=== PATIENT | female | born 1945 | race Caucasian/White ===

== ENCOUNTER 2016-12-16 11:54 | Observation (INO) | payer MEDICARE, OTHER ==
[2016-12-16] MEDS ORDERED: METHYLPREDNISOLONE SOD SUCC/PF 40 MG/ML VIAL IV ONE (12:07)
[2016-12-16] MEDS ORDERED: ALBUTEROL SULFATE/IPRATROPIUM 3 ML NEBU IH ONE ×2 (12:07→12:18)
[2016-12-16 12:27] LABS: Hemoglobin 13.5 gm/dL (12.5-16.0); Mean Cell Volume 91.3 fl (78-100); Mean Corpuscular Hemoglobin 29.3 pg (27-31); Mean Corpuscular Hgb Conc 32.1 g/dl (32-36); Mean Platelet Volume 10.3 fl (6.0-9.5); Neutrophil # 5.9 K/mm3 (1.3-6.0); Neutrophil % 72.6 % (42-75.0); Platelet Count 230 K/mm3 (150-450); Red Cell Distribution Width 13.1 % (11.5-14.0); White Blood Count 8.1 K/mm3 (4.0-10.5)
--- OUTSIDE RECORDS SUMMARY | 2016-12-16 12:29 | XMS REPORT | Continuity of Care Document ---
:1945 Author Organization [facility] ([facility]) Address [address] [place] [address] Phone [phone] Care Team Providers Name Role Phone Unavailable Primary Care Provider Unavailable Source Comments This disclosure is being made pursuant to the Care Everywhere program, applicable federal and state laws, and may not contain all informaitonavailable regarding this patient.[facility] ([facility]) Active Allergies and Adverse Reactions Not on File Current Medications Not on file Active Problems Not on file Social History Tobacco Use Types Packs/Day Years Used Date Never Assessed Last Filed Vital Signs Vital Sign Reading Time Taken Blood Pressure - - Pulse - - Temperature - - Respiratory Rate - - Height 1.575 m (5' 2") 07/17/2001 8:00 PM CDT Weight 66.497 kg (146 lb 9.6 oz) 07/17/2001 8:00 PM CDT Body Mass Index 26.81 07/17/2001 8:00 PM CDT Oxygen Saturation - - Plan of Care Health Maintenance Due Date Last Done Comments Hepatitis B Vaccine (1 of 3 - Primary Series) 1945 Tdap Vaccine 1955 Lipid Disorder Screening 1962 Td Vaccine 1962 Colonoscopy 1994 Mammogram 10/05/2002 10/05/2001 Zoster Vaccine 2004 Osteoporosis Screening (DXA Bone Density) 2009 Pneumococcal Vaccine (1 of 2 - PCV13) 2009 Influenza Vaccine: Seasonal (#1) 06/07/2016 Results from Last 3 Months Not on file
[2016-12-16] MEDS ORDERED: METHYLPREDNISOLONE SOD SUCC/PF 40 MG/ML VIAL ONE (12:33)
[2016-12-16 12:48] LABS: Urine Bilirubin Negative (NEGATIVE); Urine Blood Negative /ul (NEGATIVE); Urine Ketone Negative (NEGATIVE); Urine Nitrite Negative (NEGATIVE); Urine Protein Negative (NEGATIVE); Urine Urobilinogen Normal (NORMAL)
[2016-12-16 12:48] LABS: Albumin * 3.8 gm/dl (3.4-5.0); Anion Gap 11.8 mmol/L (6.8-13.8); BUN/Creatinine Ratio 17.9 (9.0-21.6); Blood Urea Nitrogen 14 mg/dL (3-23); Calcium * 9.7 mg/dL (7.9-10.9); Carbon Dioxide 28.4 mmol/L (24-32.6); Chloride 104 mmol/L (97-106); Glucose * 101 mg/dL (70-110); Potassium 4.2 mmol/L (3.4-4.6); Sodium 140 mmol/L (132-142); Total Protein 7.8 gm/dL (6.2-8.2)
[2016-12-16 12:49] LABS: ALT 22 U/L (19-67); AST 15 U/L (0-48); Alkaline Phosphatase * 108 U/L (50-170); Bilirubin, Total 0.3 mg/dL (0.0-1.1); Ca. Corrected For Albumin 9.5 mg/dL (8.4-10.2); Lipase 121 U/L (73-393); Troponin I Less than 0.017 ng/ml (0.00-0.10)
[2016-12-16 13:07] LABS: Urine Appearance Clear; Urine Bacteria None Seen; Urine Color Yellow; Urine RBC None Seen /hpf (0-5); Urine WBC None Seen /hpf (0-5)
[2016-12-16] MEDS ORDERED: DIATRIZOATE MEGLU/DIATRIZO SOD 30 ML BTL ONE (13:49)
[2016-12-16] MEDS ORDERED: DIATRIZOATE MEGLU/DIATRIZO SOD 30 ML BTL PO ONE (13:53)
[2016-12-16] MEDS ORDERED: ALBUTEROL SULFATE 2.5 MG/0.5 ML VIAL.NEB IH ONE ×2 (16:31→16:33)
--- OUTSIDE RECORDS SUMMARY | 2016-12-16 16:57 | XMS REPORT | Continuity of Care Document ---
:1945 Author Organization [facility] ([facility]) Address [address] [place] [address] Phone [phone] Care Team Providers Name Role Phone Unavailable Primary Care Provider Unavailable Source Comments This disclosure is being made pursuant to the Care Everywhere program, applicable federal and state laws, and may not contain all informaitonavailable regarding this patient.[facility] ([facility]) Active Allergies and Adverse Reactions Not on [...]
--- NOTE | 2016-12-16 16:58 | ERNOTE ---
Dyspnea - Date Date of Service: 12/16/16 - General Presenting Symptoms: shortness of breath, other - right sided abdominal pain Time Seen by Provider: 12/16/16 12:02 Source: patient Exam Limitations: no limitations - Immun/Allergies/Home Medications Immunizations: IMMUNIZATION HX Immunizations Up to Date Yes History of Influenza Vaccine No Hx Pneumococcal Vaccination Yes Allergies/Adverse Reactions: Allergies No Known Allergies Allergy (Verified 12/16/16 12:43) Home Medications: HOME MEDICATIONS Fluticasone/Salmeterol [Advair 100-50 Diskus] 1 each IH DAILY 10/26/15 [Last Taken Unknown] Albuterol Sulfate [Albuterol Sulfate 0.63 MG/3ML] 0.63 mg IH PRN #1 vial.neb [Last Taken Unknown] Amlodipine Besylate 10 mg PO DAILY 04/04/16 [Last Taken Unknown] Omeprazole 40 mg PO DAILY 04/04/16 [Last Taken 04/04/16] Tramadol HCl [Rybix Odt] 50 mg PO HS 12/16/16 [Last Taken Unknown] - History of Present Illness Narrative: Patient presents to the ED for increased SOB and right sided abdominal pain. SHe relates she has been having right upper abdominal pain for the last several day, started over the weekend. Couldn't sleep with it. Normal bowel movements. Went to doctor, labs and x-ray done - reviewed. She also relates increase SOB and GARCIA, increasing over the last several days. No CP. No fever. Some increased cough. No vomiting or urinary Sx. Nothing seems to make the abdominal pain better or worse. Severity: moderate Initiating event: Reports: none Modifying Factors - (Improves): Reports: rest, other Modifying Factors (Worsens): Reports: activity Associated Symptoms-Dyspnea: Reports: cough, wheezing. Denies: fever/chills, chest pain/discomfort Prior Treatment: Reports: recently seen Review of Systems - Review of Systems Constitutional: Absent: fever ENT: Absent: sore throat Respiratory: Present: shortness of breath Cardiology: Absent: chest pain Gastrointestinal/Abdominal: Present: abdominal pain Genitourinary: Absent: dysuria All Other Systems: All systems neg except as marked - Patient's Past Medical History Patient History - Medical: GERD Patient History - Cardiac/Respiratory: COPD Patient History - Cancer: No Hx of Cancer Patient History - Surgical Procedures: Appendectomy, Cholecystectomy, Tubal Ligation Patient History - Other: None LMP (females 10-50): Menopausal - Family History Mother Family History - Medical: No pertinent hx Family History - Cardiac/Respiratory: Hypertension Father Family History - Medical: Family History - Cardiac/Respiratory: Coronary Heart Disease, CVA/Stroke, Hypertension - Social History Living Situations: home Abuse History: No History of abuse Psych History: No pertinent hx Does anyone smoke in the home?: No Smoking Status: Former smoker Alcohol Use: occasionally Drug Use: none - Immunizations Immunizations Up to Date: Yes Hx Pneumococcal Vaccination: Yes History of Influenza Vaccine: No Physical Exam - Physical Exam General Appearance: Present: alert, mild distress Eye Exam: Normal inspection: bilateral, PERRL: bilateral Ears, Nose, Throat: Present: normal ENT inspection Neck: Present: normal inspection Respiratory: Present: wheezing, other - mild tachypnea, diffuse scattered wheezing. Absent: stridor Cardiovascular/Chest: Present: regular rate, rhythm Gastrointestinal/Abdominal: Present: normal bowel sounds, nondistended, soft, other - tenderness RUQ, no mass, no peritoneal signs. Non-surgical exam. 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 Absent: motor weakness Skin Exam: Absent: skin rash ED Progress - Results and Orders Patient's Lab Results:: I have reviewed the patient's lab results. - Vital Signs Patient's Vital Signs:: I have reviewed the patient's vital signs. Vital Signs: Vital Signs 12/16/16 12/16/16 12/16/16 11:55 12:42 13:54 Temperature 36.1 C L Pulse Rate 88 81 85 Respiratory 17 17 16 Rate Blood Pressure 190/84 154/60 151/68 O2 Sat by Pulse 96 96 92 Oximetry 12/16/16 12/16/16 12/16/16 14:10 14:47 15:10 Temperature Pulse Rate 87 87 91 Respiratory 16 16 16 Rate Blood Pressure 159/74 177/66 178/88 O2 Sat by Pulse 93 93 93 Oximetry - EKG EKG: NSR EKG read: Interp. by me EKG Comments: rate 85. No STEMI, non-specific ST/T wave changes. - X-Ray X-Ray #1 X-Ray: chest Interpretation: Reviewed by me X-ray Comments: I reviewed radiology report - CT/Ultrasound CT/Ultrasound Narrative: CT report reviewed per radiology - Progress/Reassessment Chief Complaint: Dyspnea Progress Note-Subjective: 12/16/16 16:56 Patient received IV solumedrol and neb. Additional albuterol give. Still with some mild wheezing. With ambulation she becomes quite SOB and tachypnic, sats 88%RA and HR > 110. Given this she does not feel well enough to fgo home. D/W Dr Haywood who will admit. No clear etiology of her abdominal pain. Departure Clinical Impression: COPD with exacerbation, Abdominal pain - Departure Disposition: [facility] Condition: Fair Referrals: Pau Haywood MD [Primary Care Provider] -
[2016-12-16] MEDS ORDERED: MAGNESIUM CITRATE 300 ML BTL PO ONE (20:55)
[2016-12-16] MEDS ORDERED: METHYLPREDNISOLONE SOD SUCC 60 MG in WATER FOR INJ.,BACTERIOSTATIC 0 ML IV SCH (21:00)
[2016-12-16] MEDS ORDERED: traMADol HCL 50 MG TABLET PO SCH (21:07)
[2016-12-16] MEDS ORDERED: KETOROLAC TROMETHAMINE 15 MG/ML VIAL IV PRN (21:25)
--- NOTE | 2016-12-16 21:26 | HP ---
Chief Complaint - Chief Complaint Date of Service: 12/16/16 Time of Service: 21:25 Chief Complaint: "Abdominal Pain, SOB. ". Source of HPI- Pt; reliable, ER provider report. History of Present Illness: Ms. Maddox is a 71-yr-old [place] pt of Dr. Pau Haywood with a PMH of: COPD, HTN, GERD & Osteoathritis. Pt states that 2 weeks ago, she developed pain on the Lateral RT side of the Abdomen. She went to see a chiropractor as she thought her pain was from poor sleeping position. She states that the chiropractor services seemed to help initially, but the pain got worse again and she was advised to see her PCP. She saw Dr. Haywood on 12/14/16 and had Abd. X-ray imaging which was unremarkable except for moderate stool retention. But in speaking to her, she states that her bowels are moving normally. She had laboratory studies as well and they were in NR. She was also prescribed Tramadol for pain. Pt states that she has been taking the medication as ordered , but the pain has not subsided. This morning after she woke up, she suddenly felt SOB and along with the ongoing RT side abd pain, she chose to come to the [facility] ER. She was noted to have expiratory wheezing in ER and received treatments with nebulizer and IV steroid. Due to the history of COPD, decision was made to admit her under observation to ensure she does not suffer worsening airway limitation. - Patient's Past Medical History Patient History - Medical: GERD, Osteoarthritis Patient History - Cardiac/Respiratory: COPD Patient History - Cancer: No Hx of Cancer Patient History - Surgical Procedures: Appendectomy, Cholecystectomy, Tubal Ligation Patient History - Other: None LMP (females 10-50): Menopausal - Family History Mother Family History - Medical: No pertinent hx Family History - Cardiac/Respiratory: Hypertension Father Family History - Medical: Family History - Cardiac/Respiratory: Coronary Heart Disease, CVA/Stroke, Hypertension - Social History Living Situations: home Abuse History: No History of abuse Psych History: No pertinent hx Does anyone smoke in the home?: No Smoking Status: Former smoker Have you smoked in the past 12 months: No Smoking Start Date: 11/07/00 Alcohol Use: occasionally Drug Use: none - Immunizations Immunizations Up to Date: Yes Hx Pneumococcal Vaccination: Yes History of Influenza Vaccine: Yes Review Of Systems (GEN) - Review of Systems Generalized/Overall Review: Present: Diaphoresis. Absent: Weakness, Chills, Fever, Fatigue EENTM: Absent: Eye Pain, Blurred Vision, Tearing, Double Vision, Nose Congestion Respiratory: Absent: Cough, Shortness of Breath, Wheezing Cardiac: Absent: Chest Pain, Edema, Palpitations Abdominal: Absent: Nausea, Vomiting, Hematemesis, Abdominal Pain, Constipation, Diarrhea, Melena Genitourinary: Absent: Burning, Itching, Urgency, Frequency Musculoskeletal: Present: Joint Pain, Other - RT Lateral ABD Pain. Neurological: Absent: Headache, Anxiety, Depressed, Emotional Problems, Weakness Skin: Absent: Dryness, Lesions Endocrine: Absent: Intolerance to Cold, Intolerance to Heat, Increased Hunger, Increased Thirst Misc: All systems neg except as marked Immunizations: IMMUNIZATION HX Immunizations Up to Date Yes History of Influenza Vaccine No Hx Pneumococcal Vaccination Yes Allergies/Adverse Reactions: Allergies Allergy/AdvReac Type Severity Reaction Status Date / Time No Known Allergies Allergy Verified 12/16/16 12:43 Home Medications: HOME MEDICATIONS Fluticasone/Salmeterol [Advair 100-50 Diskus] 1 each IH DAILY 10/26/15 [Last Taken Unknown] Albuterol Sulfate [Albuterol Sulfate 0.63 MG/3ML] 0.63 mg IH PRN #1 vial.neb [Last Taken Unknown] Amlodipine Besylate 10 mg PO DAILY 04/04/16 [Last Taken Unknown] Omeprazole 40 mg PO DAILY 04/04/16 [Last Taken 04/04/16] Tramadol HCl [Rybix Odt] 50 mg PO HS 12/16/16 [Last Taken Unknown] Exam - Exam Vital Signs: Vital Signs - Last Taken Temp 36.7 C 12/16/16 17:12 Pulse 93 12/16/16 17:12 Resp 20 12/16/16 17:12 BP 145/69 12/16/16 17:12 Pulse Ox 93 12/16/16 17:12 Constitutional: Present: Alert, Oriented x3, No distress ENT Exam: Present: normal ENT inspection, hearing grossly normal. Absent: nasal congestion, nasal drainage, dry mucous membranes Eye Exam: bilateral eye: normal inspection, PERRL Neck: Present: full range of motion, supple, normal inspection Back Exam: Present: no CVA tenderness Breasts: Present: Exam deferred Respiratory: Present: lungs clear, no accessory muscle use, No wheezing Cardiovascular/Chest: Present: normal peripheral pulses, regular rate, rhythm, no murmur Abdomen: Present: Normal bowel sounds, soft, nontender /Rectal: Present: Exam deferred Extremity: Present: normal range of motion, non-tender, normal inspection Skin Exam: Present: warm/dry, no cyanosis Lymphatic: Present: no adenopathy Neurologic: Present: no motor/sensory deficits, alert, oriented x 3 Appearance: Present: appropriate appearance, appropriate insight Eye contact: Present: cooperative, good eye contact, normal speech Thoughts: Present: normal thought pattern, no apparent hallucination Diagnostic Studies: Laboratory Results WBC 8.1 K/mm3 (4.0-10.5) 12/16/16 12:20 RBC 4.60 M/mm3 (4.2-5.4) 12/16/16 12:20 Hgb 13.5 gm/dL (12.5-16.0) 12/16/16 12:20 Hct 42.0 % (37.0-47.0) 12/16/16 12:20 MCV 91.3 fl (78-100) 12/16/16 12:20 MCH 29.3 pg (27-31) 12/16/16 12:20 MCHC 32.1 g/dl (32-36) 12/16/16 12:20 RDW 13.1 % (11.5-14.0) 12/16/16 12:20 Plt Count 230 K/mm3 (150-450) 12/16/16 12:20 MPV 10.3 fl (6.0-9.5) H 12/16/16 12:20 Immature Gran % (Auto) 0.40 % (0.001-0.429) 12/16/16 12:20 Immature Gran # (Auto) 0.03 K/mm3 (0.000-0.0310) 12/16/16 12:20 Neutrophils % 72.6 % (42-75.0) 12/16/16 12:20 Lymphocytes % 18.0 % (20-51) L 12/16/16 12:20 Monocytes % 5.2 % (0.0-9) 12/16/16 12:20 Eosinophils % 2.8 % (0.0-3.0) 12/16/16 12:20 Basophils % 1.0 % (0.0-1.0) 12/16/16 12:20 Nucleated RBC % 0.0 k/mm3 (0-1) 12/16/16 12:20 Neutrophils # 5.9 K/mm3 (1.3-6.0) 12/16/16 12:20 Lymphocytes # 1.5 k/mm3 (1.5-3.5) 12/16/16 12:20 Monocytes # 0.4 k/mm3 (0.0-1.0) 12/16/16 12:20 Eosinophils # 0.2 k/mm3 (0.0-0.7) 12/16/16 12:20 Absolute Basophils 0.1 k/mm3 (0.0-0.1) 12/16/16 12:20 Sodium 140 mmol/L (132-142) 12/16/16 12:20 Plasma Sodium 140 mmol/L (130-142) 12/16/16 12:20 Potassium 4.2 mmol/L (3.4-4.6) 12/16/16 12:20 Chloride 104 mmol/L (97-106) 12/16/16 12:20 Carbon Dioxide 28.4 mmol/L (24-32.6) 12/16/16 12:20 Anion Gap 11.8 mmol/L (6.8-13.8) 12/16/16 12:20 BUN 14 mg/dL (3-23) 12/16/16 12:20 Creatinine 0.78 mg/dL (0.4-1.4) 12/16/16 12:20 Est GFR (Non-Af Amer) 77 mL/min (60-130) 12/16/16 12:20 BUN/Creatinine Ratio 17.9 (9.0-21.6) 12/16/16 12:20 Random Glucose 101 mg/dL (70-110) D 12/16/16 12:20 Lactic Acid, Venous 1.6 mmol/L (0.4-2.0) 12/16/16 12:20 Calcium 9.7 mg/dL (7.9-10.9) 12/16/16 12:20 Calcium Adj for Albumin 9.5 mg/dL (8.4-10.2) 12/16/16 12:20 Total Bilirubin 0.3 mg/dL (0.0-1.1) 12/16/16 12:20 AST 15 U/L (0-48) 12/16/16 12:20 ALT 22 U/L (19-67) 12/16/16 12:20 Alkaline Phosphatase 108 U/L (50-170) 12/16/16 12:20 Troponin I Less than 0.017 ng/ml (0.00-0.10) 12/16/16 12:20 Total Protein 7.8 gm/dL (6.2-8.2) 12/16/16 12:20 Albumin 3.8 gm/dl (3.4-5.0) 12/16/16 12:20 Lipase 121 U/L (73-393) 12/16/16 12:20 Urine Color Yellow 12/16/16 12:38 Urine Appearance Clear 12/16/16 12:38 Urine pH 6.0 pH (5.0-7.0) 12/16/16 12:38 Ur Specific [place] 1.010 SP.GR. (1.005-1.010) 12/16/16 12:38 Urine Protein Negative mg/dL (NEGATIVE) 12/16/16 12:38 Urine Glucose (UA) Negative mg/dL (NEGATIVE) 12/16/16 12:38 Urine Ketones Negative mg/dL (NEGATIVE) 12/16/16 12:38 Urine Blood Negative /ul (NEGATIVE) 12/16/16 12:38 Urine Nitrate Negative (NEGATIVE) 12/16/16 12:38 Urine Bilirubin Negative mg/dl (NEGATIVE) 12/16/16 12:38 Urine Urobilinogen Normal EU/dl (NORMAL) 12/16/16 12:38 Ur Leukocyte Esterase Negative /ul (NEGATIVE) 12/16/16 12:38 Urine RBC None seen /hpf (0-5) 12/16/16 12:38 Urine WBC None seen /hpf (0-5) 12/16/16 12:38 Ur Epithelial Cells None seen /hpf (0-5) 12/16/16 12:38 Urine Bacteria None seen (NONE) 12/16/16 12:38 Urine Culture Comments No culture indicated 12/16/16 12:38 Assessment/Plan - Assessment/Plan (1) COPD with exacerbation Assessment: Even though pt reported being dyspneic and had exp. wheezing, she did not have other symptoms that accompany COPD Exacerbation- worsening cough & increasing sputum production. The Hematology and chemistry labs was unremarkable. The CXR did not have any acute findings. Will continue treatment with scheduled duonebs. Anticipate discharge in am and may continue with COPD maintenance treatments. Problem: Acute (2) Abdominal pain Assessment: The CT of the Abdomen did not have any acute findings. The Abd. X-ray did not have acute findings apart from moderate stool retention, and states that her bowels are moving normally, and declined the stool stimulant laxative. Labs results were in NR. The abd pain is not accompanied with n/v, diarrhea & pain radiation. In examining Ms Maddox, I believe her RT Lateral abd pain is muscular related and involves the external oblique muscle especially given the fact that there is reproduction of pain with applied pressure & worsening pain with exercise. May consider adding topical agents- lidocaine, capscaisin cream & Encourage chiropractics manipulation. Problem: Acute (3) GERD (gastroesophageal reflux disease) Problem: Chronic (4) Hypertension Problem: Chronic Qualifiers: Hypertension type: essential hypertension Qualified Code(s): I10 - Essential (primary) hypertension
[2016-12-16] MEDS: ALBUTEROL SULFATE/IPRATROPIUM 3 ML NEBU IH SCH (21:28)
[2016-12-16] MEDS ORDERED: METHYLPREDNISOLONE SOD SUCC/PF 125 MG/2 ML VIAL IV SCH (22:00)
[2016-12-17] MEDS: ALBUTEROL SULFATE/IPRATROPIUM 3 ML NEBU IH SCH ×2 (00:27→06:16)
[2016-12-17] MEDS ORDERED: PANTOPRAZOLE SODIUM 40 MG TABLET.EC PO SCH (07:00)
--- NOTE | 2016-12-17 08:45 | DS ---
Description of Stay: Demi Maddox is a 71-yr-old WF pt , with a PMH of: COPD, HTN, GERD & Osteoathritis who was admited on 12/16/2016 for SOB abd abdominal pain. Pt states that 2 weeks [employer], she developed pain on the Lateral RT side of the Abdomen. She went to see a chiropractor as she thought her pain was from poor sleeping position. She states that the chiropractor services seemed to help initially, but the pain got worse again and she was advised to see her PCP. She saw Dr. Haywood on 12/14/16 and had Abd. X-ray imaging which was unremarkable except for moderate stool retention. But in speaking to her, she states that her bowels are moving normally. She had laboratory studies as well and they were in NR. She was also prescribed Tramadol for pain. Pt states that she has been taking the medication as ordered, but the pain has not subsided. This morning after she woke up, she suddenly felt SOB and along with the ongoing RT side abd pain, she chose to come to the [facility] ER. She was noted to have expiratory wheezing in ER and received treatments with nebulizer and IV steroid. Due to the history of COPD, decision was made to admit her under observation to ensure she does not suffer worsening airway limitation. She improved clinically and thismorning had 2 BM's. She is feeling much better and no longer SOB. She is stable to be discharge and will schedule a EGD with Dr. Snow on an outpatient basis with her follow up.. Procedures Performed: none Discharge Disposition: Home self care Disposition: Home self-care Condition: Good Discharge Activity: Activity as tolerated Discharge Diet: General/regular food Referrals: Pau Haywood MD [Primary Care Provider] - Additional Patient Instructions (free text): Follow up with PCP in 2 weeks. Prescriptions (Any new or edited meds): Albuterol Sulfate [Proair Hfa] 1 - 2 puff IH Q4H PRN #1 inhaler PRN Reason: Shortness Of Breath Docusate Sodium [Colace] 100 mg PO BID #60 capsule Complete Home Medications List: Complete Home Medication List: Fluticasone/Salmeterol [Advair 100-50 Diskus] 1 each IH DAILY 10/26/15 Albuterol Sulfate [Albuterol Sulfate 0.63 MG/3ML] 0.63 mg IH PRN #1 vial.neb Amlodipine Besylate 10 mg PO DAILY 04/04/16 Omeprazole 40 mg PO DAILY 04/04/16 Tramadol HCl [Rybix Odt] 50 mg PO HS 12/16/16 Albuterol Sulfate [Proair Hfa] 1 - 2 puff IH Q4H PRN #1 inhaler 12/17/16 Docusate Sodium [Colace] 100 mg PO BID #60 capsule 12/17/16
[2016-12-17] MEDS ORDERED: FLUTICASONE IH SCH ×2 (09:00)
[2016-12-17] MEDS ORDERED: SALMETEROL IH SCH ×2 (09:00)
[2016-12-17] MEDS ORDERED: amLODIPine BESYLATE 10 MG TABLET PO SCH (09:00)
[2016-12-17 10:03] VITALS: BP 133/68
== END 2016-12-17 11:50 | disposition home or self-care (01) ==
LOC: ER 11:54 → MS 16:44
PROVIDERS: ADMIT Internal Medicine; ATTEND Internal Medicine
DX: J44.0 Chronic obstructive pulmonary disease with (acute) lower respiratory infection (principal); J20.9 Acute bronchitis, unspecified; Z87.891 Personal history of nicotine dependence; R10.9 Unspecified abdominal pain; K21.9 Gastro-esophageal reflux disease without esophagitis; I10 Essential (primary) hypertension
CPT/HCPCS: 36415; 71020; 74177; 80053; 81001; 83605; 83690; 84484; 85025; 93005; 94640; 96374; 99284; G0378

== ENCOUNTER 2016-12-21 12:03 | Emergency (ER) | payer MEDICARE, OTHER ==
[2016-12-21 12:26] LABS: Hematocrit 42.7 % (37.0-47.0); Hemoglobin 14.1 gm/dL (12.5-16.0); Mean Cell Volume 90.3 fl (78-100); Mean Corpuscular Hemoglobin 29.8 pg (27-31); Mean Platelet Volume 10.3 fl (6.0-9.5); Neutrophil % 84.3 % (42-75.0); Platelet Count 276 K/mm3 (150-450); Red Blood Count 4.73 M/mm3 (4.2-5.4); White Blood Count 11.9 K/mm3 (4.0-10.5)
[2016-12-21 12:52] LABS: Anion Gap 17.6 mmol/L (6.8-13.8); BUN/Creatinine Ratio 14.7 (9.0-21.6); Bilirubin, Total 0.4 mg/dL (0.0-1.1); Ca. Corrected For Albumin 9.2 mg/dL (8.4-10.2); Calcium * 9.5 mg/dL (7.9-10.9); Carbon Dioxide 24.3 mmol/L (24-32.6); Potassium 3.9 mmol/L (3.4-4.6); Total Protein 8.3 gm/dL (6.2-8.2)
[2016-12-21] MEDS ORDERED: predniSONE 20 MG TABLET PO ONE (13:35)
[2016-12-21] MEDS ORDERED: ALBUTEROL SULFATE/IPRATROPIUM 3 ML NEBU IH ONE ×2 (13:35→13:43)
--- NOTE | 2016-12-21 13:36 | ERNOTE ---
Dyspnea - General Presenting Symptoms: shortness of breath Time Seen by Provider: 12/21/16 13:17 Source: patient, family Exam Limitations: no limitations - Immun/Allergies/Home Medications Immunizations: IMMUNIZATION HX Immunizations Up to Date Yes History of Influenza Vaccine Yes Hx Pneumococcal Vaccination Yes Allergies/Adverse Reactions: Allergies influenza virus vaccine ts [From Fluarix] Adverse Reaction (Mild, Verified 12/21/16 12:11) Other Home Medications: HOME MEDICATIONS Fluticasone/Salmeterol [Advair 100-50 Diskus] 1 each IH DAILY 10/26/15 [Last Taken Unknown] Albuterol Sulfate [Albuterol Sulfate 0.63 MG/3ML] 0.63 mg IH PRN #1 vial.neb [Last Taken Unknown] Amlodipine Besylate 10 mg PO DAILY 04/04/16 [Last Taken Unknown] Omeprazole 40 mg PO DAILY 04/04/16 [Last Taken 04/04/16] Tramadol HCl [Rybix Odt] 50 mg PO HS 12/16/16 [Last Taken Unknown] Albuterol Sulfate [Proair Hfa] 1 - 2 puff IH Q4H PRN #1 inhaler 12/17/16 [Last Taken Unknown] Docusate Sodium [Colace] 100 mg PO BID #60 capsule 12/17/16 [Last Taken Unknown] Albuterol Sulfate/Ipratropium [Duoneb 2.5-0.5MG/3ML Soln] 3 ml IH QID #150 vial 12/21/16 [Last Taken Unknown] predniSONE [Prednisone] 3 tab PO DAILY #18 tab 12/21/16 [Last Taken Unknown] - History of Present Illness Narrative: Patient was admitted to the hospital on 12/16 for COPD exacerbation. She had received one dose of steroids in the ER, was feeling better the next days and discharged. A couple of days later her shortness of breath increased again. She has a cough with white sputum, breathing gets worse with minimal exertion. 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 Denies: out of meds Frequency of episodes: Reports: occassional episodes Modifying Factors - (Improves): Reports: albuterol, rest Modifying Factors (Worsens): Reports: activity Associated Symptoms-Dyspnea: Reports: cough. Denies: fever/chills, sweating Prior Treatment: Reports: recently seen. Denies: currently on antibiotics Review of Systems - Review of Systems Constitutional: Present: recent illness. Absent: fever ENT: Absent: nose congestion, sore throat Respiratory: Present: See HPI Cardiology: Present: See HPI, chest pain - tightness with cough Gastrointestinal/Abdominal: Absent: nausea, vomiting, abdominal pain Genitourinary: Present: no symptoms reported Musculoskeletal: Absent: muscle pain Neurological: Absent: headache - Patient's Past Medical History Patient History - Medical: GERD, Osteoarthritis Patient History - Cardiac/Respiratory: COPD Patient History - Cancer: No Hx of Cancer Patient History - Surgical Procedures: Appendectomy, Cholecystectomy, Tubal Ligation Patient History - Other: None - Family History Mother Family History - Medical: No pertinent hx Family History - Cardiac/Respiratory: Hypertension Father Family History - Medical: Family History - Cardiac/Respiratory: Coronary Heart Disease, CVA/Stroke, Hypertension - Social History Living Situations: home Abuse History: No History of abuse Psych History: No pertinent hx Does anyone smoke in the home?: No Smoking Status: Former smoker Alcohol Use: occasionally Drug Use: none - Immunizations Immunizations Up to Date: Yes Hx Pneumococcal Vaccination: Yes History of Influenza Vaccine: Yes Physical Exam - Physical Exam General Appearance: Present: wd/wn, alert, no apparent distress Eye Exam: Normal inspection: bilateral, PERRL: bilateral Ears, Nose, Throat: Present: normal pharynx Neck: Absent: lymphadenopathy (R), lymphadenopathy (L) Respiratory: Present: no accessory muscle use, lungs clear, decreased breath sounds - very, expiration (prolonged) Cardiovascular/Chest: Present: regular rate, rhythm, no murmur Neurological Exam: Present: alert, oriented, normal mood/affect Skin Exam: Present: normal color, warm/dry ED Progress - Results and Orders Patient's Lab Results:: I have reviewed the patient's lab results. - Vital Signs Patient's Vital Signs:: I have reviewed the patient's vital signs. Vital Signs: Vital Signs 12/21/16 12/21/16 12/21/16 12:08 12:20 12:35 Temperature 36.2 C L Pulse Rate 102 H 108 H 100 Respiratory 18 15 17 Rate Blood Pressure 172/81 195/88 157/78 O2 Sat by Pulse 95 93 95 Oximetry 12/21/16 12/21/16 13:09 13:19 Temperature Pulse Rate 89 99 Respiratory 20 Rate Blood Pressure 144/72 O2 Sat by Pulse 95 Oximetry - X-Ray X-Ray #1 X-Ray: chest - chronic changes, no infiltrate Interpretation: Reviewed by me - Progress/Reassessment Chief Complaint: Dyspnea Progress Note-Subjective: 12/21/16 14:02 feeling a little better after duoneb, O2 sat 95% on RA discussed diagnosis and plan patient reports that her O2 sat dropped to 87% after walking back from bathroom , offered to confirm that and try to set up home O2 if indicated. Patient declined Departure Clinical Impression: COPD with exacerbation - Departure Disposition: Home self-care Condition: Fair Instructions: Chronic Obstructive Pulmonary Disease Exacerbation, [id number] Additional Instructions: use the duoneb every six hours, the albuterol as needed in between take the prednisone till it is gone follow up with Dr Carrizales as scheduled in 10 days Referrals: Pau Haywood MD [Primary Care Provider] - Prescriptions: Albuterol Sulfate/Ipratropium [Duoneb 2.5-0.5MG/3ML Soln] 3 ml IH QID #150 vial predniSONE [Prednisone] 3 tab PO DAILY #18 tab
[2016-12-21] MEDS ORDERED: ALBUTEROL SULFATE 2.5 MG/0.5 ML VIAL.NEB IH ONE (13:38)
[2016-12-21] MEDS ORDERED: predniSONE 20 MG TABLET ONE (13:38)
--- OUTSIDE RECORDS SUMMARY | 2016-12-21 13:44 | XMS REPORT | Continuity of Care Document ---
:1945 Author Organization [facility] ([facility]) Address [address] [place] [address] Phone [phone] Care Team Providers Name Role Phone Unavailable Primary Care Provider Unavailable Source Comments This disclosure is being made pursuant to the Care Everywhere program, applicable federal and state laws, and may not contain all informaitonavailable regarding this patient.[facility] ([facility]) Active Allergies and Adverse Reactions Not [...]
[2016-12-21 14:10] VITALS: BP 133/77
== END 2016-12-21 14:13 | disposition home or self-care (01) ==
LOC: ER 12:03
DX: J44.1 Chronic obstructive pulmonary disease with (acute) exacerbation (principal); J45.901 Unspecified asthma with (acute) exacerbation; Z87.891 Personal history of nicotine dependence; K21.9 Gastro-esophageal reflux disease without esophagitis

== ENCOUNTER 2017-03-14 11:05 | Day surgery (SDC) | payer MEDICARE, OTHER ==
[~2017-03-14 11:05] MED LIST: RINGERS SOLUTION,LACTATED 1,000 ML IV PRN
--- OUTSIDE RECORDS SUMMARY | 2017-03-14 11:09 | XMS REPORT | Continuity of Care Document ---
:1945 Author Organization [facility] ([facility]) Address [address] [place] [address] Phone [phone] Care Team Providers Name Role Phone Unavailable Primary Care Provider Unavailable Source Comments This disclosure is being made pursuant to the Care Everywhere program, applicable federal and state laws, and may not contain all informaitonavailable regarding this patient.[facility] ([facility]) Active Allergies and Adverse [...]
[2017-03-14] MEDS ORDERED: RINGERS SOLUTION,LACTATED 1,000 ML IV ONE ×2 (11:53→15:00)
[2017-03-14] MEDS ORDERED: RINGERS SOLUTION,LACTATED 1,000 ML IV PRN (15:31)
[2017-03-14 16:31] VITALS: BP 143/77
--- NOTE | 2017-03-14 18:43 | OR ---
Operative Report - Dictated Report Narrative: Operative Report Date of operation: 03/14/2017 Preoperative diagnosis: No recent dedicated colon studies. Abnormal CT scan of the stomach Postoperative diagnosis: Hiatal hernia. Gastropathy (pathology and CLOtest pending). Diverticulosis. 3 mm and 2 mm polyps in the cecum. 3 mm polyp in the ascending colon (pathology pending) Operation: EGD with biopsies. Colonoscopy with hot biopsy forceps polypectomy in the cecum and ascending colon Surgeon: Dr Snow Anesthesia: FERNANDO DANIELS CRNA Indications for procedure: The patient is a 71-year-old female referred by Dr. Haywood. Her last colonoscopy was in 2007. She has significant GERD symptoms. She had a recent CAT scan was suggested abnormality of the gastric mucosa and endoscopy was suggested. Findings: Hiatal hernia with significant gastropathy (pathology and CLOtest pending). 2 polyps in the cecum and one in the ascending colon (pathology pending). Diverticulosis Narrative of procedure: The patient was identified preoperatively, and prior to the administration of anesthetic a multidisciplinary timeout was observed EGD: With the patient in the recumbent position, a bite-block was placed, intravenous sedation was administered, and the patient's eyes covered with a towel. The flexible fiberoptic gastroscope was advanced into the posterior pharynx which appeared normal. The supraglottic larynx appeared normal. The cords appeared normal, moved well, and opposed in the midline. The scope was advanced under direct vision into the proximal esophagus which appeared normal. The esophagus appeared freely distensible with normal mucosa. The esophageal mucosa appeared normal down to the gastroesophageal junction where the mucosal transition was sharp but with evidence of mild inflammation. The GE junction appeared normally distensible. There was a small hiatal hernia. The scope was advanced into the stomach proper which was insufflated with air. Immediately apparent was norman gastric erythema and friability but no raya ulcers or neoplastic lesions were appreciated. A retroflexed view of the gastric fundus demonstrated the hiatal hernia and norman gastric erythema but revealed no additional lesions. The scope was redirected toward the pylorus. The pylorus appeared patent. The scope was advanced into the duodenal bulb which appeared normal. The scope was advanced further to the horizontal portion of the duodenum which appeared normal, specifically the villous architecture appeared well preserved and clear bile was present. The scope was slowly withdrawn through the duodenal bulb with confirmation that no active ulcer was present. The scope was withdrawn into the stomach and u.s. representative biopsies of gastric mucosa obtained for CLOtest and pathology. The biopsy sites were seen to be hemostatic. The insufflated air was removed, the scope withdrawn from the patient, and this portion of the procedure terminated. COLONOSCOPY: The patient was then placed in the left lateral position, and the perineum was inspected. There was no evidence of pilonidal disease or skin breakdown. The external appearance of the anus was normal. Sphincter tone was good. The flexible fiberoptic colonoscope was inserted into the rectum which was insufflated with air. The rectal mucosa and submucosal vascular pattern appeared normal, the prep was seen to be complete. The scope was advanced through the sigmoid colon, which contained at least one large diverticular opening. The scope was advanced up the descending colon, and around the splenic flexure where the triangular haustral architecture of the transverse colon was seen. The scope was advanced across the transverse colon, around the hepatic flexure to the cecum, where the confluence of tenia and the ileocecal valve were identified. The mucosa at this level appeared normal with exception of a 3 mm and adjacent 2 mm area of polypoid change on a cecal fold. The larger polyp was biopsied and then thoroughly destroyed with electrocautery. The site was seen to be complete and hemostatic. The adjacent polyp was simply destroyed in place with electrocautery. The site appeared complete and hemostatic. There was an additional similar appearing small polyp near the hepatic flexure. This was biopsied and then thoroughly destroyed with electrocautery. The site was seen to be complete hemostatic.. The scope was then slowly withdrawn in a circular fashion so that all aspects of colonic mucosa were inspected. The colon was normal in course and caliber. The haustral architecture appeared well preserved throughout with no evidence of external compression. The mucosa and submucosal vascular pattern appeared normal, specifically there was no gross evidence to suggest colitis or inflammatory bowel disease and no AV malformations were seen. Only several diverticula were identified. No additional polyps were encountered. The scope was gradually withdrawn to the level of the rectum. As much insufflated air as possible was removed. The scope was withdrawn from the patient and the procedure terminated. The patient tolerated the anesthetic and procedure well without complication and was transferred back to the ambulatory surgery area awake and in stable condition. The patient remained stable throughout a period of postoperative observation. She denied abdominal discomfort, was able to tolerate by mouth intake, and was up without assistance. I shared the operative findings with the patient and she was given copies of the photographs which appear in the medical record. She was given a single dose of Protonix 40 mg IV prior to discharge. She was discharged home with instructions not to engage in hazardous activity today, but may resume normal activity tomorrow, and advance diet as tolerated. She is to continue those medications as listed in the history and physical exam. I made arrangements to contact her with the biopsy reports and will make additional recommendations for treatment and follow-up based upon those results. Reviewed and electronically signed
== END 2017-03-14 11:06 | disposition home or self-care (01) ==
LOC: AMB 11:05
PROVIDERS: ATTEND Surgery
PROC: 0DBK8ZX Excision of Ascending Colon, Via Natural or Artificial Opening Endoscopic, Diagnostic (ICD-10-PCS; 2017-03-14)
PROC: 0DB68ZX Excision of Stomach, Via Natural or Artificial Opening Endoscopic, Diagnostic (ICD-10-PCS; principal; 2017-03-14 14:35)
PROC: 0DBH8ZX Excision of Cecum, Via Natural or Artificial Opening Endoscopic, Diagnostic (ICD-10-PCS; 2017-03-14 14:35)
DX: Z12.11 Encounter for screening for malignant neoplasm of colon (principal); K29.70 Gastritis, unspecified, without bleeding; K44.9 Diaphragmatic hernia without obstruction or gangrene; D12.0 Benign neoplasm of cecum; D12.2 Benign neoplasm of ascending colon; K57.30 Diverticulosis of large intestine without perforation or abscess without bleeding; K21.9 Gastro-esophageal reflux disease without esophagitis; I10 Essential (primary) hypertension; J44.9 Chronic obstructive pulmonary disease, unspecified; M19.90 Unspecified osteoarthritis, unspecified site; Z87.891 Personal history of nicotine dependence; Z68.26 Body mass index [BMI] 26.0-26.9, adult

== ENCOUNTER 2019-11-06 22:20 | Inpatient (IN) ==
--- NOTE | 2019-11-06 22:41 | ERNOTE ---
Dyspnea - General Presenting Symptoms: shortness of breath Time Seen by Provider: 11/06/19 22:34 Source: patient Exam Limitations: no limitations - Immun/Allergies/Home Medications Immunizations: IMMUNIZATION HX Immunizations Up to Date Yes History of Influenza Vaccine Yes Hx Pneumococcal Vaccination Yes Allergies/Adverse Reactions: Allergies influenza virus vaccine ts [From Fluarix] Adverse Reaction (Mild, Verified 04/28/19 12:13) Other "white around eyes" Home Medications: HOME MEDICATIONS Calcium Carbonate [Tums] 300 mg PO PRN 02/28/17 [Last Taken Unknown] albuterol sulfate 90 mcg/actuation aerosol inhaler 2 puff IH Q6H PRN #18 g 06/12/18 [Last Taken Unknown] omeprazole 40 mg capsule,delayed release 40 mg PO DAILY #90 cap 11/30/18 [Last Taken Unknown] albuterol sulfate 2.5 mg IH QID #180 ml 12/14/18 [Last Taken Unknown] fluticasone 250 mcg-salmeterol 50 mcg/dose blistr powdr for inhalation 1 inh IH BID #60 ea 04/24/19 [Last Taken Unknown] amlodipine 10 mg tablet 10 mg PO DAILY #30 tab 11/05/19 [Last Taken Unknown] - History of Present Illness Narrative: Patient states she has been getting worse for about a week. 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 Absent: fever EYE: Absent: vision changes ENT: Absent: nose congestion, nasal drainage Respiratory: Present: See HPI, shortness of breath, cough, orthopnea, wheezing Cardiology: Present: chest pain, palpitations. Absent: edema Gastrointestinal/Abdominal: Absent: nausea, vomiting Genitourinary: Absent: dysuria Musculoskeletal: Absent: back pain, muscle pain Skin: Absent: rash Neurological: Absent: headache, dizziness/light-headedness Endocrine: Absent: excessive sweating, flushing Medical History (Last Reviewed 11/07/19 @ 00:26 by Rashi Colon DO) Osteoarthritis (Chronic) Onset Date: Unknown History of gastroesophageal reflux (GERD) (Chronic) Onset Date: Unknown Hypertension (Chronic) Onset Date: Unknown COPD (chronic obstructive pulmonary disease) (Chronic) Onset Date: Unknown Rib fractures Onset Date: Unknown closed Surgical History: Surgical History (Last Reviewed 11/07/19 @ 00:26 by Rashi Colon DO) H/O colonoscopy Onset Date: ~02/07/08 03/24/17; ' Yonny; hyperplastic polyp. Gwendolyn, tubular adenoma x2 recheck in 5 years H/O tubal ligation Onset Date: ~1969 open History of appendectomy Onset Date: ~1969 open History of cholecystectomy Onset Date: ~1969 open History of esophagogastroduodenoscopy (EGD) Onset Date: ~02/07/08 03/14/17 With Biopsy; ' Yonny mild reactive gastropathy, w esophageal dilation; Gwendolyn clotest negative, gastritis Family History: Family History (Last Reviewed 11/07/19 @ 00:27 by Rashi Colon DO) Brother Alive and well Sister Cancer Colon Sister Cancer Lung Father , age 54 CAD (coronary artery disease) CVA (cerebral vascular accident) Hypertension Mother , age 70 unknown causes Hypertension Sister , age 60 Diabetes bilateral leg amputation Social History: (Last Reviewed 11/07/19 @ 00:27 by Rashi Colon DO) Social History: adopted: No Marital status: / household members: none number of children: 4 current occupational status: retired Highest education level completed: 11th grade Service: No Tobacco: Smoking Status: Former smoker how long ago did patient quit smoking: age 56 Alcohol: alcohol intake: current alcohol intake frequency: holiday/special occasion Substance Use: substance use type: unknown Dietary Habits: caffeine: Yes Physical Exam - Physical Exam General Appearance: Present: wd/wn, alert, mild distress Head Exam: Present: normal inspection, no evidence of injury Ears, Nose, Throat: Present: normal ENT inspection Neck: Present: normal inspection, nontender, supple Respiratory: Present: lungs clear, accessory muscle use, expiration (prolonged), other - tachypnea Cardiovascular/Chest: Present: tachycardia Back Exam: Present: normal inspection, normal range of motion Extremity Exam: Present: normal inspection, normal range of motion, no edema Neurological Exam: Present: alert, oriented, normal mood/affect, no motor/sensory deficits Skin Exam: Present: normal color, warm/dry Lymphatic Exam: Present: no adenopathy Progress - Results and Orders Patient's Lab Results:: I have reviewed the patient's lab results. Results and Orders: Laboratory Tests 11/06/19 11/06/19 11/06/19 22:55 22:56 22:56 WBC 13.6 H Hgb 14.6 Hct 44.7 Plt Count 293 Neutrophils % 85.6 H pCO2 43.2 pO2 61.2 L HCO3 24.3 Total CO2 25.6 H Base Excess -1.1 ABG pH 7.37 ABG O2 Sat (Measured) 90.7 L Sodium 140 Potassium 3.6 Chloride 102 Carbon Dioxide 26.2 BUN 8 Creatinine 0.69 Random Glucose 170 H Lactic Acid, Venous Calcium 8.9 Total Bilirubin 0.3 AST 20 ALT 26 Alkaline Phosphatase 127 Troponin I Less than 0.017 B-Natriuretic Peptide 377 11/07/19 00:00 WBC Hgb Hct Plt Count Neutrophils % pCO2 pO2 HCO3 Total CO2 Base Excess ABG pH ABG O2 Sat (Measured) Sodium Potassium Chloride Carbon Dioxide BUN Creatinine Random Glucose Lactic Acid, Venous 0.6 Calcium Total Bilirubin AST ALT Alkaline Phosphatase Troponin I B-Natriuretic Peptide - Vital Signs Patient's Vital Signs:: I have reviewed the patient's vital signs. Vital Signs: Vital Signs 11/06/19 22:25 11/06/19 22:30 Temperature 37.2 C Pulse Rate 137 H 134 H Respiratory Rate 35 H 31 H Blood Pressure 191/100 H O2 Sat by Pulse Oximetry 98 96 - EKG EKG #1 EKG: supraventricular tachycardia, nonspecific ST T wave changes EKG read: Interp. by me - X-Ray X-Ray #1 X-Ray: chest Interpretation: Interp. by me X-ray Comments: Hyperinflation of COPD. No infiltrate or effusion noted. Heart size appears normal. - Progress/Reassessment Chief Complaint: Dyspnea Progress:: Improved Progress Note-Subjective: 11/07/19 02:[address] Ferro she agrees to admit the patient 11/07/19 02:44 I talked with the patient again, her respiratory rate is down to 20 she feels much better and clinically looks much better than upon presentation. O2 saturation running about 95-96% Departure Clinical Impression: Acute exacerbation of chronic obstructive pulmonary disease (COPD) - Departure Disposition: Still a patient Condition: Stable
[2019-11-06 23:06] LABS: Hematocrit 44.7 % (37.0-47.0); Hemoglobin 14.6 gm/dL (12.5-16.0); Mean Cell Volume 92.4 fl (78-100); Mean Corpuscular Hemoglobin 30.2 pg (27-31); Mean Corpuscular Hgb Conc 32.7 g/dl (32-36); Mean Platelet Volume 10.5 fl (8-12.5); Neutrophil # 11.6 K/mm3 (1.3-6.0); Neutrophil % 85.6 % (42-75.0); Platelet Count 293 K/mm3 (150-450); Red Blood Count 4.84 M/mm3 (4.2-5.4); Red Cell Distribution Width 12.9 % (11.5-14.0); White Blood Count 13.6 K/mm3 (4.0-10.5)
[2019-11-06 23:27] LABS: ALT 26 U/L (19-67); AST 20 U/L (0-48); Albumin * 3.8 gm/dl (3.4-5.0); Alkaline Phosphatase * 127 U/L (50-170); Anion Gap 15.4 mmol/L (6.8-13.8); BNP * 377 pg/mL (5-550); BUN/Creatinine Ratio 11.6 (9.0-21.6); Bilirubin, Total 0.3 mg/dL (0.0-1.1); Blood Urea Nitrogen 8 mg/dL (3-23); Ca. Corrected For Albumin 8.7 mg/dL (8.4-10.2); Calcium * 8.9 mg/dL (7.9-10.9); Carbon Dioxide 26.2 mmol/L (24-32.6); Chloride 102 mmol/L (97-106); Glucose * 170 mg/dL (70-110); Potassium 3.6 mmol/L (3.4-4.6); Sodium 140 mmol/L (132-142); Total Protein 8.1 gm/dL (6.2-8.2); Troponin I Less than 0.017 ng/mL (0.00-0.10)
[2019-11-07] MEDS ORDERED: METHYLPREDNISOLONE SOD SUCC/PF 125 MG/2 ML VIAL IV ONE (00:13)
[2019-11-07] MEDS ORDERED: cefTRIAXone SODIUM 1,000 MG/100 ML BAG IV ONE (02:36)
[2019-11-07] MEDS ORDERED: ALBUTEROL SULFATE 200 PUFF INHALER IH PRN (06:50)
[2019-11-07] MEDS ORDERED: OMEPRAZOLE 20 MG CAPSULE.SA PO SCH (07:00)
[2019-11-07] MEDS: ALBUTEROL SULFATE/IPRATROPIUM 3 ML NEBU IH PRN ×2 (07:06→20:59)
--- NOTE | 2019-11-07 07:48 | HP ---
Chief Complaint - Chief Complaint Date of Service: 11/07/19 Time of Service: 07:37 Chief Complaint: shortness of breath History of Present Illness: Patient with PMHx of COPD presented to the ED with shortness of breath. She was seen last week for this, and was given a zpack, but her shortness of breath worsened. She is coughing, but her cough is nonproductive. Denies chest pain or lower extremity swelling. She has been hospitalized for COPD exacerbation in the past. She occasionally uses oxygen at home. She also has some bilateral lower abdominal pain that has also been present for about a week. In the ED, she was given 125 mg solumedrol and a dose of rocephin. She had been getting a continuous breathing treatment by EMS, which was stopped for a heart rate of 120. She required the use of a mask while in the ED. At the time of my exam, she is not having increased work of breathing, but is still tachycardic. She reports being exhausted, as she was unable to sleep at all last night. Medical History (Last Reviewed 11/07/19 @ 04:19 by Alfredo Mckeon RN) Osteoarthritis (Chronic) Onset Date: Unknown History of gastroesophageal reflux (GERD) (Chronic) Onset Date: Unknown Hypertension (Chronic) Onset Date: Unknown COPD (chronic obstructive pulmonary disease) (Chronic) Onset Date: Unknown Rib fractures Onset Date: Unknown closed Surgical History: Surgical History (Last Reviewed 11/07/19 @ 04:19 by Alfredo Mckeon RN) H/O colonoscopy Onset Date: ~02/07/08 03/24/17; '08 Yonny; hyperplastic polyp. '17 Gwendolyn, tubular adenoma x2 rech crissy in 5 years H/O tubal ligation Onset Date: ~1969 open History of appendectomy Onset Date: ~1969 open History of cholecystectomy Onset Date: ~1969 open History of esophagogastroduodenoscopy (EGD) Onset Date: ~02/07/08 03/14/17 With Biopsy; '08 Yonny mild reactive gastropathy, w esophageal dilation; '17 Gwendolyn clotest negative, gastritis Family History: Family History (Last Reviewed 11/07/19 @ 04:19 by Alfredo Mckeon RN) Brother Alive and well Sister Cancer Colon Sister Cancer Lung Father , age 54 CAD (coronary artery disease) CVA (cerebral vascular accident) Hypertension Mother , age 70 unknown causes Hypertension Sister , age 60 Diabetes bilateral leg amputation Social History: (Last Reviewed 11/07/19 @ 04:19 by Alfredo Mckeon RN) Social History: adopted: No Marital status: / household members: none number of children: 4 current occupational status: retired Highest education level completed: 11th grade Service: No Tobacco: Smoking Status: Former smoker how long ago did patient quit smoking: age 56 Alcohol: alcohol intake: current alcohol intake frequency: holiday/special occasion Substance Use: substance use type: unknown Dietary Habits: caffeine: Yes Review Of Systems (GEN) - Review of Systems Generalized/Overall Review: Present: Fatigue Respiratory: Present: Cough, Shortness of Breath Cardiac: Absent: Chest Pain, Edema Abdominal: Present: Constipation. Absent: Nausea Genitourinary: Present: No Symptoms Reported Musculoskeletal: Present: No Symptoms Reported Neurological: Present: No Symptoms Reported Skin: Present: No Symptoms Reported Immunizations: IMMUNIZATION HX Immunizations Up to Date Yes History of Influenza Vaccine Yes Hx Pneumococcal Vaccination Yes Allergies/Adverse Reactions: Allergies Allergy/AdvReac Type Severity Reaction Status Date / Time influenza virus vaccine ts AdvReac Mild Other Verified 11/07/19 04:19 2012- [From Fluarix] Home Medications: HOME MEDICATIONS Calcium Carbonate [Tums] 300 mg PO PRN 02/28/17 [Last Taken Unknown] albuterol sulfate 90 mcg/actuation aerosol inhaler 2 puff IH Q6H PRN #18 g 06/12/18 [Last Taken Unknown] omeprazole 40 mg capsule,delayed release 40 mg PO DAILY #90 cap 11/30/18 [Last Taken Unknown] albuterol sulfate 2.5 mg IH QID #180 ml 12/14/18 [Last Taken Unknown] fluticasone 250 mcg-salmeterol 50 mcg/dose blistr powdr for inhalation 1 inh IH BID #60 ea 04/24/19 [Last Taken Unknown] amlodipine 10 mg tablet 10 mg PO DAILY #30 tab 11/05/19 [Last Taken Unknown] Exam - Exam Vital Signs: Vital Signs - Last Taken Temp 36.9 C 11/07/19 04:21 Pulse 120 H 11/07/19 04:21 Resp 26 H 11/07/19 04:21 BP 170/80 H 11/07/19 04:21 Pulse Ox 94 11/07/19 04:21 Constitutional: Present: Alert, Cooperative, No distress, Elderly Respiratory: Present: decreased breath sounds, other - wearing 3 L O2 via NC. Absent: rhonchi, wheezing Cardiovascular/Chest: Present: regular rate, rhythm, tachycardia Abdomen: Present: soft, nontender Extremity: Absent: lower extremity edema Neurologic: Present: normal mood/affect Diagnostic Studies: Abnormal Lab Results 11/06/19 11/06/19 11/06/19 Range/Units 22:55 22:55 22:56 WBC 13.6 H (4.0-10.5) K/mm3 Immature Gran % (Auto) 0.50 H (0.001-0.429) % Immature Gran # (Auto) 0.07 H (0.000-0.0310) K/mm3 Neutrophils % 85.6 H (42-75.0) % Lymphocytes % 7.0 L (20-51) % Neutrophils # 11.6 H (1.3-6.0) K/mm3 Lymphocytes # 0.95 L (1.5-3.5) k/mm3 D-Dimer 0.63 H (0.19-0.49) ug/mL pO2 61.2 L (83.0-108.0) mmHg Total CO2 25.6 H (19.0-24.0) mmol/L ABG O2 Sat (Measured) 90.7 L (94.0-98.0) % Anion Gap (6.8-13.8) mmol/L Random Glucose (70-110) mg/dL 11/06/19 Range/Units 22:56 WBC (4.0-10.5) K/mm3 Immature Gran % (Auto) (0.001-0.429) % Immature Gran # (Auto) (0.000-0.0310) K/mm3 Neutrophils % (42-75.0) % Lymphocytes % (20-51) % Neutrophils # (1.3-6.0) K/mm3 Lymphocytes # (1.5-3.5) k/mm3 D-Dimer (0.19-0.49) ug/mL pO2 (83.0-108.0) mmHg Total CO2 (19.0-24.0) mmol/L ABG O2 Sat (Measured) (94.0-98.0) % Anion Gap 15.4 H (6.8-13.8) mmol/L Random Glucose 170 H (70-110) mg/dL Laboratory Results WBC 13.6 K/mm3 (4.0-10.5) H 11/06/19 22:56 RBC 4.84 M/mm3 (4.2-5.4) 11/06/19 22:56 Hgb 14.6 gm/dL (12.5-16.0) 11/06/19 22:56 Hct 44.7 % (37.0-47.0) 11/06/19 22:56 MCV 92.4 fl (78-100) 11/06/19 22:56 MCH 30.2 pg (27-31) 11/06/19 22:56 MCHC 32.7 g/dl (32-36) 11/06/19 22:56 RDW 12.9 % (11.5-14.0) 11/06/19 22:56 Plt Count 293 K/mm3 (150-450) 11/06/19 22:56 MPV 10.5 fl (8-12.5) 11/06/19 22:56 Immature Gran % (Auto) 0.50 % (0.001-0.429) H 11/06/19 22:56 Immature Gran # (Auto) 0.07 K/mm3 (0.000-0.0310) H 11/06/19 22:56 Neutrophils % 85.6 % (42-75.0) H 11/06/19 22:56 Lymphocytes % 7.0 % (20-51) L 11/06/19 22:56 Monocytes % 4.7 % (0.0-9) 11/06/19 22:56 Eosinophils % 1.5 % (0.0-3.0) 11/06/19 22:56 Basophils % 0.7 % (0.0-1.0) 11/06/19 22:56 Nucleated RBC % 0.0 k/mm3 (0-1) 11/06/19 22:56 Neutrophils # 11.6 K/mm3 (1.3-6.0) H 11/06/19 22:56 Lymphocytes # 0.95 k/mm3 (1.5-3.5) L 11/06/19 22:56 Monocytes # 0.6 k/mm3 (0.0-1.0) 11/06/19 22:56 Eosinophils # 0.2 k/mm3 (0.0-0.7) 11/06/19 22:56 Absolute Basophils 0.1 k/mm3 (0.0-0.1) 11/06/19 22:56 D-Dimer 0.63 ug/mL (0.19-0.49) H 11/06/19 22:55 pCO2 43.2 mmHg (32.0-45.0) 11/06/19 22:55 pO2 61.2 mmHg (83.0-108.0) L 11/06/19 22:55 HCO3 24.3 mmol/L (21.0-28.0) 11/06/19 22:55 Total CO2 25.6 mmol/L (19.0-24.0) H 11/06/19 22:55 Base Excess -1.1 mmol/L (-2.0-3.0) 11/06/19 22:55 ABG pH 7.37 (7.35-7.45) 11/06/19 22:55 ABG O2 Sat (Measured) 90.7 % (94.0-98.0) L 11/06/19 22:55 Sodium 140 mmol/L (132-142) 11/06/19 22:56 Plasma Sodium 141 mmol/L (130-142) 11/06/19 22:56 Potassium 3.6 mmol/L (3.4-4.6) 11/06/19 22:56 Chloride 102 mmol/L (97-106) 11/06/19 22:56 Carbon Dioxide 26.2 mmol/L (24-32.6) 11/06/19 22:56 Anion Gap 15.4 mmol/L (6.8-13.8) H 11/06/19 22:56 BUN 8 mg/dL (3-23) 11/06/19 22:56 Creatinine 0.69 mg/dL (0.4-1.4) 11/06/19 22:56 Est GFR (Non-Af Amer) 88 mL/min (60-130) 11/06/19 22:56 BUN/Creatinine Ratio 11.6 (9.0-21.6) 11/06/19 22:56 Random Glucose 170 mg/dL (70-110) H 11/06/19 22:56 Lactic Acid, Venous 0.6 mmol/L (0.4-2.0) 11/07/19 00:00 Calcium 8.9 mg/dL (7.9-10.9) 11/06/19 22:56 Calcium Adj for Albumin 8.7 mg/dL (8.4-10.2) 11/06/19 22:56 Total Bilirubin 0.3 mg/dL (0.0-1.1) 11/06/19 22:56 AST 20 U/L (0-48) 11/06/19 22:56 ALT 26 U/L (19-67) 11/06/19 22:56 Alkaline Phosphatase 127 U/L (50-170) 11/06/19 22:56 Troponin I Less than 0.017 ng/mL (0.00-0.10) 11/06/19 22:56 B-Natriuretic Peptide 377 pg/mL (5-550) 11/06/19 22:56 Total Protein 8.1 gm/dL (6.2-8.2) 11/06/19 22:56 Albumin 3.8 gm/dl (3.4-5.0) 11/06/19 22:56 Assessment/Plan - Assessment/Plan (1) Acute exacerbation of chronic obstructive pulmonary disease (COPD) Assessment: Official read is pending on the CXR. Her WBC is mildly elevated at 13.6. Negative troponin. Will continue treating for COPD exacerbation. She was given rocephin early this morning, and will continue. Will also add doxycycline. She was given 125 mg solumedrol, and will continue 60 mg solumedrol q6h for now. Will likely decrease frequency, or perhaps change to po steroids tomorrow. Will continue duoneb treatments q4h prn. I suspect her tachycardia and inability to sleep is partially due to the steroid. Her respiratory rate was 20 during my exam, which was improved from previous. Will wean oxygen as tolerated, with oxygenation goal greater than 90%. Anticipate she will remain hospitalized for at least 2 midnights. Her D dimer was 0.63, and CTA of the chest was done, and initial read was negative for PE. Problem: Acute (2) Hypertension Assessment: BP is mildly elevated, and her home amlodipine was restarted this morning. Problem: Chronic
[2019-11-07] MEDS: METHYLPREDNISOLONE SOD SUCC/PF 40 MG/ML VIAL IV SCH ×3 (07:54→20:41)
[2019-11-07] MEDS: PANTOPRAZOLE SODIUM 40 MG TABLET.EC PO SCH (07:59)
[2019-11-07] MEDS: DOXYCYCLINE HYCLATE 100 MG in DEXTROSE 5 % IN WATER 100 ML IV SCH ×4 (08:00→20:44)
[2019-11-07] MEDS: FLUTICASONE PROPION/SALMETEROL 14 PUFF DISK.W.DEV IH SCH ×2 (08:46→20:45)
[2019-11-07] MEDS: amLODIPine BESYLATE 10 MG TABLET PO SCH (08:47)
[2019-11-07] MEDS: diphenhydrAMINE HCL 25 MG CAPSULE PO PRN (20:45)
[2019-11-08] MEDS: METHYLPREDNISOLONE SOD SUCC/PF 40 MG/ML VIAL IV SCH ×4 (02:11→19:16)
[2019-11-08] MEDS: PANTOPRAZOLE SODIUM 40 MG TABLET.EC PO SCH (06:58)
[2019-11-08] MEDS: ALBUTEROL SULFATE 2.5 MG/0.5 ML VIAL.NEB IH PRN (07:05)
[2019-11-08 07:57] LABS: Hematocrit 44.5 % (37.0-47.0); Hemoglobin 14.5 gm/dL (12.5-16.0); Mean Cell Volume 93.7 fl (78-100); Mean Corpuscular Hemoglobin 30.5 pg (27-31); Mean Corpuscular Hgb Conc 32.6 g/dl (32-36); Mean Platelet Volume 10.5 fl (8-12.5); Neutrophil # 9.2 K/mm3 (1.3-6.0); Platelet Count 291 K/mm3 (150-450); Red Blood Count 4.75 M/mm3 (4.2-5.4); Red Cell Distribution Width 13.1 % (11.5-14.0); White Blood Count 10.4 K/mm3 (4.0-10.5)
[2019-11-08 08:00] LABS: BUN/Creatinine Ratio 15.4 (9.0-21.6); Calcium * 9.4 mg/dL (7.9-10.9); Carbon Dioxide 28.8 mmol/L (24-32.6); Estimated Creat Clear 49.3; Potassium 3.8 mmol/L (3.4-4.6)
[2019-11-08] MEDS: DOXYCYCLINE HYCLATE 100 MG in DEXTROSE 5 % IN WATER 100 ML IV SCH ×2 (08:09)
--- NOTE | 2019-11-08 08:32 | PN ---
Subjective - Date and Time Seen Date: 11/08/19 Time: 08:24 Subjective Narrative: feels terrible but better since admission. afebrile. still SOB and needing O2. Objective - Review of Systems Generalized/Overall Review: Denies: Weakness, Chills, Fever EENTM: Denies: Blurred Vision Respiratory: Reports: Cough, Shortness of Breath, Wheezing Cardiac: Denies: Chest Pain, Edema, Palpitations Abdominal: Denies: Nausea, Vomiting - feels like but not continuing Musculoskeletal Complaints: Denies: Joint Pain, Back Pain Neurological: Denies: Headache Skin: Denies: Lesions, Rash Endocrine: Denies: Intolerance to Cold, Intolerance to Heat Misc: All systems neg except as marked - Vitals Vitals: Last Vital Signs Temp 37 C 11/08/19 06:29 Pulse 107 H 11/08/19 07:15 Resp 22 H 11/08/19 07:15 BP 152/73 H 11/08/19 06:29 Pulse Ox 97 11/08/19 07:05 - Abnormal Lab Findings Abnormal Lab Findings: Abnormal Lab Results 11/08/19 11/08/19 Range/Units 07:51 07:51 Neutrophils % 88.0 H (42-75.0) % Lymphocytes % 8.6 L (20-51) % Neutrophils # 9.2 H (1.3-6.0) K/mm3 Lymphocytes # 0.90 L (1.5-3.5) k/mm3 Anion Gap 14.0 H (6.8-13.8) mmol/L Random Glucose 164 H (70-110) mg/dL - Exam Constitutional: Present: Alert, Oriented x3, Cooperative ENT Exam: Present: hearing grossly normal Neck: Present: supple Respiratory: Present: decreased breath sounds, wheezing, No rales Cardiovascular/Chest: Present: regular rate, rhythm, no JVD, no murmur, tachycardia Abdomen: Present: Normal bowel sounds, soft, nontender, nondistended Extremity: Present: no calf tenderness, pedal edema Assessment/Plan Plan Narrative: Demi Mo is a 74-year-old white female admitted for increasing shortness of breath on 11/07/2018. Admitting impression was acute COPD exacerbation. She also had tachycardia and elevated blood pressure with her breathing treatments. She is on IV Solu-Medrol, DuoNeb every 4 hours, and IV antibiotics. We will change her breathing treatments to ipratropium nebulizer and Xopenex nebulizer. We will continue with her IV Rocephin and discontinue her doxycycline. The patient had Z-Harman and finished it on 11/06/2019 the night before her admission. We will do DVT prophylaxis. She says that she has oxygen at home but she rarely uses it the last time was 1 year ago. We will try to wean her off oxygen and discharge planning in the morning. - Problems/Diagnosis (1) Dyspnea Problem: Acute (2) Acute exacerbation of chronic obstructive pulmonary disease (COPD) Problem: Acute (3) COPD (chronic obstructive pulmonary disease) Problem: Chronic Qualifiers: COPD type: unspecified COPD Qualified Code(s): J44.9 - Chronic obstructive pulmonary disease, unspecified (4) History of gastroesophageal reflux (GERD) Problem: Chronic (5) Hypertension Problem: Chronic Qualifiers: Hypertension type: essential hypertension Qualified Code(s): I10 - Essential (primary) hypertension
[2019-11-08] MEDS: FLUTICASONE PROPION/SALMETEROL 14 PUFF DISK.W.DEV IH SCH ×2 (09:11→21:40)
[2019-11-08] MEDS: ENOXAPARIN SODIUM 40 MG/0.4 ML SYRG SC SCH (09:13)
[2019-11-08] MEDS: amLODIPine BESYLATE 10 MG TABLET PO SCH (09:14)
[2019-11-08] MEDS: IPRATROPIUM BROMIDE 0.5 MG/2.5 ML VIAL.NEB IH SCH ×4 (10:15→22:15)
[2019-11-08] MEDS: LEVALBUTEROL HCL 0.63 MG/3 ML AMPUL IH SCH ×4 (10:15→22:15)
[2019-11-08] MEDS: diphenhydrAMINE HCL 25 MG CAPSULE PO PRN (21:40)
[2019-11-09] MEDS: METHYLPREDNISOLONE SOD SUCC/PF 40 MG/ML VIAL IV SCH ×2 (01:22→07:04)
[2019-11-09] MEDS: IPRATROPIUM BROMIDE 0.5 MG/2.5 ML VIAL.NEB IH SCH ×2 (02:35→06:07)
[2019-11-09] MEDS: LEVALBUTEROL HCL 0.63 MG/3 ML AMPUL IH SCH ×2 (02:35→06:11)
[2019-11-09] MEDS: PANTOPRAZOLE SODIUM 40 MG TABLET.EC PO SCH (06:57)
[2019-11-09] MEDS ORDERED: LORazepam 0.5 MG TABLET PO PRN (08:26)
[2019-11-09] MEDS: amLODIPine BESYLATE 10 MG TABLET PO SCH (08:27)
[2019-11-09] MEDS: FLUTICASONE PROPION/SALMETEROL 14 PUFF DISK.W.DEV IH SCH ×2 (08:27→20:04)
[2019-11-09] MEDS: ENOXAPARIN SODIUM 40 MG/0.4 ML SYRG SC SCH (08:28)
[2019-11-09] MEDS: LOSARTAN POTASSIUM 50 MG TABLET PO SCH (10:16)
[2019-11-09] MEDS: ALBUTEROL SULFATE/IPRATROPIUM 3 ML NEBU IH SCH ×4 (11:18→22:00)
--- NOTE | 2019-11-09 11:42 | PN ---
Subjective - Date and Time Seen Date: 11/09/19 Time: 11:34 Subjective Narrative: patient says she still gets very SOB especially with exertion. she does admit to increased anxiety when she gets SOB. Objective - Review of Systems Generalized/Overall Review: Denies: Weakness, Chills, Fever EENTM: Denies: Blurred Vision Respiratory: Reports: Cough, Shortness of Breath, Wheezing Cardiac: Denies: Chest Pain, Edema, Palpitations Abdominal: Denies: Nausea, Vomiting Genitourinary Symptoms: Denies: Urgency, Frequency Musculoskeletal Complaints: Denies: Joint Pain, Back Pain Neurological: Reports: Anxiety. Denies: Headache Skin: Denies: Lesions, Rash Endocrine: Denies: Intolerance to Cold, Intolerance to Heat - Vitals Vitals: Last Vital Signs Temp 36.6 C 11/09/19 06:21 Pulse 97 11/09/19 11:18 Resp 24 H 11/09/19 11:18 BP 171/72 H 11/09/19 10:16 Pulse Ox 94 11/09/19 11:18 - Exam Constitutional: Present: Alert, Oriented x3, Cooperative ENT Exam: Present: hearing grossly normal Neck: Present: supple. Absent: lymphadenopathy (R), lymphadenopathy (L) Respiratory: Present: decreased breath sounds, wheezing - ocassional, No rales Abdomen: Present: Normal bowel sounds, soft, nontender, nondistended Extremity: Present: no calf tenderness, pedal edema Assessment/Plan Plan Narrative: Demi Stephenson a 74-year-old white female admitted last November 07 for acute COPD exacerbation and is on day 3 of IV Solu-Medrol, IV Rocephin, breathing treatment with ipratropium nebulizer and Xopenex nebulizer. She says she does not tolerate the Xopenex nebulizer. She continues to have elevated blood pressure although her tachycardia has significantly improved. We will change it back to DuoNeb nebulizer every 4 hours [id number]. She does admit to having some anxiety when she gets short of breath. We will start her on Lorazepam 0.5 mg p.o. twice daily as needed. We will defer her from starting her on some SSRI for generalized anxiety disorder as it can elevate her blood pressure further in the few first few weeks. We will add losartan 50 mg p.o. daily for her elevated blood pressure mostly systolic. She does feel like there is something blocking in her lung but is not able to cough it out. We will try her on Cornet incentive spirometry and add Mucinex twice daily. If not successful may co nsider acetylcysteine nebulizers. She does not feel like she can go home today as she is short of breath especially with exertion. We will sign out patient to on-call physician. - Problems/Diagnosis (1) Generalized anxiety disorder Problem: Acute (2) Dyspnea Problem: Acute (3) Acute exacerbation of chronic obstructive pulmonary disease (COPD) Problem: Acute (4) COPD (chronic obstructive pulmonary disease) Problem: Chronic Qualifiers: COPD type: unspecified COPD Qualified Code(s): J44.9 - Chronic obstructive pulmonary disease, unspecified (5) History of gastroesophageal reflux (GERD) Problem: Chronic (6) Hypertension Problem: Chronic Qualifiers: Hypertension type: essential hypertension Qualified Code(s): I10 - Essential (primary) hypertension
[2019-11-09] MEDS: predniSONE 20 MG TABLET PO SCH (15:41)
[2019-11-09] MEDS: ALBUTEROL SULFATE 2.5 MG/0.5 ML VIAL.NEB IH PRN (16:59)
[2019-11-10] MEDS: ALBUTEROL SULFATE/IPRATROPIUM 3 ML NEBU IH SCH ×7 (03:00→22:05)
[2019-11-10] MEDS: PANTOPRAZOLE SODIUM 40 MG TABLET.EC PO SCH (06:33)
[2019-11-10] MEDS: LOSARTAN POTASSIUM 50 MG TABLET PO SCH (08:24)
[2019-11-10] MEDS: predniSONE 20 MG TABLET PO SCH (08:24)
[2019-11-10] MEDS: amLODIPine BESYLATE 10 MG TABLET PO SCH (08:25)
[2019-11-10] MEDS: FLUTICASONE PROPION/SALMETEROL 14 PUFF DISK.W.DEV IH SCH ×2 (08:25→21:25)
[2019-11-10] MEDS: ENOXAPARIN SODIUM 40 MG/0.4 ML SYRG SC SCH (08:26)
[2019-11-10] MEDS ORDERED: ACETAMINOPHEN 325 MG TABLET PO PRN (09:53)
[2019-11-10] MEDS: ALBUTEROL SULFATE 2.5 MG/0.5 ML VIAL.NEB IH PRN (10:00)
[2019-11-10] MEDS: CEFDINIR 300 MG CAPSULE PO SCH ×2 (10:51→21:26)
--- NOTE | 2019-11-10 22:42 | PN ---
Subjective - Date and Time Seen Date: 11/10/19 Time: 09:30 Subjective Narrative: Demi reports feeling better today but still significantly short of breath when active. At rest her oxygen is 90% and above on room air. With ambulation today her oxygen dropped down to 70% with activity on room air and required 5lpm of oxygen to get it back to 88% and above. She was significantly short of breath with activity. No fever, chills, nausea, or vomiting. Objective - Vitals Vitals: Last Vital Signs Temp 36.4 C 11/10/19 21:30 Pulse 86 11/10/19 22:15 Resp 22 H 11/10/19 22:15 BP 121/63 11/10/19 21:30 Pulse Ox 90 L 11/10/19 22:05 - Exam Constitutional: Present: Alert, Oriented x3, Cooperative Respiratory: Present: wheezing Cardiovascular/Chest: Present: regular rate, rhythm, no murmur Abdomen: Present: Normal bowel sounds, soft, nontender, nondistended Skin Exam: Present: normal color, warm/dry, no cyanosis Assessment/Plan Plan Narrative: Demi is a 74 yo female with COPD exacerbation. She is improved and is feeling better, but she continues to have acute respiratory failure with hypoxia. She has been weaned off of oxygen at rest but drops to 70% on room air with ambulation and requires 5lpm of oxygen to get back to 88% or above. She is requiring too much oxygen to safely discharge to home and will continue treatment of COPD exacerbation with cefdinir, prednisone, scheduled nebulizers, mucinex, and cornet. Will continue to monitor for oxygen needs with ambulation. May need home O2 with activity if this does not improve completely, but will work to at least bring the oxygen needs down to a more appropriate range. - Problems/Diagnosis (1) Acute respiratory failure with hypoxia Problem: Acute (2) Acute exacerbation of chronic obstructive pulmonary disease (COPD) Problem: Acute
[2019-11-11] MEDS: ALBUTEROL SULFATE/IPRATROPIUM 3 ML NEBU IH SCH ×6 (02:04→23:05)
[2019-11-11] MEDS: PANTOPRAZOLE SODIUM 40 MG TABLET.EC PO SCH (06:38)
[2019-11-11] MEDS: ENOXAPARIN SODIUM 40 MG/0.4 ML SYRG SC SCH (10:35)
[2019-11-11] MEDS: predniSONE 20 MG TABLET PO SCH (10:35)
[2019-11-11] MEDS: FLUTICASONE PROPION/SALMETEROL 14 PUFF DISK.W.DEV IH SCH ×2 (10:35→21:23)
[2019-11-11] MEDS: CEFDINIR 300 MG CAPSULE PO SCH ×2 (10:35→21:24)
[2019-11-11] MEDS: LOSARTAN POTASSIUM 50 MG TABLET PO SCH (10:35)
[2019-11-11] MEDS: amLODIPine BESYLATE 10 MG TABLET PO SCH (10:36)
[2019-11-11] MEDS ORDERED: CALCIUM CARBONATE 500 MG TAB.CHEW PO PRN (10:45)
[2019-11-11] MEDS ORDERED: MAG HYDROX/ALUMINUM HYD/SIMETH 30 ML UDC PO ONE (13:13)
[2019-11-11] MEDS ORDERED: BELLADONNA ALKALOIDS/PHENOBARB ELIXIR PO ONE (13:13)
[2019-11-11] MEDS ORDERED: SUCRALFATE 1 G/10 ML UDC PO ONE (13:13)
[2019-11-11] MEDS ORDERED: LIDOCAINE HCL 20 ML UDC PO ONE (13:13)
--- NOTE | 2019-11-11 13:14 | PN ---
Subjective - Date and Time Seen Date: 11/11/19 Time: 13:14 Subjective Narrative: She reports breathing is improved. Still very short of breath with activity. Having heartburn with reflux. A little better with tums. Also hurts to push on her epigastric. Objective - Vitals Vitals: Last Vital Signs Temp 36.6 C 11/11/19 10:04 Pulse 90 11/11/19 10:36 Resp 22 H 11/11/19 10:11 BP 166/78 H 11/11/19 10:36 Pulse Ox 94 11/11/19 10:04 - Exam Constitutional: Present: Alert, Oriented x3, Cooperative ENT Exam: Present: hearing grossly normal Respiratory: Present: no respiratory distress, wheezing Cardiovascular/Chest: Present: regular rate, rhythm, no murmur Abdomen: Present: Normal bowel sounds, soft, nontender, nondistended Skin Exam: Present: normal color, warm/dry, no cyanosis Assessment/Plan Plan Narrative: COPDE improving gradually, she is feeling less short of breath with ambulation, Oxygen saturation is still dropping with activity. Having epigastric pain today. A little improved with tums. Will try GI cocktail. Will get chest xray to evaluate. Unable to discharge to home due to oxygen dropping with ambulation. May need home oxygen set up tomorrow or continue to improve and perhaps she wont need home oxygen. - Problems/Diagnosis (1) Acute respiratory failure with hypoxia Problem: Acute (2) Acute exacerbation of chronic obstructive pulmonary disease (COPD) Problem: Acute (3) Epigastric pain Problem: Acute
[2019-11-12] MEDS: ALBUTEROL SULFATE/IPRATROPIUM 3 ML NEBU IH SCH ×3 (03:08→11:19)
[2019-11-12] MEDS: PANTOPRAZOLE SODIUM 40 MG TABLET.EC PO SCH (07:33)
--- NOTE | 2019-11-12 08:23 | DS ---
(1) Generalized anxiety disorder Problem: Acute (2) Dyspnea Problem: Chronic Qualifiers: Dyspnea type: dyspnea on exertion Qualified Code(s): R06.09 - Other forms of dyspnea (3) Acute exacerbation of chronic obstructive pulmonary disease (COPD) Problem: Resolved (4) COPD (chronic obstructive pulmonary disease) Problem: Chronic Qualifiers: COPD type: unspecified COPD Qualified Code(s): J44.9 - Chronic obstructive pulmonary disease, unspecified (5) History of gastroesophageal reflux (GERD) Problem: Chronic (6) Hypertension Problem: Chronic Qualifiers: Hypertension type: essential hypertension Qualified Code(s): I10 - Essential (primary) hypertension Date of Discharge:: 11/12/19 Hospital Course: Demi Davidson is a 74-year-old white female with PMH of COPD, Hypertension,GERD who was admitted for increasing shortness of breath on 11/07/2018. Admitting impression was acute COPD exacerbation. She also had tachycardia and elevated blood pressure with her breathing treatments. She was put on IV Solu-Medrol, DuoNeb every 4 hours, and IV antibiotics. We tried changing her breathing treatments to ipratropium nebulizer and Xopenex nebulizer but she could not tolerate the Xopenex. We continued with her IV Rocephin and discontinued her doxycycline. The patient had Z-Harman and finished it on 11/06/2019 the night before her admission. We did DVT prophylaxis. She said that she has oxygen at home but she rarely uses it the last time was 1 year ago. We changed her to prednisone , Cefdinir. Her GERD flared up and Tums was added to her Protonix. She did not drop down to less than 88 % on her O2 when walking. She can cardiopulmonary rehab as out patient. She is stable to be discharged today. Procedures Performed: none Results and Findings: Lab Pending Results 11/06/19 22:55: pCO2 43.2, pO2 61.2 L, HCO3 24.3, Total CO2 25.6 H, Base Excess -1.1, ABG pH 7.37, ABG O2 Sat (Measured) 90.7 L 11/06/19 22:55: D-Dimer 0.63 H 11/06/19 22:56: WBC 13.6 H, RBC 4.84, Hgb 14.6, Hct 44.7, MCV 92.4, MCH 30.2, MCHC 32.7, RDW 12.9, Plt Count 293, MPV 10.5, Immature Gran % (Auto) 0.50 H, Immature Gran # (Auto) 0.07 H, Neutrophils % 85.6 H, Lymphocytes % 7.0 L, Monocytes % 4.7, Eosinophils % 1.5, Basophils % 0.7, Nucleated RBC % 0.0, Neutrophils # 11.6 H, Lymphocytes # 0.95 L, Monocytes # 0.6, Eosinophils # 0.2, Absolute Basophils 0.1 11/06/19 22:56: Sodium 140, Plasma Sodium 141, Potassium 3.6, Chloride 102, Carbon Dioxide 26.2, Anion Gap 15.4 H, BUN 8, Creatinine 0.69, Est GFR (Non-Af Amer) 88, BUN/Creatinine Ratio 11.6, Random Glucose 170 H, Calcium 8.9, Calcium Adj for Albumin 8.7, Total Bilirubin 0.3, AST 20, ALT 26, Alkaline Phosphatase 127, Troponin I Less than 0.017, B-Natriuretic Peptide 377, Total Protein 8.1, Albumin 3.8 11/07/19 00:00: Lactic Acid, Venous 0.6 11/08/19 07:51: WBC 10.4 D, RBC 4.75, Hgb 14.5, Hct 44.5, MCV 93.7, MCH 30.5, MCHC 32.6, RDW 13.1, Plt Count 291, MPV 10.5, Immature Gran % (Auto) 0.30, Immature Gran # (Auto) 0.03, Neutrophils % 88.0 H, Lymphocytes % 8.6 L, Monocytes % 2.9, Eosinophils % 0.0, Basophils % 0.2, Nucleated RBC % 0.0, Neutrophils # 9.2 H, Lymphocytes # 0.90 L, Monocytes # 0.3, Eosinophils # 0.0, Absolute Basophils 0.0 11/08/19 07:51: Sodium 141, Plasma Sodium 142, Potassium 3.8, Chloride 102, Carbon Dioxide 28.8, Anion Gap 14.0 H, BUN 12, Creatinine 0.78, Est GFR (Non-Af Amer) 77, BUN/Creatinine Ratio 15.4, Random Glucose 164 H, Calcium 9.4 Discharge Location: Home Disposition: Home self-care Condition: Stable Discharge Activity: Activity as tolerated Discharge Diet: Low salt, Other - bland Referrals: Pau Haywood MD [Primary Care Provider] - Problem Oriented Discharge Instructions to Patient/Family: Chronic Obstructive Pulmonary Disease Exacerbation, [id number] Additional Patient Instructions (free text): TCM please Prescriptions (Any new or edited meds): LORazepam [Ativan] 0.5 mg PO BID PRN #14 tab PRN Reason: Anxiety Transmission Status: Received by [facility] #[id number] Complete Home Medications List: Complete Home Medication List: Calcium Carbonate [Tums] 300 mg PO PRN 02/28/17 albuterol sulfate 90 mcg/actuation aerosol inhaler 2 puff IH Q6H PRN #18 g 06/12/18 omeprazole 40 mg capsule,delayed release 40 mg PO DAILY #90 cap 11/30/18 albuterol sulfate 2.5 mg IH QID #180 ml 12/14/18 fluticasone 250 mcg-salmeterol 50 mcg/dose blistr powdr for inhalation 1 inh IH BID #60 ea 04/24/19 amlodipine 10 mg tablet 10 mg PO DAILY #30 tab 11/05/19 LORazepam [Ativan] 0.5 mg PO BID PRN #14 tab 11/12/19 Amb Orders for Discharge: Pulmonary Rehab Outpatient Consult Time Frame: 1 Week, Facility: [facility], Location: Respiratory Therapy
[2019-11-12] MEDS: LOSARTAN POTASSIUM 50 MG TABLET PO SCH (09:15)
[2019-11-12] MEDS: predniSONE 20 MG TABLET PO SCH (09:15)
[2019-11-12] MEDS: CEFDINIR 300 MG CAPSULE PO SCH (09:15)
[2019-11-12] MEDS: FLUTICASONE PROPION/SALMETEROL 14 PUFF DISK.W.DEV IH SCH (09:15)
[2019-11-12] MEDS: ENOXAPARIN SODIUM 40 MG/0.4 ML SYRG SC SCH (09:16)
[2019-11-12] MEDS: amLODIPine BESYLATE 10 MG TABLET PO SCH (09:16)
[2019-11-12 12:56] VITALS: BP 141/49
== END 2019-11-12 13:48 | disposition home or self-care (01) | DRG 190 ==
LOC: ER 22:20 → MS 11-07 03:14
PROVIDERS: ADMIT Family Medicine; ATTEND Internal Medicine
DX: F41.1 Generalized anxiety disorder; Z87.19 Personal history of other diseases of the digestive system; J96.01 Acute respiratory failure with hypoxia; Z87.891 Personal history of nicotine dependence; K21.9 Gastro-esophageal reflux disease without esophagitis; I10 Essential (primary) hypertension; J44.1 Chronic obstructive pulmonary disease with (acute) exacerbation
CPT/HCPCS: 36415; 36600; 71010; 71020; 71045; 71046; 71275; 80048; 80053; 82803; 83519; 83605; 83880; 84484; 85025; 85379; 87040; 93005; 94640; 94760; 96365; 96375; 99285; Q9967

== ENCOUNTER 2020-09-15 04:42 | Inpatient (IN) ==
--- NOTE | 2020-09-15 05:13 | ERNOTE ---
Time Seen by Provider: 09/15/20 04:59 Stated Complaint: sob, cough Presenting Symptoms:: cough, other - shortness of breath Source: patient Exam Limitations: no limitations Immunizations: IMMUNIZATION HX Immunizations Up to Date Yes History of Influenza Vaccine No Hx Pneumococcal Vaccination Yes Allergies/Adverse Reactions: Allergies influenza virus vaccine ts [From Fluarix] Adverse Reaction (Mild, Verified 09/15/20 04:52) Other "white around eyes" Home Medications: HOME MEDICATIONS amlodipine 10 mg tablet 10 mg PO DAILY #30 tab 11/05/19 [Last Taken Unknown] Acetaminophen [Tylenol] 650 mg PO Q6H PRN #30 tab 11/12/19 [Last Taken Unknown] Albuterol Sulfate/Ipratropium [Duoneb 2.5-0.5MG/3ML Soln] 3 ml INHALATION BID #7 nebu 11/12/19 [Last Taken Unknown] albuterol sulfate 90 mcg/actuation aerosol inhaler 2 puff IH Q6H PRN #18 g 01/24 [Last Taken Unknown] omeprazole 40 mg capsule,delayed release 40 mg PO DAILY #90 cap 01/28/20 [Last Taken Unknown] albuterol sulfate 2.5 mg IH QID #180 ml 02/21/20 [Last Taken Unknown] budesonide-formoterol HFA 160 mcg-4.5 mcg/actuation aerosol inhaler 2 inh IH BID #0.1 g 03/10/20 [Last Taken Unknown] lorazepam 0.5 mg tablet 0.5 mg PO BID PRN #14 tab 06/06/20 [Last Taken Unknown] losartan 50 mg tablet 50 mg PO DAILY #30 tab 08/05/20 [Last Taken Unknown] - History of Present Ilness Narrative: Patient states that she usually uses 3 L of oxygen at night and can get by with 2 L of oxygen throughout the day. Yesterday she was more short of breath and had some clear sputum production and had to keep her oxygen on 3 L throughout the day. Throughout the night she has become more short of breath having more harsh cough. She states she was with her granddaughter this past Tuesday and Tuesday without masks and that her granddaughter tested positive for Covid on or Tuesday. Timing: getting worse Severity: moderate Frequency/Possible Cause: Reports: occasional episodes Modifying Factors - Improves: Reports: oxygen Modifying Factors - Worsens: Reports: activity, coughing Associated Symptoms: Reports: chest pain/soreness Review of Systems - Review of Systems Constitutional: Present: See HPI, fatigue EYE: Absent: vision changes ENT: Absent: nose congestion, nasal drainage Respiratory: Present: See HPI Cardiology: Present: See HPI. Absent: edema Gastrointestinal/Abdominal: Present: nausea. Absent: vomiting, abdominal pain Genitourinary: Absent: frequency, dysuria Musculoskeletal: Absent: back pain, muscle pain Skin: Absent: rash, lesions Neurological: Absent: headache, dizziness/light-headedness Endocrine: Absent: excessive sweating Hematologic/Lymphatic: Present: easy bruising, easy bleeding Medical History (Last Reviewed 09/15/20 @ 05:08 by Rashi Colon DO) Osteoarthritis (Chronic) Onset Date: Unknown History of gastroesophageal reflux (GERD) (Chronic) Onset Date: Unknown Hypertension (Chronic) Onset Date: Unknown COPD (chronic obstructive pulmonary disease) (Chronic) Onset Date: Unknown Rib fractures Onset Date: Unknown closed Surgical History: Surgical History (Last Reviewed 09/15/20 @ 05:08 by Rashi Colon DO) H/O colonoscopy Onset Date: ~02/07/08 03/24/17; '08 Yonny; hyperplastic polyp. '17 Gwendolyn, tubular adenoma x2 recheck in 5 years H/O tubal ligation Onset Date: ~1969 open History of appendectomy Onset Date: ~1969 open History of cholecystectomy Onset Date: ~1969 open History of esophagogastroduodenoscopy (EGD) Onset Date: ~02/07/08 03/14/17 With Biopsy; '08 Yonny mild reactive gastropathy, w esophageal dilation; '17 Gwendolyn clotest negative, gastritis Family History: Family History (Last Reviewed 09/15/20 @ 05:08 by Rashi Colon DO) Brother Alive and well Sister Cancer Colon Sister Cancer Lung Father , age 54 CAD (coronary artery disease) CVA (cerebral vascular accident) Hypertension Mother , age 70 unknown causes Hypertension Sister , age 60 Diabetes bilateral leg amputation Social History: (Last Reviewed 09/15/20 @ 05:08 by Rashi Colon DO) Social History: adopted: No Marital status: / household members: none number of children: 4 current occupational status: retired Highest education level completed: 11th grade Service: No Tobacco: Smoking Status: Former smoker how long ago did patient quit smoking: age 56 Alcohol: alcohol intake: current alcohol intake frequency: holiday/special occasion Substance Use: substance use type: unknown Dietary Habits: caffeine: Yes Physical Exam - Physical Exam General Appearance: Present: wd/wn, alert, mild distress Head Exam: Present: normal inspection, no evidence of injury Eye Exam: Normal inspection: bilateral Neck: Present: normal inspection, nontender, supple Respiratory: Present: no respiratory distress, no accessory muscle use, decreased breath sounds Cardiovascular/Chest: Present: no murmur, normal peripheral pulses, tachycardia Gastrointestinal/Abdominal: Present: normal bowel sounds, nontender, nondistended, soft Back Exam: Present: normal inspection, normal range of motion, no vertebral tenderness Extremity Exam: Present: normal inspection, normal range of motion, no edema Neurological Exam: Present: alert, oriented, normal mood/affect, no motor/sensory deficits Skin Exam: Present: normal color, warm/dry Lymphatic Exam: Present: no adenopathy Progress - Results and Orders Patient's Lab Results:: I have reviewed the patient's lab results. Results and Orders: Laboratory Tests 09/15/20 06:06 SARS-CoV-2 (PCR) Detected H Laboratory Tests 09/15/20 09/15/20 09/15/20 05:00 05:00 05:00 WBC 6.7 Hgb 13.1 Hct 40.8 Plt Count 218 D-Dimer 0.47 D Sodium 138 Potassium 3.4 Chloride 103 BUN 7 D Creatinine 0.78 Random Glucose 114 H Lactic Acid, Venous Calcium 8.9 Total Bilirubin 0.3 AST 18 ALT 14 L Alkaline Phosphatase 112 Troponin I Less than 0.017 09/15/20 05:00 WBC Hgb Hct Plt Count D-Dimer Sodium Potassium Chloride BUN Creatinine Random Glucose Lactic Acid, Venous 0.8 Calcium Total Bilirubin AST ALT Alkaline Phosphatase Troponin I - Vital Signs Patient's Vital Signs:: I have reviewed the patient's vital signs. Vital Signs: Vital Signs 09/15/20 04:46 Temperature 37.1 C Pulse Rate 99 Respiratory Rate 20 Blood Pressure 163/74 H O2 Sat by Pulse Oximetry 97 - EKG EKG #1 EKG: supraventricular tachycardia - Sinus tach, premature ventricular contraction, RBBB, unchanged from 06/23/2020 EKG read: Interp. by me EKG Comments: Nothing acute - X-Ray X-Ray #1 X-Ray: chest Interpretation: Interp. by me X-ray Comments: No infiltrate or effusion. Cardiac silhouette appears normal. No pneumothorax. - Progress/Reassessment Chief Complaint: Upper Respiratory Symptoms Progress Note-Subjective: 09/15/20 06:07 Nursing got the patient up to the commode which was at the bedside and patient's oxygen saturation dropped down to 88% despite 3 L of oxygen. 09/15/20 07:[address] Haywood he agrees to admit the patient for exacerbation of COPD with hypoxia and Covid-19 Departure Clinical Impression: COPD exacerbation, Hypoxia, COVID-19 - Departure Disposition: Still a patient Condition: Fair Referrals: Pau Haywood MD [Primary Care Provider] -
[2020-09-15 05:19] LABS: Hematocrit 40.8 % (37.0-47.0); Hemoglobin 13.1 gm/dL (12.5-16.0); Mean Cell Volume 94.4 fl (78-100); Mean Corpuscular Hemoglobin 30.3 pg (27-31); Mean Corpuscular Hgb Conc 32.1 g/dl (32-36); Mean Platelet Volume 10.6 fl (8-12.5); Neutrophil # 4.7 K/mm3 (1.3-6.0); Neutrophil % 69.3 % (42-75.0); Platelet Count 218 K/mm3 (150-450); Red Blood Count 4.32 M/mm3 (4.2-5.4); Red Cell Distribution Width 13.2 % (11.5-14.0); White Blood Count 6.7 K/mm3 (4.0-10.5)
[2020-09-15 05:37] LABS: Troponin I Less than 0.017 ng/mL (0.00-0.10)
[2020-09-15 05:38] LABS: ALT 14 U/L (19-67); AST 18 U/L (0-48); Albumin * 3.8 gm/dl (3.4-5.0); Alkaline Phosphatase * 112 U/L (50-170); Anion Gap 10.5 mmol/L (6.8-13.8); BNP * 188 pg/mL (5-550); Bilirubin, Total 0.3 mg/dL (0.0-1.1); Blood Urea Nitrogen 7 mg/dL (3-23); Ca. Corrected For Albumin 8.7 mg/dL (8.4-10.2); Calcium * 8.9 mg/dL (7.9-10.9); Carbon Dioxide 27.9 mmol/L (24-32.6); Chloride 103 mmol/L (97-106); Glucose * 114 mg/dL (70-110); Potassium 3.4 mmol/L (3.4-4.6); Sodium 138 mmol/L (132-142); Total Protein 7.6 gm/dL (6.2-8.2)
[2020-09-15] MEDS ORDERED: AZITHROMYCIN 500 MG in DEXTROSE 5 % IN WATER 250 ML IV ONE ×2 (09:04)
[2020-09-15] MEDS ORDERED: ALBUTEROL SULFATE 200 PUFF INHALER IH PRN (09:10)
[2020-09-15] MEDS: METHYLPREDNISOLONE SOD SUCC/PF 40 MG/ML VIAL IV SCH ×3 (10:40→20:48)
[2020-09-15] MEDS: IPRATROPIUM/ALBUTEROL SULFATE 120 PUFF INHALER IH SCH ×3 (10:40→20:48)
[2020-09-15] MEDS: LOSARTAN POTASSIUM 50 MG TABLET PO SCH (10:41)
[2020-09-15] MEDS: PANTOPRAZOLE SODIUM 40 MG TABLET.EC PO SCH (10:42)
[2020-09-15] MEDS: amLODIPine BESYLATE 10 MG TABLET PO SCH (10:42)
--- NOTE | 2020-09-15 12:10 | HP ---
Chief Complaint - Chief Complaint Date of Service: 09/15/20 Time of Service: 12:09 Chief Complaint: shortness of breath History of Present Illness: Demi Mo is a 75-year-old white female with past medical history of COPD, generalized anxiety disorder, gastroesophageal reflux disease, osteoarthritis, who was admitted on 09/15/2020 because of increasing shortness of breath. The patient was with her granddaughter on Tuesday and Tuesday when she started getting to be sick and she tested positive for for Covid 19. 1 day prior to admission the patient started getting short of breath associated with wheezing and coughing productive of whitish phlegm. She did not have any fever or chills. She is on home oxygen and had to up her oxygen by 1 L to keep up with her breathing. She was getting more short of breath this morning and so she went to emergency room. She was found to have a normal WBC count of 6.7, hemoglobin of 13.1, low lymphocyte, normal D-dimer at 0.47, electrolytes to be within normal limits, creatinine of 0.78 with a GFR of 76, random blood sugar 114, liver function test within normal limits except for slightly low ALT of 14, BNP of 188 and a positive SARS-CoV-2. Her chest x-ray showed no acute cardio pulmonary findings. Her oxygen saturation dropped down to 88% when she went to the commode and was visibly short of breath but quickly recovered when she went back to the bed and 3 L of nasal cannula. She was then admitted for acute COPD exacerbation with a positive Covid 19 test. Medical History (Last Reviewed 09/15/20 @ 09:59 by Rut Clements RN) Osteoarthritis (Chronic) Onset Date: Unknown History of gastroesophageal reflux (GERD) (Chronic) Onset Date: Unknown Hypertension (Chronic) Onset Date: Unknown COPD (chronic obstructive pulmonary disease) (Chronic) Onset Date: Unknown Rib fractures Onset Date: Unknown closed Surgical History: Surgical History (Last Reviewed 09/15/20 @ 09:59 by Rut Clements RN) H/O colonoscopy Onset Date: ~02/07/08 03/24/17; '08 Michasley; hyperplastic polyp. ' B[place], tubular adenoma x2 recheck in 5 years H/O tubal ligation Onset Date: ~1969 open History of appendectomy Onset Date: ~1969 open History of cholecystectomy Onset Date: ~1969 open History of esophagogastroduodenoscopy (EGD) Onset Date: ~02/07/08 03/14/17 With Biopsy; Yonny mild reactive gastropathy, w esophageal dilation; Valentinasophia clotest negative, gastritis Family History: Family History (Last Updated 09/15/20 @ 10:01 by Rut Clements RN) Brother Alive and well Sister Cancer lung Sister Diabetes Father , age 54 CAD (coronary artery disease) Hypertension CVA (cerebral vascular accident) Mother , age 70 unknown causes Hypertension Sister , age 60 No problems noted. Social History: (Last Reviewed 09/15/20 @ 10:01 by Rut Clements RN) Social History: adopted: No Marital status: / household members: none number of children: 4 current occupational status: retired Highest education level completed: 11th grade Service: No Tobacco: Smoking Status: Former smoker how long ago did patient quit smoking: age 56 Alcohol: alcohol intake: current alcohol intake frequency: holiday/special occasion Substance Use: substance use type: unknown Dietary Habits: caffeine: Yes Review Of Systems (GEN) - Review of Systems Generalized/Overall Review: Absent: Chills, Fever EENTM: Absent: Blurred Vision Respiratory: Present: Cough, Shortness of Breath, Wheezing Cardiac: Absent: Chest Pain, Edema, Palpitations Abdominal: Absent: Nausea, Vomiting Genitourinary: Absent: Urgency, Frequency Musculoskeletal: Present: Joint Pain Neurological: Present: Anxiety Skin: Absent: Lesions, Rash Misc: All systems neg except as marked Immunizations: IMMUNIZATION HX Immunizations Up to Date Yes History of Influenza Vaccine No Hx Pneumococcal Vaccination Yes Allergies/Adverse Reactions: Allergies Allergy/AdvReac Type Severity Reaction Status Date / Time influenza virus vaccine ts AdvReac Mild Other Verified 09/15/20 04:52 [From Fluarix] Home Medications: HOME MEDICATIONS amlodipine 10 mg tablet 10 mg PO DAILY #30 tab 11/05/19 [Last Taken Unknown] Acetaminophen [Tylenol] 650 mg PO Q6H PRN #30 tab 11/12/19 [Last Taken Unknown] Albuterol Sulfate/Ipratropium [Duoneb 2.5-0.5MG/3ML Soln] 3 ml INHALATION BID #7 nebu 11/12/19 [Last Taken Unknown] albuterol sulfate 90 mcg/actuation aerosol inhaler 2 puff IH Q6H PRN #18 g 12/10/19 [Last Taken Unknown] omeprazole 40 mg capsule,delayed release 40 mg PO DAILY #90 cap 01/28/20 [Last Taken Unknown] albuterol sulfate 2.5 mg IH QID #180 ml 02/21/20 [Last Taken Unknown] budesonide-formoterol HFA 160 mcg-4.5 mcg/actuation aerosol inhaler 2 inh IH BID #0.1 g 03/10/20 [Last Taken Unknown] lorazepam 0.5 mg tablet 0.5 mg PO BID PRN #14 tab 06/06/20 [Last Taken Unknown] losartan 50 mg tablet 50 mg PO DAILY #30 tab 08/05/20 [Last Taken Unknown] Exam - Exam Vital Signs: Vital Signs - Last Taken Temp 37.3 C 09/15/20 08:50 Pulse 95 09/15/20 10:42 Resp 20 09/15/20 08:50 BP 166/79 H 09/15/20 10:42 Pulse Ox 99 09/15/20 08:50 Constitutional: Present: Alert, Oriented x3, Cooperative, Elderly ENT Exam: Present: hearing grossly normal Eye Exam: bilateral eye: normal inspection, PERRL, EOMI Neck: Present: supple. Absent: lymphadenopathy (R), lymphadenopathy (L) Respiratory: Present: decreased breath sounds, wheezing - Occasional, No rales Cardiovascular/Chest: Present: regular rate, rhythm, no JVD, no murmur Abdomen: Present: Normal bowel sounds, soft, nontender, nondistended Extremity: Present: no pedal edema, no calf tenderness Diagnostic Studies: Abnormal Lab Results 09/15/20 09/15/20 09/15/20 Range/Units 05:00 05:00 06:06 Lymphocytes % 15.3 L (20-51) % Monocytes % 11.4 H (0.0-9) % Lymphocytes # 1.03 L (1.5-3.5) k/mm3 Random Glucose 114 H (70-110) mg/dL ALT 14 L (19-67) U/L SARS-CoV-2 (PCR) Detected H (NotDetected) Laboratory Results WBC 6.7 K/mm3 (4.0-10.5) 09/15/20 05:00 RBC 4.32 M/mm3 (4.2-5.4) 09/15/20 05:00 Hgb 13.1 gm/dL (12.5-16.0) 09/15/20 05:00 Hct 40.8 % (37.0-47.0) 09/15/20 05:00 MCV 94.4 fl (78-100) 09/15/20 05:00 MCH 30.3 pg (27-31) 09/15/20 05:00 MCHC 32.1 g/dl (32-36) 09/15/20 05:00 RDW 13.2 % (11.5-14.0) 09/15/20 05:00 Plt Count 218 K/mm3 (150-450) 09/15/20 05:00 MPV 10.6 fl (8-12.5) 09/15/20 05:00 Immature Gran % (Auto) 0.30 % (0.001-0.429) 09/15/20 05:00 Immature Gran # (Auto) 0.02 K/mm3 (0.000-0.0310) 09/15/20 05:00 Neutrophils % 69.3 % (42-75.0) 09/15/20 05:00 Lymphocytes % 15.3 % (20-51) L 09/15/20 05:00 Monocytes % 11.4 % (0.0-9) H 09/15/20 05:00 Eosinophils % 2.8 % (0.0-3.0) 09/15/20 05:00 Basophils % 0.9 % (0.0-1.0) 09/15/20 05:00 Nucleated RBC % 0.0 k/mm3 (0-1) 09/15/20 05:00 Neutrophils # 4.7 K/mm3 (1.3-6.0) 09/15/20 05:00 Lymphocytes # 1.03 k/mm3 (1.5-3.5) L 09/15/20 05:00 Monocytes # 0.8 k/mm3 (0.0-1.0) 09/15/20 05:00 Eosinophils # 0.2 k/mm3 (0.0-0.7) 09/15/20 05:00 Absolute Basophils 0.1 k/mm3 (0.0-0.1) 09/15/20 05:00 D-Dimer 0.47 ug/mL (0.19-0.49) D 09/15/20 05:00 Sodium 138 mmol/L (132-142) 09/15/20 05:00 Plasma Sodium 138 mmol/L (130-142) 09/15/20 05:00 Potassium 3.4 mmol/L (3.4-4.6) 09/15/20 05:00 Chloride 103 mmol/L (97-106) 09/15/20 05:00 Carbon Dioxide 27.9 mmol/L (24-32.6) 09/15/20 05:00 Anion Gap 10.5 mmol/L (6.8-13.8) 09/15/20 05:00 BUN 7 mg/dL (3-23) D 09/15/20 05:00 Creatinine 0.78 mg/dL (0.4-1.4) 09/15/20 05:00 Est GFR (Non-Af Amer) 76 mL/min (60-130) 09/15/20 05:00 BUN/Creatinine Ratio 9.0 (9.0-21.6) 09/15/20 05:00 Random Glucose 114 mg/dL (70-110) H 09/15/20 05:00 Lactic Acid, Venous 0.8 mmol/L (0.4-2.0) 09/15/20 05:00 Calcium 8.9 mg/dL (7.9-10.9) 09/15/20 05:00 Calcium Adj for Albumin 8.7 mg/dL (8.4-10.2) 09/15/20 05:00 Total Bilirubin 0.3 mg/dL (0.0-1.1) 09/15/20 05:00 AST 18 U/L (0-48) 09/15/20 05:00 ALT 14 U/L (19-67) L 09/15/20 05:00 Alkaline Phosphatase 112 U/L (50-170) 09/15/20 05:00 Troponin I Less than 0.017 ng/mL (0.00-0.10) 09/15/20 05:00 B-Natriuretic Peptide 188 pg/mL (5-550) 09/15/20 05:00 Total Protein 7.6 gm/dL (6.2-8.2) 09/15/20 05:00 Albumin 3.8 gm/dl (3.4-5.0) 09/15/20 05:00 SARS-CoV-2 (PCR) Detected (NotDetected) H 09/15/20 06:06 Assessment/Plan - Narrative Narrative: Demi was admitted for increasing shortness of breath with the impression of acute COPD exacerbation likely due to acute bronchitis and COVID-19. Her chest x-ray showed no pneumonia and her white blood cell/neutrophil count is not elevated but her lymphocyte is on the low side which we expect with COVID-19. We will start her on IV antibiotics for COPD exacerbation and IV Solu-Medrol with breathing treatments via [facility]. We will continue her oxygen at least 3 L per nasal cannula to keep O2 saturation above 92% and progressed up with low flow oxygen. If her oxygen continues to desaturate we will get an ABG and progressed to high flow nasal cannula up to our max of 15L. This is her second day of signs and symptoms of her Covid and if they do not improve consider starting remdesivir. We will review CDC guidelines again as studies from World Health Organization did not show it to be effective however CDC has appropriated it for emergency use but recently made it also routine for Covid treatment. - Assessment/Plan (1) Hypoxia Problem: Acute (2) COPD exacerbation Problem: Acute (3) COVID-19 Problem: Acute (4) Generalized anxiety disorder Problem: Chronic (5) GERD (gastroesophageal reflux disease) Problem: Chronic Qualifiers: Esophagitis presence: esophagitis presence not specified Qualified Code(s): K21.9 - Gastro-esophageal reflux disease without esophagitis (6) Osteoarthritis Problem: Chronic Qualifiers: Osteoarthritis location: unspecified site Osteoarthritis type: primary Qualified Code(s): M19.91 - Primary osteoarthritis, unspecified site (7) Hypertension Problem: Chronic Qualifiers: Hypertension type: essential hypertension Qualified Code(s): I10 - Essential (primary) hypertension
[2020-09-16] MEDS: METHYLPREDNISOLONE SOD SUCC/PF 40 MG/ML VIAL IV SCH ×4 (02:26→21:37)
[2020-09-16] MEDS: IPRATROPIUM/ALBUTEROL SULFATE 120 PUFF INHALER IH SCH ×4 (02:26→21:37)
[2020-09-16] MEDS: PANTOPRAZOLE SODIUM 40 MG TABLET.EC PO SCH (06:39)
[2020-09-16 06:49] LABS: Hematocrit 44.2 % (37.0-47.0); Hemoglobin 14.1 gm/dL (12.5-16.0); Mean Cell Volume 93.6 fl (78-100); Mean Corpuscular Hemoglobin 29.9 pg (27-31); Mean Corpuscular Hgb Conc 31.9 g/dl (32-36); Mean Platelet Volume 11.1 fl (8-12.5); Neutrophil # 5.8 K/mm3 (1.3-6.0); Neutrophil % 88.3 % (42-75.0); Platelet Count 236 K/mm3 (150-450); Red Blood Count 4.72 M/mm3 (4.2-5.4); Red Cell Distribution Width 13.1 % (11.5-14.0); White Blood Count 6.6 K/mm3 (4.0-10.5)
[2020-09-16 06:56] LABS: Anion Gap 12.8 mmol/L (6.8-13.8); BUN/Creatinine Ratio 16.9 (9.0-21.6); Calcium * 9.5 mg/dL (7.9-10.9); Carbon Dioxide 27.1 mmol/L (24-32.6); Estimated Creat Clear 50.9; Potassium 3.9 mmol/L (3.4-4.6)
--- NOTE | 2020-09-16 08:40 | PN ---
Subjective - Date and Time Seen Date: 09/16/20 Time: 08:35 Subjective Narrative: feerls better but still complaining of cough nonproductive. afebrile. Objective - Review of Systems Generalized/Overall Review: Denies: Chills, Fever EENTM: Denies: Blurred Vision Respiratory: Reports: Cough, Shortness of Breath, Wheezing - not as much Cardiac: Denies: Chest Pain, Edema, Palpitations Abdominal: Denies: Nausea, Vomiting, Diarrhea Genitourinary Symptoms: Denies: Urgency, Frequency Musculoskeletal Complaints: Denies: Joint Pain Neurological: Denies: Headache Misc: All systems neg except as marked - Vitals Vitals: Last Vital Signs Temp 36.8 C 09/16/20 07:00 Pulse 69 09/16/20 07:00 Resp 18 09/16/20 07:00 BP 139/75 09/16/20 07:00 Pulse Ox 97 09/16/20 07:00 - Abnormal Lab Findings Abnormal Lab Findings: Abnormal Lab Results 09/16/20 09/16/20 Range/Units 06:30 06:30 MCHC 31.9 L (32-36) g/dl Immature Gran % (Auto) 0.50 H (0.001-0.429) % Neutrophils % 88.3 H (42-75.0) % Lymphocytes % 9.6 L (20-51) % Lymphocytes # 0.63 L (1.5-3.5) k/mm3 Random Glucose 146 H (70-110) mg/dL - Exam Constitutional: Present: Alert, Oriented x3, Cooperative ENT Exam: Present: hearing grossly normal Neck: Present: supple. Absent: lymphadenopathy (R), lymphadenopathy (L) Respiratory: Present: decreased breath sounds, wheezing - rare, No rales Cardiovascular/Chest: Present: regular rate, rhythm, no JVD, no murmur Abdomen: Present: Normal bowel sounds, soft, nontender, nondistended Extremity: Present: no pedal edema, no calf tenderness Assessment/Plan Plan Narrative: Demi is HD # 2 with ACOPDE and COVID 19 positive. She is clinically better. She is oxygenation at her baseline 97% at 2 LNC. Will continue with present management and current medications. Will add mucinex and put her on DVT prophylaxis. - Problems/Diagnosis (1) Hypoxia Problem: Acute (2) COPD exacerbation Problem: Acute (3) COVID-19 Problem: Acute (4) Generalized anxiety disorder Problem: Chronic (5) GERD (gastroesophageal reflux disease) Problem: Chronic Qualifiers: Esophagitis presence: esophagitis presence not specified Qualified Code(s): K21.9 - Gastro-esophageal reflux disease without esophagitis (6) Osteoarthritis Problem: Chronic Qualifiers: Osteoarthritis location: unspecified site Osteoarthritis type: primary Qualified Code(s): M19.91 - Primary osteoarthritis, unspecified site (7) Hypertension Problem: Chronic Qualifiers: Hypertension type: essential hypertension Qualified Code(s): I10 - Essential (primary) hypertension
[2020-09-16] MEDS: ENOXAPARIN SODIUM 40 MG/0.4 ML SYRG SC SCH (09:17)
[2020-09-16] MEDS: amLODIPine BESYLATE 10 MG TABLET PO SCH (09:18)
[2020-09-16] MEDS: LOSARTAN POTASSIUM 50 MG TABLET PO SCH (09:21)
[2020-09-16] MEDS: ACETAMINOPHEN 325 MG TABLET PO PRN (09:22)
[2020-09-17] MEDS: IPRATROPIUM/ALBUTEROL SULFATE 120 PUFF INHALER IH SCH ×4 (02:47→22:22)
[2020-09-17] MEDS: METHYLPREDNISOLONE SOD SUCC/PF 40 MG/ML VIAL IV SCH ×2 (02:47→09:20)
[2020-09-17] MEDS: PANTOPRAZOLE SODIUM 40 MG TABLET.EC PO SCH (06:55)
[2020-09-17] MEDS ORDERED: MAGNESIUM HYDROXIDE 30 ML UDC PO PRN (08:53)
[2020-09-17] MEDS: LOSARTAN POTASSIUM 50 MG TABLET PO SCH (09:18)
[2020-09-17] MEDS: ENOXAPARIN SODIUM 40 MG/0.4 ML SYRG SC SCH (09:19)
[2020-09-17] MEDS: amLODIPine BESYLATE 10 MG TABLET PO SCH (09:19)
--- NOTE | 2020-09-17 12:10 | PN ---
Subjective - Date and Time Seen Date: 09/17/20 Time: 12:07 Subjective Narrative: Patient's chief complaint is she gets nausea after her meal. She is on her third hospital day. Afebrile. Objective - Review of Systems Generalized/Overall Review: Denies: Weakness, Chills, Fever EENTM: Denies: Blurred Vision Respiratory: Reports: Cough, Shortness of Breath. Denies: Wheezing Cardiac: Denies: Chest Pain, Edema, Palpitations Abdominal: Reports: Nausea. Denies: Vomiting, Abdominal Pain Genitourinary Symptoms: Denies: Urgency, Frequency Musculoskeletal Complaints: Denies: Joint Pain Neurological: Denies: Headache Skin: Denies: Lesions, Rash Misc: All systems neg except as marked - Vitals Vitals: Last Vital Signs Temp 37.1 C 09/17/20 10:55 Pulse 94 09/17/20 10:55 Resp 17 09/17/20 10:55 BP 134/72 09/17/20 10:55 Pulse Ox 94 09/17/20 10:55 - Exam Constitutional: Present: Alert, Oriented x3, Cooperative, Elderly ENT Exam: Present: hearing grossly normal Neck: Present: supple. Absent: lymphadenopathy (R), lymphadenopathy (L) Respiratory: Present: decreased breath sounds, No rales, No wheezing Cardiovascular/Chest: Present: regular rate, rhythm, no JVD, no murmur Abdomen: Present: Normal bowel sounds, soft, nontender, nondistended Extremity: Present: no calf tenderness, pedal edema Assessment/Plan Plan Narrative: Demi is on her third hospital day for acute COPD exacerbation and positive COVID-19. She has been afebrile. She is back to her baseline oxygen saturatio n. I told her that I was planning to possibly discharge her today however the laboratory called and said that she is growing gram-positive cocci in clusters in one of the bottles. We will await for the final report. The patient was told that it could be just a contaminant however if it turns out to be a significant bacteremia even though it is only in 1 bottle due to her immune no deficiency we will need to treat it with IV antibiotics. Continue current medications and present management but will change her IV Solu-Medrol now to prednisone. - Problems/Diagnosis (1) Hypoxia Problem: Acute (2) COPD exacerbation Problem: Acute (3) COVID-19 Problem: Acute (4) Generalized anxiety disorder Problem: Chronic (5) GERD (gastroesophageal reflux disease) Problem: Chronic Qualifiers: Esophagitis presence: esophagitis presence not specified Qualified Code(s): K21.9 - Gastro-esophageal reflux disease without esophagitis (6) Osteoarthritis Problem: Chronic Qualifiers: Osteoarthritis location: unspecified site Osteoarthritis type: primary Qualified Code(s): M19.91 - Primary osteoarthritis, unspecified site (7) Hypertension Problem: Chronic Qualifiers: Hypertension type: essential hypertension Qualified Code(s): I10 - Essential (primary) hypertension
[2020-09-17] MEDS: SENNOSIDES/DOCUSATE SODIUM 1 TAB TABLET PO SCH (22:23)
[2020-09-18] MEDS: IPRATROPIUM/ALBUTEROL SULFATE 120 PUFF INHALER IH SCH ×4 (03:54→20:22)
[2020-09-18 06:56] LABS: Hematocrit 43.8 % (37.0-47.0); Hemoglobin 13.6 gm/dL (12.5-16.0); Mean Cell Volume 95.4 fl (78-100); Mean Corpuscular Hemoglobin 29.6 pg (27-31); Mean Corpuscular Hgb Conc 31.1 g/dl (32-36); Mean Platelet Volume 10.6 fl (8-12.5); Neutrophil # 14.5 K/mm3 (1.3-6.0); Neutrophil % 81.2 % (42-75.0); Platelet Count 242 K/mm3 (150-450); Red Blood Count 4.59 M/mm3 (4.2-5.4); Red Cell Distribution Width 13.3 % (11.5-14.0); White Blood Count 17.9 K/mm3 (4.0-10.5)
[2020-09-18 07:22] LABS: Anion Gap 10.9 mmol/L (6.8-13.8); Carbon Dioxide 28.9 mmol/L (24-32.6); Estimated Creat Clear 56.4; Potassium 3.8 mmol/L (3.4-4.6)
[2020-09-18] MEDS: PANTOPRAZOLE SODIUM 40 MG TABLET.EC PO SCH (07:30)
[2020-09-18] MEDS: ENOXAPARIN SODIUM 40 MG/0.4 ML SYRG SC SCH (08:56)
[2020-09-18] MEDS: predniSONE 20 MG TABLET PO SCH (08:57)
--- NOTE | 2020-09-18 09:05 | PN ---
Progess Note - Interim Date: 09/18/20 Time: 09:02 Narrative: 09/18/20 09:02 patient afebrile. O2 back to baseline. WBC is elevated but still likely due to steroids. BC grew G+ cocci in clusters yesterdfay in which is reported this morning as Staph species coagulase negative therefore suspicious for contaminant. Still possible discharge today if we can get final report later this afternoon.
[2020-09-18] MEDS: LOSARTAN POTASSIUM 50 MG TABLET PO SCH (09:20)
[2020-09-18] MEDS: amLODIPine BESYLATE 10 MG TABLET PO SCH (09:20)
--- NOTE | 2020-09-18 14:07 | PN ---
Subjective - Date and Time Seen Date: 09/18/20 Time: 14:06 Subjective Narrative: patient afebrile. O2 back to baseline. Objective - Review of Systems Generalized/Overall Review: Denies: Chills, Fever EENTM: Denies: Blurred Vision Respiratory: Reports: Cough, Shortness of Breath. Denies: Wheezing Cardiac: Denies: Chest Pain, Edema, Palpitations Abdominal: Reports: Nausea. Denies: Vomiting, Abdominal Pain Genitourinary Symptoms: Denies: Burning, Urgency, Frequency Neurological: Denies: Headache Skin: Denies: Lesions, Rash Misc: All systems neg except as marked - Vitals Vitals: Last Vital Signs Temp 37.1 C 09/18/20 11:00 Pulse 78 09/18/20 11:00 Resp 18 09/18/20 11:00 BP 147/62 09/18/20 11:00 Pulse Ox 96 09/18/20 11:00 - Abnormal Lab Findings Abnormal Lab Findings: Abnormal Lab Results 09/18/20 09/18/20 Range/Units 06:30 06:30 WBC 17.9 H D (4.0-10.5) K/mm3 MCHC 31.1 L (32-36) g/dl Immature Gran # (Auto) 0.07 H (0.000-0.0310) K/mm3 Neutrophils % 81.2 H (42-75.0) % Lymphocytes % 11.9 L (20-51) % Neutrophils # 14.5 H (1.3-6.0) K/mm3 Monocytes # 1.2 H (0.0-1.0) k/mm3 BUN/Creatinine Ratio 25.0 H (9.0-21.6) - Exam Constitutional: Present: Alert, Oriented x3, Cooperative, Elderly ENT Exam: Present: hearing grossly normal Neck: Present: supple. Absent: lymphadenopathy (R), lymphadenopathy (L) Respiratory: Present: decreased breath sounds, No rales, No wheezing Cardiovascular/Chest: Present: regular rate, rhythm, no JVD, no murmur Abdomen: Present: Normal bowel sounds, soft, nontender, nondistended Extremity: Present: no pedal edema, no calf tenderness Assessment/Plan Plan Narrative: Demi is doing better. Her oxygen saturation is back to her baseline. She has been afebrile. WBC is elevated but still likely due to steroids. BC grew G+ cocci in clusters yesterdfay in /2 which is reported this morning as Staph species coagulase negative therefore suspicious for contaminant. Still possible discharge today if we can get final report later this afternoon. Addendum: 2:09 PM, I talked to laboratory and they said that they will not be having the final reading until tomorrow salesperson meats. Told the nurse to tell the patient that most likely will discharge her tomorrow when we get the final result. - Problems/Diagnosis (1) Hypoxia Problem: Resolved (2) COPD exacerbation Problem: Acute (3) Chronic respiratory failure with hypoxia Problem: Chronic (4) COVID-19 Problem: Acute (5) Generalized anxiety disorder Problem: Chronic (6) GERD (gastroesophageal reflux disease) Problem: Chronic Qualifiers: Esophagitis presence: esophagitis presence not specified Qualified Code(s): K21.9 - Gastro-esophageal reflux disease without esophagitis (7) Osteoarthritis Problem: Chronic Qualifiers: Osteoarthritis location: unspecified site Osteoarthritis type: primary Qualified Code(s): M19.91 - Primary osteoarthritis, unspecified site (8) Hypertension Problem: Chronic Qualifiers: Hypertension type: essential hypertension Qualified Code(s): I10 - Essential (primary) hypertension
[2020-09-18] MEDS: SENNOSIDES/DOCUSATE SODIUM 1 TAB TABLET PO SCH (20:19)
[2020-09-19] MEDS: ONDANSETRON HCL/PF 2 MG/ML VIAL IV PRN (02:31)
[2020-09-19] MEDS: IPRATROPIUM/ALBUTEROL SULFATE 120 PUFF INHALER IH SCH ×4 (02:40→20:51)
[2020-09-19] MEDS: PANTOPRAZOLE SODIUM 40 MG TABLET.EC PO SCH (07:11)
[2020-09-19 07:57] LABS: Hematocrit 43.3 % (37.0-47.0); Hemoglobin 13.6 gm/dL (12.5-16.0); Mean Cell Volume 95.4 fl (78-100); Mean Corpuscular Hgb Conc 31.4 g/dl (32-36); Mean Platelet Volume 10.4 fl (8-12.5); Neutrophil # 9.8 K/mm3 (1.3-6.0); Neutrophil % 82.6 % (42-75.0); Platelet Count 232 K/mm3 (150-450); Red Blood Count 4.54 M/mm3 (4.2-5.4); Red Cell Distribution Width 13.3 % (11.5-14.0); White Blood Count 11.9 K/mm3 (4.0-10.5)
[2020-09-19 08:05] LABS: Amylase * 75 U/L (25-115); Lipase 86 U/L (73-393)
[2020-09-19] MEDS: ENOXAPARIN SODIUM 40 MG/0.4 ML SYRG SC SCH (08:48)
[2020-09-19] MEDS: LOSARTAN POTASSIUM 50 MG TABLET PO SCH (08:48)
[2020-09-19] MEDS: predniSONE 20 MG TABLET PO SCH (08:49)
[2020-09-19] MEDS: ACETAMINOPHEN 325 MG TABLET PO PRN (08:49)
[2020-09-19] MEDS: amLODIPine BESYLATE 10 MG TABLET PO SCH (08:49)
--- NOTE | 2020-09-19 09:28 | PN ---
Kae Note - Interim Date: 09/19/20 Time: : Narrative: 09/19/20 09:25 The patient is back to her baseline oxygen requirements however the patient does not want to go home as she had the worse night of her stay complaining of abdominal pain and not being able to sleep. Her nausea was worse last night. Her abdominal pain is mostly lower abdominal area. She does not feel like she can go home today. I did an amylase lipase which was normal. We will get a urinalysis and urine culture and sensitivity if warranted. We will get a flat and upright abdominal film. We will give her milk of magnesia 30 mL x 1. Laboratory will not have the final reading of her blood culture until around 1130 this morning.
[2020-09-19 09:47] LABS: Albumin * 3.7 gm/dl (3.4-5.0); Bilirubin Direct 0.1 mg/dL (0.0-0.3); Bilirubin, Total 0.3 mg/dL (0.0-1.1); Bilirubin,Indirect 0.2 mg/dL (0.1-0.7); Total Protein 7.1 gm/dL (6.2-8.2)
[2020-09-19 09:52] LABS: Urine Bilirubin Negative (NEGATIVE); Urine Blood Negative /ul (NEGATIVE); Urine Ketone Negative (NEGATIVE); Urine Nitrite Negative (NEGATIVE); Urine Protein Negative (NEGATIVE); Urine Specific Gravity 1.015 SP.GR. (1.005-1.010); Urine Urobilinogen Normal (NORMAL)
[2020-09-19 10:04] LABS: Urine Appearance Clear (CLEAR); Urine Bacteria 1+; Urine Color Yellow; Urine RBC TRACE /hpf (0-5); Urine WBC 0-5 /hpf (0-5)
[2020-09-19] MEDS ORDERED: BISACODYL 10 MG SUPP.RECT RC ONE (11:32)
--- NOTE | 2020-09-19 14:08 | PN ---
Subjective - Date and Time Seen Date: 09/19/20 Time: 14:03 Subjective Narrative: patient c/o of lower abdominal pain and nausea. her final report of her blood culture is not until tomorrow morning. Objective - Review of Systems Generalized/Overall Review: Denies: Weakness, Chills, Fever EENTM: Denies: Blurred Vision Respiratory: Reports: Cough, Shortness of Breath. Denies: Wheezing Cardiac: Denies: Chest Pain, Edema, Palpitations Abdominal: Reports: Nausea, Abdominal Pain. Denies: Vomiting Genitourinary Symptoms: Denies: Urgency, Frequency Musculoskeletal Complaints: Denies: Joint Pain Neurological: Reports: Headache Skin: Denies: Lesions, Rash Misc: All systems neg except as marked - Vitals Vitals: Last Vital Signs Temp 37.4 C 09/19/20 10:00 Pulse 99 09/19/20 10:00 Resp 22 H 09/19/20 10:00 BP 130/61 09/19/20 10:00 Pulse Ox 94 09/19/20 10:00 - Abnormal Lab Findings Abnormal Lab Findings: Abnormal Lab Results 09/19/20 09/19/20 Range/Units 07:49 09:45 WBC 11.9 H D (4.0-10.5) K/mm3 MCHC 31.4 L (32-36) g/dl Immature Gran # (Auto) 0.04 H (0.000-0.0310) K/mm3 Neutrophils % 82.6 H (42-75.0) % Lymphocytes % 10.1 L (20-51) % Neutrophils # 9.8 H (1.3-6.0) K/mm3 Lymphocytes # 1.20 L (1.5-3.5) k/mm3 Urine Bacteria 1+ H (NONE) - Exam Constitutional: Present: Alert, Oriented x3, Cooperative ENT Exam: Present: hearing grossly normal Neck: Present: supple. Absent: lymphadenopathy (R), lymphadenopathy (L) Respiratory: Present: No rales, No wheezing. Absent: decreased breath sounds Cardiovascular/Chest: Present: no gallop, no JVD, no murmur. Absent: regular rate, rhythm Abdomen: Present: Normal bowel sounds, soft, nondistended, other - slightly tender lower abdomen Extremity: Present: no pedal edema, no calf tenderness Assessment/Plan Plan Narrative: Demi was admitted for acute COPD exacerbation with COVID 19 URI. Her CXR did not show pneumonia. She is back to her baseline usual home O2 requirements but her BC grew staph species x 1 bottle and final reading is going to be tomorrow. Her discharge for today was cancelled beacuse of this and she also complained of abdomonal pain with nausea. We added lipase/amylase/LFT to her labs which were normal . We did a UA which showed no UTI. We did AXr which showed no obstruction, mild diffuse stool retention. We gave MOM and Dulcolax suppository. She has not had BM yet but says her abdominal pain is gone. Will add Miralax. For discharge tomorrow once BC reading shpows contaminant on Azithromycin and Prednisone x 5 days more. She will need to be isolated for 10 days after symptom onset and fever free for at least 24 hours without fever reducing medications. - Problems/Diagnosis (1) Hypoxia Problem: Resolved (2) COPD exacerbation Problem: Resolved (3) Chronic respiratory failure with hypoxia Problem: Chronic (4) COVID-19 Problem: Acute (5) Generalized anxiety disorder Problem: Chronic (6) GERD (gastroesophageal reflux disease) Problem: Chronic Qualifiers: Esophagitis presence: esophagitis presence not specified Qualified Code(s): K21.9 - Gastro-esophageal reflux disease without esophagitis (7) Osteoarthritis Problem: Chronic Qualifiers: Osteoarthritis location: unspecified site Osteoarthritis type: primary Qualified Code(s): M19.91 - Primary osteoarthritis, unspecified site (8) Hypertension Problem: Chronic Qualifiers: Hypertension type: essential hypertension Qualified Code(s): I10 - Essential (primary) hypertension (9) Positive blood culture Problem: Acute Narrative: x 1 bottle (10) Abdominal pain Problem: Resolved
[2020-09-19] MEDS: SENNOSIDES/DOCUSATE SODIUM 1 TAB TABLET PO SCH (20:51)
[2020-09-20] MEDS: IPRATROPIUM/ALBUTEROL SULFATE 120 PUFF INHALER IH SCH ×4 (03:19→20:49)
[2020-09-20] MEDS: PANTOPRAZOLE SODIUM 40 MG TABLET.EC PO SCH (08:22)
[2020-09-20] MEDS: POLYETHYLENE GLYCOL 3350 17 GM PACKET PO SCH (08:22)
[2020-09-20] MEDS: ENOXAPARIN SODIUM 40 MG/0.4 ML SYRG SC SCH (08:22)
[2020-09-20] MEDS: LOSARTAN POTASSIUM 50 MG TABLET PO SCH (08:22)
[2020-09-20] MEDS: amLODIPine BESYLATE 10 MG TABLET PO SCH (08:22)
[2020-09-20] MEDS: predniSONE 20 MG TABLET PO SCH (08:23)
[2020-09-20] MEDS: AZITHROMYCIN 250 MG TABLET PO SCH (08:23)
[2020-09-20] MEDS: ONDANSETRON HCL/PF 2 MG/ML VIAL IV PRN (09:09)
[2020-09-20] MEDS: LORazepam 0.5 MG TABLET PO PRN (10:01)
--- NOTE | 2020-09-20 13:59 | PN ---
Subjective - Date and Time Seen Date: 09/20/20 Time: 11:00 Subjective Narrative: Demi duarte is a 75-year-old female patient of Dr. Haywood admitted for Covid pneumonia and hypoxemia. She felt pretty good this morning but is feeling tired and with malaise about noon. She is in no distress at the time of my exam and currently is on 2 L nasal cannula O2. She is complaining of some nausea and thinks it might be the guaifenesin. It will may be I will hold that medicine to see if it makes a difference with her nausea. She is currently being treated with steroids. We are still waiting on final reading of cultures. Objective - Review of Systems Generalized/Overall Review: Reports: No Symptoms Reported, Weakness, Malaise EENTM: Reports: No Symptoms Reported Respiratory: Reports: Cough, Shortness of Breath - But improved. Cardiac: Reports: No Symptoms Reported Abdominal: Reports: No Symptoms Reported Genitourinary Symptoms: Reports: No Symptoms Reported Musculoskeletal Complaints: Reports: No Symptoms Reported Neurological: Reports: No Symptoms Reported Skin: Reports: No Symptoms Reported Endocrine: Reports: No Symptoms Reported - Vitals Vitals: Last Vital Signs Temp 37.5 C 09/20/20 10:06 Pulse 101 H 09/20/20 10:06 Resp 24 H 09/20/20 10:06 BP 128/52 09/20/20 10:06 Pulse Ox 91 L 09/20/20 10:06 - Exam Constitutional: Present: Alert, Oriented x3, Cooperative, Well developed, Well nourished, No distress ENT Exam: Present: normal ENT inspection, hearing grossly normal, pharynx normal Neck: Present: non-tender, supple, normal inspection, trachea midline, limited range of motion Breasts: Present: Exam deferred Respiratory: Present: chest non-tender, crackles, wheezing Cardiovascular/Chest: Present: normal peripheral pulses, regular rate, rhythm, no chest tenderness, no edema, no gallop, no JVD, no murmur, no rub Abdomen: Present: Normal bowel sounds, soft, nontender, nondistended, no rebound tenderness, no hepatospenomegaly, no masses /Rectal: Present: Exam deferred Extremity: Present: normal range of motion, non-tender, normal inspection, no pedal edema, no calf tenderness, normal capillary refill Skin Exam: Present: normal color, warm/dry, no cyanosis Lymphatic: Present: no adenopathy Neurologic: Present: fruit trimmer II-XII nml as tested, no motor/sensory deficits, alert, normal mood/affect, oriented x 3 Appearance: Present: appropriate appearance, appropriate insight, neat, no memory impairment Eye contact: Present: cooperative, good eye contact, normal speech Thoughts: Present: normal thought pattern, no apparent hallucination Assessment/Plan Plan Narrative: 1. She is getting close to discharge. They culture has grown out staph hominis which is usually a contaminant. She has not had a repeat chest x-ray since the so I will do that in the morning. If she is doing well tomorrow morning and the chest x-ray is okay then I will dismiss her to home to finish self quarantining with oral medicines. - Problems/Diagnosis (1) Acute respiratory failure with hypoxia Problem: Acute (2) Hypoxia Problem: Resolved (3) COVID-19 Problem: Acute (4) Chronic respiratory failure with hypoxia Problem: Chronic (5) Positive blood culture Problem: Acute (6) COPD with exacerbation Problem: Acute
[2020-09-20] MEDS: SENNOSIDES/DOCUSATE SODIUM 1 TAB TABLET PO SCH (20:49)
[2020-09-21] MEDS: IPRATROPIUM/ALBUTEROL SULFATE 120 PUFF INHALER IH SCH ×3 (02:22→16:02)
[2020-09-21] MEDS: PANTOPRAZOLE SODIUM 40 MG TABLET.EC PO SCH (07:29)
[2020-09-21] MEDS: AZITHROMYCIN 250 MG TABLET PO SCH (08:59)
[2020-09-21] MEDS: LORazepam 0.5 MG TABLET PO PRN (08:59)
[2020-09-21] MEDS: amLODIPine BESYLATE 10 MG TABLET PO SCH (09:00)
[2020-09-21] MEDS: predniSONE 20 MG TABLET PO SCH (09:00)
[2020-09-21] MEDS: ENOXAPARIN SODIUM 40 MG/0.4 ML SYRG SC SCH (09:00)
[2020-09-21] MEDS: POLYETHYLENE GLYCOL 3350 17 GM PACKET PO SCH (09:00)
[2020-09-21] MEDS: LOSARTAN POTASSIUM 50 MG TABLET PO SCH (09:00)
[2020-09-21 11:06] LABS: Hematocrit 38.1 % (37.0-47.0); Hemoglobin 12.1 gm/dL (12.5-16.0); Mean Cell Volume 94.8 fl (78-100); Mean Corpuscular Hemoglobin 30.1 pg (27-31); Mean Corpuscular Hgb Conc 31.8 g/dl (32-36); Mean Platelet Volume 10.6 fl (8-12.5); Neutrophil # 10.8 K/mm3 (1.3-6.0); Neutrophil % 90.9 % (42-75.0); Platelet Count 170 K/mm3 (150-450); Red Blood Count 4.02 M/mm3 (4.2-5.4); Red Cell Distribution Width 13.1 % (11.5-14.0); White Blood Count 11.8 K/mm3 (4.0-10.5)
[2020-09-21 11:20] LABS: Albumin * 2.9 gm/dl (3.4-5.0); Anion Gap 10.6 mmol/L (6.8-13.8); BUN/Creatinine Ratio 17.1 (9.0-21.6); Bilirubin, Total 0.3 mg/dL (0.0-1.1); Ca. Corrected For Albumin 9.2 mg/dL (8.4-10.2); Calcium * 8.6 mg/dL (7.9-10.9); Carbon Dioxide 31.4 mmol/L (24-32.6); Total Protein 6.6 gm/dL (6.2-8.2)
--- NOTE | 2020-09-21 14:45 | DS ---
(1) Acute respiratory failure with hypoxia Problem: Acute (2) Hypoxia Problem: Resolved (3) COVID-19 Problem: Acute (4) Chronic respiratory failure with hypoxia Problem: Chronic (5) Positive blood culture Problem: Acute (6) COPD with exacerbation Problem: Acute Date of Discharge:: 09/21/20 Hospital Course: This 75-year-old female patient was admitted to [facility] last week with diagnosis of COVID-19 infection with acute exacerbation of COPD. Initially hypoxic she has returned to baseline. She uses oxygen at home periodically and usually is on 2 L nasal cannula which is where she is at at this time. Her vital signs this morning are stable and she is afebrile. The oxygen saturations 94% on 2 L nasal cannula. The chest x-ray shows COPD but no pneumonia. She is a patient of Dr. Haywood I had wanted to wait until he came tomorrow to discuss post hospital plans but he is not going to be rounding tomorrow and I have advised her that she can be discharged. Her disposition is improved and her prognosis is good. Procedures Performed: none Results and Findings: Lab Pending Results 09/15/20 05:00: WBC 6.7, RBC 4.32, Hgb 13.1, Hct 40.8, MCV 94.4, MCH 30.3, MCHC 32.1, RDW 13.2, Plt Count 218, MPV 10.6, Immature Gran % (Auto) 0.30, Immature Gran # (Auto) 0.02, Neutrophils % 69.3, Lymphocytes % 15.3 L, Monocytes % 11.4 H, Eosinophils % 2.8, Basophils % 0.9, Nucleated RBC % 0.0, Neutrophils # 4.7, Lymphocytes # 1.03 L, Monocytes # 0.8, Eosinophils # 0.2, Absolute Basophils 0.1 09/15/20 05:00: Sodium 138, Plasma Sodium 138, Potassium 3.4, Chloride 103, Carbon Dioxide 27.9, Anion Gap 10.5, BUN 7 D, Creatinine 0.78, Est GFR (Non-Af Amer) 76, BUN/Creatinine Ratio 9.0, Random Glucose 114 H, Calcium 8.9, Calcium Adj for Albumin 8.7, Total Bilirubin 0.3, AST 18, ALT 14 L, Alkaline Phosphatase 112, Troponin I Less than 0.017, B-Natriuretic Peptide 188, Total Protein 7.6, Albumin 3.8 09/15/20 05:00: D-Dimer 0.47 D 09/15/20 05:00: Lactic Acid, Venous 0.8 09/15/20 06:06: SARS-CoV-2 (PCR) Detected H 09/15/20 14:30: Influenza Type A Ag Negative, Influenza Type B Ag Negative 09/16/20 06:30: WBC 6.6, RBC 4.72, Hgb 14.1, Hct 44.2, MCV 93.6, MCH 29.9, MCHC 31.9 L, RDW 13.1, Plt Count 236, MPV 11.1, Immature Gran % (Auto) 0.50 H, Immat ure Gran # (Auto) 0.03, Neutrophils % 88.3 H, Lymphocytes % 9.6 L, Monocytes % 1.4, Eosinophils % 0.0, Basophils % 0.2, Nucleated RBC % 0.0, Neutrophils # 5.8, Lymphocytes # 0.63 L, Monocytes # 0.1, Eosinophils # 0.0, Absolute Basophils 0.0 09/16/20 06:30: Sodium 139, Plasma Sodium 140, Potassium 3.9, Chloride 103, Carbon Dioxide 27.1, Anion Gap 12.8, BUN 12 D, Creatinine 0.71, Est GFR (Non-Af Amer) 85, BUN/Creatinine Ratio 16.9, Random Glucose 146 H, Calcium 9.5 09/18/20 06:30: WBC 17.9 H D, RBC 4.59, Hgb 13.6, Hct 43.8, MCV 95.4, MCH 29.6, MCHC 31.1 L, RDW 13.3, Plt Count 242, MPV 10.6, Immature Gran % (Auto) 0.40, Immature Gran # (Auto) 0.07 H, Neutrophils % 81.2 H, Lymphocytes % 11.9 L, Monocytes % 6.4, Eosinophils % 0.0, Basophils % 0.1, Nucleated RBC % 0.0, Neutrophils # 14.5 H, Lymphocytes # 2.13, Monocytes # 1.2 H, Eosinophils # 0.0, Absolute Basophils 0.0 09/18/20 06:30: Sodium 139, Plasma Sodium 139, Potassium 3.8, Chloride 103, Carbon Dioxide 28.9, Anion Gap 10.9, BUN 16, Creatinine 0.64, Est GFR (Non-Af Amer) 96, BUN/Creatinine Ratio 25.0 H, Random Glucose 82 D, Calcium 9.0 09/19/20 07:49: WBC 11.9 H D, RBC 4.54, Hgb 13.6, Hct 43.3, MCV 95.4, MCH 30.0, MCHC 31.4 L, RDW 13.3, Plt Count 232, MPV 10.4, Immature Gran % (Auto) 0.30, Immature Gran # (Auto) 0.04 H, Neutrophils % 82.6 H, Lymphocytes % 10.1 L, Monocytes % 6.7, Eosinophils % 0.2, Basophils % 0.1, Nucleated RBC % 0.0, Neutrophils # 9.8 H, Lymphocytes # 1.20 L, Monocytes # 0.8, Eosinophils # 0.0, Absolute Basophils 0.0 09/19/20 07:49: Amylase 75, Lipase 86 09/19/20 07:49: Total Bilirubin 0.3, Direct Bilirubin 0.1, Indirect Bilirubin 0.2, AST 16, ALT 24, Alkaline Phosphatase 89, Total Protein 7.1, Albumin 3.7 09/19/20 09:45: Urine Color Yellow, Urine Appearance Clear, Urine pH 6.0, Ur Specific Wrights 1.015, Urine Protein Negative, Urine Glucose (UA) Negative, Urine Ketones Negative, Urine Blood Negative, Urine Nitrate Negative, Urine Bilirubin Negative, Urine Urobilinogen Normal, Ur Leukocyte Esterase Negative, Urine RBC Trace, Urine WBC 0-5, Ur Epithelial Cells 0-5, Urine Bacteria 1+ H, Urine Culture Comments No culture indicated 09/21/20 11:00: WBC 11.8 H, RBC 4.02 L, Hgb 12.1 L, Hct 38.1, MCV 94.8, MCH 30.1, MCHC 31.8 L, RDW 13.1, Plt Count 170, MPV 10.6, Immature Gran % (Auto) 0.40, Immature Gran # (Auto) 0.05 H, Neutrophils % 90.9 H, Lymphocytes % 3.2 L, Monocytes % 5.2, Eosinophils % 0.1, Basophils % 0.2, Nucleated RBC % 0.0, Neutrophils # 10.8 H, Lymphocytes # 0.38 L, Monocytes # 0.6, Eosinophils # 0.0, Absolute Basophils 0.0 09/21/20 11:00: Sodium 135, Plasma Sodium 135, Potassium 4.0, Chloride 97, Carbon Dioxide 31.4, Anion Gap 10.6, BUN 13, Creatinine 0.76, Est GFR (Non-Af Amer) 79, BUN/Creatinine Ratio 17.1, Random Glucose 124 H, Calcium 8.6, Calcium Adj for Albumin 9.2, Total Bilirubin 0.3, AST 13, ALT 18 L, Alkaline Phosphatase 67, Total Protein 6.6, Albumin 2.9 L Discharge Location: Home Disposition: Home self-care Condition: Fair Face to Face Encounter completed per [facility] Guidelines: No Discharge Activity: Activity as tolerated Discharge Diet: General/regular food Complete Home Medications List: Complete Home Medication List: amlodipine 10 mg tablet 10 mg PO DAILY #30 tab 11/05/19 Acetaminophen [Tylenol] 650 mg PO Q6H PRN #30 tab 11/12/19 Albuterol Sulfate/Ipratropium [Duoneb 2.5-0.5MG/3ML Soln] 3 ml INHALATION BID #7 nebu 11/12/19 albuterol sulfate 90 mcg/actuation aerosol inhaler 2 puff IH Q6H PRN #18 g 12/10/19 omeprazole 40 mg capsule,delayed release 40 mg PO DAILY #90 cap 01/28/20 albuterol sulfate 2.5 mg IH QID #180 ml 02/21/20 budesonide-formoterol HFA 160 mcg-4.5 mcg/actuation aerosol inhaler 2 inh IH BID #0.1 g 03/10/20 lorazepam 0.5 mg tablet 0.5 mg PO BID PRN #14 tab 06/06/20 losartan 50 mg tablet 50 mg PO DAILY #30 tab 08/05/20 Azithromycin 250 mg PO DAILY #3 tab 09/21/20 Azithromycin [Zithromax] 250 mg PO DAILY #3 tablet 09/21/20 Dexamethasone 6 mg PO DAILY #4 tab 09/21/20 Ipratropium/Albuterol Sulfate [Combivent Respimat 20-100 mcg] 1 puff INHALATION Q6H inhaler 09/21/20 Magnesium Hydroxide [Milk Of Magnesia] 30 ml PO DAILY PRN udc 09/21/20 Polyethylene Glycol 3350 [Miralax] 17 gm PO DAILY packet 09/21/20 Sennosides/Docusate Sodium [Senokot-S] 2 tab PO HS tab 09/21/20 Forms: Patient Portal Registration
[2020-09-21 16:29] VITALS: BP 120/73
== END 2020-09-21 16:00 | disposition home or self-care (01) | DRG 177 ==
LOC: ER 04:42 → SCU 07:36
PROVIDERS: ADMIT Internal Medicine; ATTEND Internal Medicine

== ENCOUNTER 2020-10-26 07:39 | Observation (INO) ==
[2020-10-26] MEDS ORDERED: METHYLPREDNISOLONE SOD SUCC/PF 125 MG/2 ML VIAL IV ONE (07:48)
[2020-10-26] MEDS ORDERED: ALBUTEROL SULFATE/IPRATROPIUM 3 ML NEBU IH ONE (07:48)
--- NOTE | 2020-10-26 08:06 | ERNOTE ---
Dyspnea - Date Date of Service: 10/26/20 - General Presenting Symptoms: shortness of breath Time Seen by Provider: 10/26/20 07:47 Source: patient Exam Limitations: no limitations - Immun/Allergies/Home Medications Immunizations: IMMUNIZATION HX Immunizations Up to Date Yes History of Influenza Vaccine No Hx Pneumococcal Vaccination Yes Allergies/Adverse Reactions: Allergies influenza virus vaccine ts [From Fluarix] Adverse Reaction (Mild, Verified 09/28/20 18:15) Other "white around eyes" Home Medications: HOME MEDICATIONS amlodipine 10 mg tablet 10 mg PO DAILY #30 tab 11/05/19 [Last Taken Unknown] Acetaminophen [Tylenol] 650 mg PO Q6H PRN #30 tab 11/12/19 [Last Taken Unknown] albuterol sulfate 90 mcg/actuation aerosol inhaler 2 puff IH Q6H PRN #18 g 12/10/19 [Last Taken Unknown] omeprazole 40 mg capsule,delayed release 40 mg PO DAILY #90 cap 01/28/20 [Last Taken Unknown] budesonide-formoterol HFA 160 mcg-4.5 mcg/actuation aerosol inhaler 2 inh IH BID #0.1 g 03/10/20 [Last Taken Unknown] losartan 50 mg tablet 50 mg PO DAILY #30 tab 08/05/20 [Last Taken Unknown] Albuterol Sulfate 2.5 mg IH DAILY 09/28/20 [Last Taken Unknown] Ondansetron [Zofran Odt] 4 mg PO Q6H PRN #10 tab 09/28/20 [Last Taken Unknown] - History of Present Illness Narrative: Patient presents to the ED for SOB that started yesterday. In the evening. Has been persistent. EMS called this am as it was worse. Chest feels tight. No pleuritic pain. No calf pain or leg swelling. Has removed from Covid and had been on her chronic night O2, rarely used during the day. Has not seen anyone else for this. No fever. EMS provided transport here, she feels no better. 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 Denies: fever/chills, leg/calf pain, ankle/leg swelling, tingling of hands/face Prior Treatment: Denies: currently on antibiotics Review of Systems - Review of Systems Constitutional: Absent: fever EYE: Present: no symptoms reported ENT: Absent: sore throat Respiratory: Present: shortness of breath Cardiology: Present: See HPI Gastrointestinal/Abdominal: Absent: abdominal pain Genitourinary: Absent: dysuria Neurological: Absent: weakness All Other Systems: All systems neg except as marked Medical History (Last Reviewed 10/26/20 @ 08:05 by Dudley Beltran MD) Osteoarthritis (Chronic) Onset Date: Unknown History of gastroesophageal reflux (GERD) (Chronic) Onset Date: Unknown Hypertension (Chronic) Onset Date: Unknown COPD (chronic obstructive pulmonary disease) (Chronic) Onset Date: Unknown Rib fractures Onset Date: Unknown closed Surgical History: Surgical History (Last Reviewed 10/26/20 @ 08:05 by Dudley Beltran MD) H/O colonoscopy Onset Date: ~02/07/08 03/24/17; '08 Yonny; hyperplastic polyp. ' Gwendolyn, tubular adenoma x2 recheck in 5 years H/O tubal ligation Onset Date: ~1969 open History of appendectomy Onset Date: ~1969 open History of cholecystectomy Onset Date: ~1969 open History of esophagogastroduodenoscopy (EGD) Onset Date: ~02/07/08 03/14/17 With Biopsy; '08 Yonny mild reactive gastropathy, w esophageal dilation; '17 Gwendolyn clotest negative, gastritis Family History: Family History (Last Reviewed 10/26/20 @ 08:05 by Dudley Beltran MD) Brother Alive and well Sister Cancer lung Sister Diabetes Father , age 54 CVA (cerebral vascular accident) Hypertension CAD (coronary artery disease) Mother , age 70 unknown causes Hypertension Sister , age 60 No problems noted. Social History: (Last Reviewed 10/26/20 @ 08:05 by Dudley Beltran MD) Social History: adopted: No Marital status: / household members: none number of children: 4 current occupational status: retired Highest level of school completed/degree received: 11th grade Service: No Tobacco: Smoking Status: Former smoker how long ago did patient quit smoking: age 56 Alcohol: alcohol intake: current alcohol intake frequency: holiday/special occasion Substance Use: substance use type: unknown Dietary Habits: caffeine: Yes Physical Exam - Physical Exam General Appearance: Present: alert, moderate distress Head Exam: Present: normal inspection, no evidence of injury Eye Exam: Normal inspection: bilateral, PERRL: bilateral Ears, Nose, Throat: Present: normal ENT inspection Neck: Present: normal inspection Respiratory: Present: respiratory distress, accessory muscle use, wheezing Cardiovascular/Chest: Present: normal peripheral pulses, tachycardia Gastrointestinal/Abdominal: Present: normal bowel sounds, nontender, nondistended, soft Back Exam: Absent: CVA tenderness (R), CVA tenderness (L) Extremity Exam: Present: no edema Neurological Exam: Present: alert, no motor/sensory deficits Skin Exam: Present: normal color, warm/dry Progress - Results and Orders Patient's Lab Results:: I have reviewed the patient's lab results. - Vital Signs Patient's Vital Signs:: I have reviewed the patient's vital signs. Vital Signs: Vital Signs 10/26/20 07:39 Temperature 36.4 C Pulse Rate 114 H Respiratory Rate 42 H Blood Pressure 138/75 O2 Sat by Pulse Oximetry 90 L - EKG EKG #1 EKG read: Interp. by me EKG Comments: Sinus tachycardia rate 116, PVCs, non-specific ST/T wave changes, no STEMI noted. - X-Ray X-Ray #1 X-Ray: chest Interpretation: Interp. by me X-ray Comments: No real time radiology reads. I personally reviewed CXR image, no pneumonia or PTX noted. - CT/Ultrasound CT/Ultrasound Narrative: I reviewed official radiology report for CT chest, no PE - Progress/Reassessment Progress Note-Subjective: 10/26/20 10:17 Patent with accessory muscle use, moderate distress. Started immediately on BiPap, given IV solumedrol and continuous neb. She improved significantly with nebs and we will try her off BiPap, she certainly cannot go home but will need hospital observation as she may need to be restarted on BiPap. I spoke with Dr Mark who will admit obs. Departure Clinical Impression: COPD exacerbation, Respiratory distress - Departure Disposition: Still a patient Condition: Fair Referrals: Pau Haywood MD [Primary Care Provider] -
[2020-10-26 08:16] LABS: Hematocrit 41.7 % (37.0-47.0); Mean Cell Volume 96.3 fl (78-100); Mean Corpuscular Hgb Conc 31.2 g/dl (32-36); Mean Platelet Volume 10.4 fl (8-12.5); Neutrophil # 7.7 K/mm3 (1.3-6.0); Neutrophil % 79.9 % (42-75.0); Platelet Count 299 K/mm3 (150-450); Red Blood Count 4.33 M/mm3 (4.2-5.4); Red Cell Distribution Width 13.6 % (11.5-14.0); White Blood Count 9.7 K/mm3 (4.0-10.5)
[2020-10-26 08:34] LABS: ALT 18 U/L (19-67); AST 14 U/L (0-48); Albumin * 3.7 gm/dl (3.4-5.0); Alkaline Phosphatase * 98 U/L (50-170); Anion Gap 14.6 mmol/L (6.8-13.8); BNP * 254 pg/mL (5-550); BUN/Creatinine Ratio 11.8 (9.0-21.6); Bilirubin, Total 0.4 mg/dL (0.0-1.1); Blood Urea Nitrogen 8 mg/dL (3-23); Ca. Corrected For Albumin 9.3 mg/dL (8.4-10.2); Calcium * 9.4 mg/dL (7.9-10.9); Carbon Dioxide 27.1 mmol/L (24-32.6); Chloride 102 mmol/L (97-106); Glucose * 158 mg/dL (70-110); Magnesium 1.4 mg/dL (1.2-2.8); Potassium 3.7 mmol/L (3.4-4.6); Sodium 140 mmol/L (132-142); Total Protein 7.7 gm/dL (6.2-8.2); Troponin I Less than 0.017 ng/mL (0.00-0.10)
[2020-10-26] MEDS ORDERED: ALBUTEROL SULFATE 2.5 MG/0.5 ML VIAL.NEB IH ONE (08:41)
[2020-10-26] MEDS ORDERED: LORazepam 2 MG/ML DISP.SYRIN IV ONE (09:13)
[2020-10-26] MEDS ORDERED: NORMAL SALINE 1,000 ML IV ONE (10:14)
--- NOTE | 2020-10-26 12:45 | HP ---
Chief Complaint - Chief Complaint Date of Service: 10/26/20 Time of Service: 12:44 Chief Complaint: Shortness of breath History of Present Illness: 75-year-old female came to the ER via EMS after she developed worsening shortness of breath that started the previous evening and worsened throughout the night and into this morning. She endorsed some chest tightness. She denied chest pain, radiating pain, headache. Patient has already had Covid infection, 1 month previously. She has history of COPD and feels like she "overdid it "yesterday. She denies fevers or chills. Chest x-ray showed hyperinflation of her lungs but no other acute cardiopulmonary process. She did have an elevated D-dimer in the ER, CT angiogram was negative for pulmonary embolus. She initially in the ER was requiring BiPAP to maintain sats but was weaned down and by the time she got to the inpatient side she was back to her baseline 2 L via nasal cannula. She did receive Solu-Medrol in the ER. She denies productive cough. Her white count was 9.7. CHEM panel was essentially normal aside from a mildly elevated glucose at 158. Patient states that she is much better and "ready to go ". She agreed to stay overnight for observation to make sure sats maintained on home required O2. Patient with history of COPD, hypertension, acid reflux. Medical History (Last Reviewed 10/26/20 @ 11:53 by Dyan Jacques RN) Osteoarthritis (Chronic) Onset Date: Unknown History of gastroesophageal reflux (GERD) (Chronic) Onset Date: Unknown Hypertension (Chronic) Onset Date: Unknown COPD (chronic obstructive pulmonary disease) (Chronic) Onset Date: Unknown Rib fractures Onset Date: Unknown closed Surgical History: Surgical History (Last Reviewed 10/26/20 @ 11:53 by Dyan Jacques RN) H/O colonoscopy Onset Date: ~02/07/08 03/24/17; '08 Yonny; hyperplastic polyp. ' Gwendolyn, tubular adenoma x2 recheck in 5 years H/O tubal ligation Onset Date: ~1969 open History of appendectomy Onset Date: ~1969 open History of cholecystectomy Onset Date: ~1969 open History of esophagogastroduodenoscopy (EGD) Onset Date: ~02/07/08 03/14/17 With Biopsy; '08 Yonny mild reactive gastropathy, w esophageal dilation; ' Bagan clotest negative, gastritis Family History: Family History (Last Reviewed 10/26/20 @ 11:53 by Dyan Jacques RN) Brother Alive and well Sister Cancer lung Sister Diabetes Father , age 54 CAD (coronary artery disease) Hypertension CVA (cerebral vascular accident) Mother , age 70 unknown causes Hypertension Sister , age 60 No problems noted. Social History: (Last Reviewed 10/26/20 @ 08:11 by Nivia Stroud RN) Social History: adopted: No Marital status: / household members: none number of children: 4 current occupational status: retired Highest level of school completed/degree received: 11th grade Service: No Tobacco: Smoking Status: Former smoker how long ago did patient quit smoking: age 56 Alcohol: alcohol intake: current alcohol intake frequency: holiday/special occasion Substance Use: substance use type: unknown Dietary Habits: caffeine: Yes Review Of Systems (GEN) - Review of Systems Generalized/Overall Review: Absent: Weakness, Chills, Fever EENTM: Present: No Symptoms Reported Respiratory: Present: Shortness of Breath. Absent: Cough, Wheezing Cardiac: Absent: Chest Pain, Edema Abdominal: Present: No Symptoms Reported Genitourinary: Present: No Symptoms Reported Musculoskeletal: Present: No Symptoms Reported Neurological: Present: No Symptoms Reported Skin: Present: No Symptoms Reported Endocrine: Present: No Symptoms Reported Immunizations: IMMUNIZATION HX Immunizations Up to Date Yes History of Influenza Vaccine No Hx Pneumococcal Vaccination Yes Allergies/Adverse Reactions: Allergies Allergy/AdvReac Type Severity Reaction Status Date / Time influenza virus vaccine ts AdvReac Mild Other Verified 09/28/20 18:15 [From Fluarix] Home Medications: HOME MEDICATIONS amlodipine 10 mg tablet 10 mg PO DAILY #30 tab 11/05/19 [Last Taken Unknown] Acetaminophen [Tylenol] 650 mg PO Q6H PRN #30 tab 11/12/19 [Last Taken Unknown] albuterol sulfate 90 mcg/actuation aerosol inhaler 2 puff IH Q6H PRN #18 g 12/10/19 [Last Taken Unknown] omeprazole 40 mg capsule,delayed release 40 mg PO DAILY #90 cap 01/28/20 [Last Taken Unknown] losartan 50 mg tablet 50 mg PO DAILY #30 tab 08/05/20 [Last Taken Unknown] Albuterol Sulfate 2.5 mg IH DAILY 09/28/20 [Last Taken Unknown] Ondansetron [Zofran Odt] 4 mg PO Q6H PRN #10 tab 09/28/20 [Last Taken Unknown] Budesonide [Pulmicort] 1 mg IH BID 10/26/20 [Last Taken Unknown] Formoterol Fumarate [Perforomist] 20 mcg IH BID 10/26/20 [Last Taken Unknown] Exam - Exam Vital Signs: Vital Signs - Last Taken Temp 36.4 C 10/26/20 11:30 Pulse 102 H 10/26/20 11:30 Resp 22 H 10/26/20 11:30 BP 123/58 10/26/20 11:30 Pulse Ox 100 10/26/20 11:30 Constitutional: Present: Alert, Oriented x3, Cooperative, Elderly, Overweight ENT Exam: Present: hearing grossly normal Eye Exam: bilateral eye: normal inspection, EOMI Neck: Present: non-tender, supple Back Exam: Present: normal inspection, no CVA tenderness Respiratory: Present: lungs clear, normal breath sounds, no respiratory distress Cardiovascular/Chest: Present: regular rate, rhythm, no murmur, edema - Trace edema bilateral lower extremities Peripheral Pulses: dorsalis-pedis (R): 2+, dorsalis-pedis (L): 2+ Abdomen: Present: Normal bowel sounds, soft, nontender, nondistended Extremity: Present: non-tender, normal inspection Skin Exam: Present: normal color, warm/dry Neurologic: Present: alert, normal mood/affect, oriented x 3 Appearance: Present: appropriate appearance, appropriate insight, neat Eye contact: Present: cooperative, good eye contact Thoughts: Present: normal thought pattern, normal mood /affect Diagnostic Studies: Abnormal Lab Results 10/26/20 10/26/20 10/26/20 Range/Units 08:06 08:06 08:06 MCHC (32-36) g/dl Immature Gran # (Auto) (0.000-0.0310) K/mm3 Neutrophils % (42-75.0) % Lymphocytes % (20-51) % Neutrophils # (1.3-6.0) K/mm3 Lymphocytes # (1.5-3.5) k/mm3 D-Dimer 0.99 H (0.19-0.49) ug/mL pO2 (83.0-108.0) mmHg Total CO2 (19.0-24.0) mmol/L Anion Gap 14.6 H (6.8-13.8) mmol/L Random Glucose 158 H (70-110) mg/dL ALT 18 L (19-67) U/L Procalcitonin Less than 0.05 L (0.05-0.50) ng/mL 10/26/20 10/26/20 Range/Units 08:10 08:25 MCHC 31.2 L (32-36) g/dl Immature Gran # (Auto) 0.04 H (0.000-0.0310) K/mm3 Neutrophils % 79.9 H (42-75.0) % Lymphocytes % 12.3 L (20-51) % Neutrophils # 7.7 H (1.3-6.0) K/mm3 Lymphocytes # 1.19 L (1.5-3.5) k/mm3 D-Dimer (0.19-0.49) ug/mL pO2 73.1 L (83.0-108.0) mmHg Total CO2 27.0 H (19.0-24.0) mmol/L Anion Gap (6.8-13.8) mmol/L Random Glucose (70-110) mg/dL ALT (19-67) U/L Procalcitonin (0.05-0.50) ng/mL Laboratory Results WBC 9.7 K/mm3 (4.0-10.5) 10/26/20 08:10 RBC 4.33 M/mm3 (4.2-5.4) 10/26/20 08:10 Hgb 13.0 gm/dL (12.5-16.0) 10/26/20 08:10 Hct 41.7 % (37.0-47.0) 10/26/20 08:10 MCV 96.3 fl (78-100) 10/26/20 08:10 MCH 30.0 pg (27-31) 10/26/20 08:10 MCHC 31.2 g/dl (32-36) L 10/26/20 08:10 RDW 13.6 % (11.5-14.0) 10/26/20 08:10 Plt Count 299 K/mm3 (150-450) 10/26/20 08:10 MPV 10.4 fl (8-12.5) 10/26/20 08:10 Immature Gran % (Auto) 0.40 % (0.001-0.429) 10/26/20 08:10 Immature Gran # (Auto) 0.04 K/mm3 (0.000-0.0310) H 10/26/20 08:10 Neutrophils % 79.9 % (42-75.0) H 10/26/20 08:10 Lymphocytes % 12.3 % (20-51) L 10/26/20 08:10 Monocytes % 5.6 % (0.0-9) 10/26/20 08:10 Eosinophils % 0.9 % (0.0-3.0) 10/26/20 08:10 Basophils % 0.9 % (0.0-1.0) 10/26/20 08:10 Nucleated RBC % 0.0 k/mm3 (0-1) 10/26/20 08:10 Neutrophils # 7.7 K/mm3 (1.3-6.0) H 10/26/20 08:10 Lymphocytes # 1.19 k/mm3 (1.5-3.5) L 10/26/20 08:10 Monocytes # 0.5 k/mm3 (0.0-1.0) 10/26/20 08:10 Eosinophils # 0.1 k/mm3 (0.0-0.7) 10/26/20 08:10 Absolute Basophils 0.1 k/mm3 (0.0-0.1) 10/26/20 08:10 D-Dimer 0.99 ug/mL (0.19-0.49) H 10/26/20 08:06 pCO2 40.2 mmHg (32.0-45.0) 10/26/20 08:25 pO2 73.1 mmHg (83.0-108.0) L 10/26/20 08:25 HCO3 25.8 mmol/L (21.0-28.0) 10/26/20 08:25 Total CO2 27.0 mmol/L (19.0-24.0) H 10/26/20 08:25 Base Excess 1.3 mmol/L (-2.0-3.0) 10/26/20 08:25 ABG pH 7.43 (7.35-7.45) 10/26/20 08:25 ABG O2 Sat (Measured) 95.0 % (94.0-98.0) 10/26/20 08:25 Sodium 140 mmol/L (132-142) 10/26/20 08:06 Plasma Sodium 141 mmol/L (130-142) 10/26/20 08:06 Potassium 3.7 mmol/L (3.4-4.6) 10/26/20 08:06 Chloride 102 mmol/L (97-106) 10/26/20 08:06 Carbon Dioxide 27.1 mmol/L (24-32.6) 10/26/20 08:06 Anion Gap 14.6 mmol/L (6.8-13.8) H 10/26/20 08:06 BUN 8 mg/dL (3-23) D 10/26/20 08:06 Creatinine 0.68 mg/dL (0.4-1.4) 10/26/20 08:06 Est GFR (Non-Af Amer) 89 mL/min (60-130) D 10/26/20 08:06 BUN/Creatinine Ratio 11.8 (9.0-21.6) 10/26/20 08:06 Random Glucose 158 mg/dL (70-110) H 10/26/20 08:06 Lactic Acid, Venous 1.5 mmol/L (0.4-2.0) 10/26/20 08:06 Calcium 9.4 mg/dL (7.9-10.9) 10/26/20 08:06 Calcium Adj for Albumin 9.3 mg/dL (8.4-10.2) 10/26/20 08:06 Magnesium 1.4 mg/dL (1.2-2.8) 10/26/20 08:06 Total Bilirubin 0.4 mg/dL (0.0-1.1) 10/26/20 08:06 AST 14 U/L (0-48) 10/26/20 08:06 ALT 18 U/L (19-67) L 10/26/20 08:06 Alkaline Phosphatase 98 U/L (50-170) 10/26/20 08:06 Troponin I Less than 0.017 ng/mL (0.00-0.10) 10/26/20 08:06 B-Natriuretic Peptide 254 pg/mL (5-550) 10/26/20 08:06 Total Protein 7.7 gm/dL (6.2-8.2) 10/26/20 08:06 Albumin 3.7 gm/dl (3.4-5.0) 10/26/20 08:06 Procalcitonin Less than 0.05 ng/mL (0.05-0.50) L 10/26/20 08:06 Assessment/Plan - Narrative Narrative: 75-year-old female here for observation due to COPD exacerbation. Hypoxia recovered significantly once getting to the floor. Patient back on normal home requirements regarding her oxygen usage. Patient feels well is very pleasant to converse with. Patient is afebrile, normal white count. No antibiotics warranted at this time. We will continue Solu-Medrol 60 mg every 8 hours, then likely go home with prednisone burst. Continue oxygen as needed. Her vital signs been stable otherwise. Restarted home medicines for hypertension and acid reflux. SCDs to be worn while in bed. Nurse to call questions or concerns. - Assessment/Plan (1) Hypoxia Problem: Resolved (2) COPD exacerbation Problem: Resolved (3) Hypertension Problem: Chronic Qualifiers: Hypertension type: essential hypertension Qualified Code(s): I10 - Essential (primary) hypertension (4) GERD (gastroesophageal reflux disease) Problem: Chronic Qualifiers: Esophagitis presence: esophagitis presence not specified Qualified Code(s): K21.9 - Gastro-esophageal reflux disease without esophagitis
[2020-10-26] MEDS ORDERED: ALBUTEROL SULFATE 2.5 MG/0.5 ML VIAL.NEB IH PRN (12:51)
[2020-10-26] MEDS ORDERED: ACETAMINOPHEN 325 MG TABLET PO PRN (12:51)
[2020-10-26] MEDS ORDERED: ONDANSETRON 4 MG TAB.RAPDIS PO PRN (12:51)
[2020-10-26] MEDS: METHYLPREDNISOLONE SOD SUCC/PF 125 MG/2 ML VIAL IV SCH ×2 (14:41→22:12)
[2020-10-26] MEDS: FORMOTEROL FUMARATE 20 MCG/2 ML VIAL IH SCH (18:07)
[2020-10-26] MEDS: BUDESONIDE 0.5 MG/2 ML VIAL.NEB IH SCH (18:07)
[2020-10-26] MEDS ORDERED: FLUTICASONE PROPION/SALMETEROL 14 PUFF DISK.W.DEV IH SCH (21:00)
[2020-10-27] MEDS: BUDESONIDE 0.5 MG/2 ML VIAL.NEB IH SCH (05:59)
[2020-10-27] MEDS: FORMOTEROL FUMARATE 20 MCG/2 ML VIAL IH SCH (05:59)
[2020-10-27] MEDS ORDERED: PANTOPRAZOLE SODIUM 40 MG TABLET.EC PO SCH (07:00)
[2020-10-27] MEDS ORDERED: ALBUTEROL SULFATE 2.5 MG/0.5 ML VIAL.NEB IH SCH ×2 (07:00→09:00)
[2020-10-27] MEDS: METHYLPREDNISOLONE SOD SUCC/PF 125 MG/2 ML VIAL IV SCH (07:02)
[2020-10-27] MEDS ORDERED: LOSARTAN POTASSIUM 50 MG TABLET PO SCH (09:00)
[2020-10-27] MEDS ORDERED: amLODIPine BESYLATE 10 MG TABLET PO SCH (09:00)
--- NOTE | 2020-10-27 10:34 | DS ---
(1) Hypoxia Problem: Resolved (2) COPD exacerbation Problem: Resolved (3) Hypertension Problem: Chronic Qualifiers: Hypertension type: essential hypertension Qualified Code(s): I10 - Essential (primary) hypertension (4) GERD (gastroesophageal reflux disease) Problem: Chronic Qualifiers: Esophagitis presence: esophagitis presence not specified Qualified Code(s): K21.9 - Gastro-esophageal reflux disease without esophagitis Date of Discharge:: 10/27/20 Hospital Course: 75-year-old female with history of COPD who was admitted to the hospital under observation for COPD exacerbation. Patient began to get shortness of breath the day before admission which continued to worsen until she came in. In the ER she required greater levels of O2 via nasal cannula, more so than her home settings. Work-up was negative for infection, pulmonary embolus. Patient recovered quickly, wanted to be discharged home on day of admission not long after getting to the floor. Convinced her to stay overnight to monitor her vital signs which she agreed to do. She remained stable and returned back to her home settings on oxygen. This morning when seen she was resting comfortably in her chair though she was endorsing some anxiety which has been ongoing issue. She is going to talk to her PCP about this when she follows up with him. She also had some nausea which has been an ongoing issue for for "years". She did not want any nausea medicine. She will be sent home on a short burst of prednisone. She thinks the steroids are what made her nauseated and slightly anxious which is understandable. She is asking for anxiety medicine but I cannot find any in her charts and so I will let Dr. Haywood address this when she follows up with him. No changes to her chronic medications otherwise. Procedures Performed: none Results and Findings: Pending Mircobiology Results 10/26/20 08:40 Blood Blood Culture - Preliminary NO GROWTH 24 HOURS 10/26/20 08:06 Blood Blood Culture - Preliminary NO GROWTH 24 HOURS Lab Pending Results 10/26/20 08:06: Sodium 140, Plasma Sodium 141, Potassium 3.7, Chloride 102, Carbon Dioxide 27.1, Anion Gap 14.6 H, BUN 8 D, Creatinine 0.68, Est GFR (Non- Af Amer) 89 D, BUN/Creatinine Ratio 11.8, Random Glucose 158 H, Calcium 9.4, Calcium Adj for Albumin 9.3, Magnesium 1.4, Total Bilirubin 0.4, AST 14, ALT 18 L, Alkaline Phosphatase 98, Troponin I Less than 0.017, B-Natriuretic Peptide 254, Total Protein 7.7, Albumin 3.7 10/26/20 08:06: Procalcitonin Less than 0.05 L 10/26/20 08:06: D-Dimer 0.99 H 10/26/20 08:06: Lactic Acid, Venous 1.5 10/26/20 08:10: WBC 9.7, RBC 4.33, Hgb 13.0, Hct 41.7, MCV 96.3, MCH 30.0, MCHC 31.2 L, RDW 13.6, Plt Count 299, MPV 10.4, Immature Gran % (Auto) 0.40, Immature Gran # (Auto) 0.04 H, Neutrophils % 79.9 H, Lymphocytes % 12.3 L, Monocytes % 5.6, Eosinophils % 0.9, Basophils % 0.9, Nucleated RBC % 0.0, Neutrophils # 7.7 H, Lymphocytes # 1.19 L, Monocytes # 0.5, Eosinophils # 0.1, Absolute Basophils 0.1 10/26/20 08:25: pCO2 40.2, pO2 73.1 L, HCO3 25.8, Total CO2 27.0 H, Base Excess 1.3, ABG pH 7.43, ABG O2 Sat (Measured) 95.0 Discharge Location: Home Disposition: Home self-care Condition: Stable Discharge Activity: Activity as tolerated Discharge Diet: Low fat/chol Referrals: Pau Haywood MD [Primary Care Provider] - Two Weeks Prescriptions (Any new or edited meds): predniSONE [Prednisone] 2 tab PO DAILY #10 tab Transmission Status: Pending to [facility] #[id number] Complete Home Medications List: Complete Home Medication List: amlodipine 10 mg tablet 10 mg PO DAILY #30 tab 11/05/19 Acetaminophen [Tylenol] 650 mg PO Q6H PRN #30 tab 11/12/19 albuterol sulfate 90 mcg/actuation aerosol inhaler 2 puff IH Q6H PRN #18 g 12/10/19 omeprazole 40 mg capsule,delayed release 40 mg PO DAILY #90 cap 01/28/20 losartan 50 mg tablet 50 mg PO DAILY #30 tab 08/05/20 Albuterol Sulfate 2.5 mg IH DAILY 09/28/20 Ondansetron [Zofran Odt] 4 mg PO Q6H PRN #10 tab 09/28/20 Budesonide [Pulmicort] 1 mg IH BID 10/26/20 Formoterol Fumarate [Perforomist] 20 mcg IH BID 10/26/20 predniSONE [Prednisone] 2 tab PO DAILY #10 tab 10/27/20 Forms: Patient Portal Registration
[2020-10-27 12:46] VITALS: BP 141/49
== END 2020-10-27 13:00 | disposition home or self-care (01) ==
LOC: ER 07:39 → MS 07:39
PROVIDERS: ADMIT Family Medicine; ATTEND Family Medicine

== ENCOUNTER 2021-02-27 18:11 | Observation (INO) ==
[2021-02-27] MEDS ORDERED: METHYLPREDNISOLONE SOD SUCC/PF 125 MG/2 ML VIAL IV ONE (18:50)
[2021-02-27] MEDS ORDERED: ALBUTEROL SULFATE/IPRATROPIUM 3 ML NEBU IH ONE (18:50)
--- NOTE | 2021-02-27 19:06 | ERNOTE ---
Dyspnea - Date Date of Service: 02/27/21 - General Presenting Symptoms: shortness of breath Time Seen by Provider: 02/27/21 18:44 Source: patient Exam Limitations: no limitations - Immun/Allergies/Home Medications Immunizations: IMMUNIZATION HX Immunizations Up to Date Yes Immunizations Comment has had 2 Covid History of Influenza Vaccine No Hx Pneumococcal Vaccination Yes Allergies/Adverse Reactions: Allergies influenza virus vaccine ts [From Fluarix] Adverse Reaction (Mild, Verified 02/27/21 18:31) Other "white around eyes" Home Medications: HOME MEDICATIONS albuterol sulfate 90 mcg/actuation aerosol inhaler 2 puff IH Q6H PRN #18 g 12/10/19 [Last Taken Unknown] Albuterol Sulfate 2.5 mg IH DAILY 09/28/20 [Last Taken Unknown] amlodipine 10 mg tablet 10 mg PO DAILY #30 tab 11/03/20 [Last Taken Unknown] budesonide-formoterol HFA 160 mcg-4.5 mcg/actuation aerosol inhaler 2 inh IH BID 11/03/20 [Last Taken Unknown] lorazepam 0.5 mg tablet 0.5 mg PO BID PRN #30 tab 12/22/20 [Last Taken Unknown] Ondansetron [Zofran Odt] 4 mg PO Q8H PRN #10 tab 02/07/21 [Last Taken Unknown] losartan 50 mg tablet 50 mg PO DAILY #30 tab 02/09/21 [Last Taken Unknown] Albuterol Sulfate/Ipratropium [Duoneb 2.5-0.5MG/3ML Soln] 3 ml IH TID #150 vial 02/17/21 [Last Taken Unknown] Levofloxacin [Levaquin] 500 mg PO DAILY #7 tab 02/28/21 [Last Taken Unknown] predniSONE [Prednisone] 2 tab PO DAILY #14 tab 02/28/21 [Last Taken Unknown] - Pain Score Pain Score #1 Pain Score: 6 - History of Present Illness Narrative: The patient is a 75 year old female who presents via POV for dyspnea which has been increased since this afternoon. There are associated symptoms of sternal chest pain. The patient reports sternal chest pain, 6/10. There are no alleviating factors. There are aggravating factors of minimal activity. Previous treatments have included: albuterol without improvement. The past medical history includes: COPD, HTN, GERD and osteoarthritis. The social history is positive for former smoker. The patient has had no known ill contacts. Patient states that she finished prednisone, 5 days ago and felt that she was doing well. Patient states she awoke this am and felt "great" but then around lunchtime develop increased shortness of breath that has worsened since onset. Patient states she also had sternal chest discomfort that radiates through to her back. 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 Patient states she has been using her previously prescribed neb regimen without improvement. Patient is able to speak in complete sentences and is wearing home O2 2l/NC with SpO2 97%. Review of Systems - Review of Systems Constitutional: Present: fatigue. Absent: fever, chills EYE: Present: no symptoms reported ENT: Present: no symptoms reported. Absent: ear pain, nasal drainage, sore throat Respiratory: Present: shortness of breath. Absent: cough Cardiology: Present: chest pain Gastrointestinal/Abdominal: Present: nausea. Absent: vomiting, diarrhea, abdominal pain Genitourinary: Absent: dysuria, decreased urinary output Musculoskeletal: Present: back pain Skin: Present: no symptoms reported. Absent: rash Neurological: Absent: headache, dizziness/light-headedness Medical History (Last Reviewed 02/27/21 @ 18:59 by KATT Garcia) Osteoarthritis (Chronic) Onset Date: Unknown History of gastroesophageal reflux (GERD) (Chronic) Onset Date: Unknown Hypertension (Chronic) Onset Date: Unknown COPD (chronic obstructive pulmonary disease) (Chronic) Onset Date: Unknown Rib fractures Onset Date: Unknown closed Surgical History: Surgical History (Last Reviewed 02/27/21 @ 18:59 by KATT Garcia) H/O colonoscopy Onset Date: ~02/07/08 03/24/17; '08 Yonny; hyperplastic polyp. ' Gwendolyn, tubular adenoma x2 recheck in 5 years H/O tubal ligation Onset Date: ~1969 open History of appendectomy Onset Date: ~1969 open History of cholecystectomy Onset Date: ~1969 open History of esophagogastroduodenoscopy (EGD) Onset Date: ~02/07/08 03/14/17 With Biopsy; '08 Yonny mild reactive gastropathy, w esophageal dilation; '17 Bagan clotest negative, gastritis Family History: Family History (Last Reviewed 02/27/21 @ 18:59 by KATT Garcia) Brother Alive and well Sister Cancer lung Sister Diabetes Father , age 54 CVA (cerebral vascular accident) Hypertension CAD (coronary artery disease) Mother , age 70 unknown causes Hypertension Sister , age 60 No problems noted. Social History: (Last Reviewed 02/27/21 @ 18:59 by KATT Garcia) Social History: adopted: No Marital status: / household members: none number of children: 4 current occupational status: retired Highest level of school completed/degree received: 11th grade Service: No Tobacco: Smoking Status: Former smoker how long ago did patient quit smoking: age 56 Alcohol: alcohol intake: current alcohol intake frequency: holiday/special occasion Substance Use: substance use type: unknown Dietary Habits: caffeine: Yes Physical Exam - Physical Exam General Appearance: Present: wd/wn, alert, mild distress Head Exam: Present: normal inspection, no evidence of injury Eye Exam: Normal inspection: bilateral Neck: Present: normal inspection Respiratory: Present: no respiratory distress, accessory muscle use, decreased breath sounds, wheezing - end of expiration Cardiovascular/Chest: Present: tachycardia, irregularly irregular, extra beats Gastrointestinal/Abdominal: Present: normal bowel sounds, nontender, nondistended, soft, no organomegaly Extremity Exam: Present: no edema Neurological Exam: Present: alert, oriented, normal mood/affect, no motor/sensory deficits Skin Exam: Present: normal color, warm/dry Progress - Date and Time Seen: Date and Time: 02/27/21 20:47 Patient air exchange slightly improved following duoneb treatment. Patient states that she is feeling better and does appear to be resting more comfortable. ABG's obtained and will titrate down O2 to 1l/NC. Patient is now coughing up thick yellow sputum following treatment. Due to recent recurrence of symptoms within 10 day interval discussed case with and will admit observation for COPD exacerbation. This plan was discussed with patient and verbalized understanding and agrees with plan. I did review recent antibiotic therapy with and will initiate treatment with Levaquin. - Results and Orders Patient's Lab Results:: I have reviewed the patient's lab results. - Vital Signs Patient's Vital Signs:: I have reviewed the patient's vital signs. Vital Signs: Vital Signs 02/27/21 18:15 Temperature 36.8 C Pulse Rate 100 Respiratory Rate 22 H Blood Pressure 163/80 H O2 Sat by Pulse Oximetry 98 - EKG EKG #1 EKG: NSR - sinus tachycardia rate 113, premature ventricular contraction, RBBB EKG read: Reviewed by me - X-Ray X-Ray #1 X-Ray: chest Interpretation: Reviewed by me X-ray Comments: IMPRESSION: No acute pulmonary findings. Overall, no significant interval change. Electronically signed by Cj Daniels D.O.. - Progress/Reassessment Chief Complaint: Dyspnea Departure Clinical Impression: COPD with exacerbation - Departure Disposition: Still a patient Condition: Stable
[2021-02-27 19:11] LABS: Hematocrit 44.9 % (37.0-47.0); Hemoglobin 13.8 gm/dL (12.5-16.0); Mean Cell Volume 94.3 fl (78-100); Mean Corpuscular Hgb Conc 30.7 g/dl (32-36); Mean Platelet Volume 10.5 fl (8-12.5); Neutrophil # 10.1 K/mm3 (1.3-6.0); Neutrophil % 76.9 % (42-75.0); Platelet Count 226 K/mm3 (150-450); Red Blood Count 4.76 M/mm3 (4.2-5.4); Red Cell Distribution Width 13.5 % (11.5-14.0); White Blood Count 13.1 K/mm3 (4.0-10.5)
[2021-02-27 19:29] LABS: ALT 17 U/L (19-67); AST 13 U/L (0-48); Alkaline Phosphatase * 91 U/L (50-170); Anion Gap 13.9 mmol/L (6.8-13.8); BUN/Creatinine Ratio 18.8 (9.0-21.6); Bilirubin, Total 0.5 mg/dL (0.0-1.1); Blood Urea Nitrogen 12 mg/dL (3-23); Ca. Corrected For Albumin 9.4 mg/dL (8.4-10.2); Calcium * 9.7 mg/dL (7.9-10.9); Carbon Dioxide 30.5 mmol/L (24-32.6); Chloride 99 mmol/L (97-106); Glucose * 108 mg/dL (70-110); Magnesium 1.6 mg/dL (1.2-2.8); Potassium 4.4 mmol/L (3.4-4.6); Sodium 139 mmol/L (132-142); Total Protein 8.1 gm/dL (6.2-8.2); Troponin I Less than 0.017 ng/mL (0.00-0.10)
[2021-02-27] MEDS ORDERED: LEVOFLOXACIN IN DEXTROSE 5 % 500 MG/100 ML BAG IV SCH (21:00)
[2021-02-27] MEDS ORDERED: ALBUTEROL SULFATE/IPRATROPIUM 3 ML NEBU IH SCH (21:15)
[2021-02-27] MEDS ORDERED: ALBUTEROL SULFATE 2.5 MG/0.5 ML VIAL.NEB IH PRN (22:24)
[2021-02-27] MEDS ORDERED: ALBUTEROL SULFATE 200 PUFF INHALER IH PRN (22:24)
[2021-02-27] MEDS ORDERED: LORazepam 0.5 MG TABLET PO PRN (22:24)
[2021-02-27] MEDS ORDERED: ONDANSETRON 4 MG TAB.RAPDIS PO PRN (22:24)
[2021-02-28] MEDS: METHYLPREDNISOLONE SOD SUCC/PF 40 MG/ML VIAL IV SCH ×3 (00:46→13:55)
[2021-02-28] MEDS ORDERED: ALBUTEROL SULFATE/IPRATROPIUM 3 ML NEBU IH ONE (05:39)
[2021-02-28] MEDS: ALBUTEROL SULFATE/IPRATROPIUM 3 ML NEBU IH SCH ×3 (06:02→14:20)
--- NOTE | 2021-02-28 07:03 | HPDIS ---
Chief Complaint - Chief Complaint Date of Service: 02/28/21 - n Time of Service: 06:57 Chief Complaint: shortness of breath History of Present Illness: Demi Maddox is a 75-year-old white female with past medical history significant for COPD on home oxygen, generalized anxiety disorder, gastroesophageal reflux disease, osteoarthritis who was admitted on 02/27/2021 for shortness of breath. The patient has been in and out of our emergency room and has been on outpatient antibiotics and prednisone for episodes of shortness of breath due to COPD exacerbation. Today after her lunch she had some substernal epigastric discomfort that went to her back and she started getting shortness of breath again and wheezing. She had just finished her prednisone 5 days ago. She denies any fever or chills. She has been seeing her filter worker who had taken her out of her DuoNeb recently because of nausea. She was admitted for observation as she has failed several recent episodes of exacerbations. Medical History (Last Reviewed 02/27/21 @ 22:33 by Aleah Randle RN) Osteoarthritis (Chronic) Onset Date: Unknown History of gastroesophageal reflux (GERD) (Chronic) Onset Date: Unknown Hypertension (Chronic) Onset Date: Unknown COPD (chronic obstructive pulmonary disease) (Chronic) Onset Date: Unknown Rib fractures Onset Date: Unknown closed Surgical History: Surgical History (Last Reviewed 02/27/21 @ 22:34 by Aleah Randle RN) H/O colonoscopy Onset Date: ~02/07/08 03/24/17; '08 Yonny; hyperplastic polyp. '17 Gwendolyn, tubular adenoma x2 rech crissy in 5 years H/O tubal ligation Onset Date: ~1969 open History of appendectomy Onset Date: ~1969 open History of cholecystectomy Onset Date: ~1969 open History of esophagogastroduodenoscopy (EGD) Onset Date: ~02/07/08 03/14/17 With Biopsy; '08 Ynony mild reactive gastropathy, w esophageal dilation; '17 Gwendolyn clotest negative, gastritis Family History: Family History (Last Reviewed 02/27/21 @ 22:34 by Aleah Randle RN) Brother Alive and well Sister Cancer lung Sister Diabetes Father , age 54 CAD (coronary artery disease) Hypertension CVA (cerebral vascular accident) Mother , age 70 unknown causes Hypertension Sister , age 60 No problems noted. Social History: (Last Reviewed 02/27/21 @ 22:34 by Aleah Randle RN) Social History: adopted: No Marital status: / household members: none number of children: 4 current occupational status: retired Highest level of school completed/degree received: 11th grade Service: No Tobacco: Smoking Status: Former smoker how long ago did patient quit smoking: age 56 Alcohol: alcohol intake: current alcohol intake frequency: holiday/special occasion Substance Use: substance use type: unknown Dietary Habits: caffeine: Yes Review Of Systems (GEN) - Review of Systems Generalized/Overall Review: Absent: Weakness, Chills, Fever EENTM: Absent: Blurred Vision, Double Vision Respiratory: Present: Cough, Shortness of Breath, Wheezing Cardiac: Absent: Chest Pain, Edema, Palpitations Abdominal: Present: Abdominal Pain - Subxiphoid to epigastric area sensation on food getting stuck another IV Lopressor 5 mg IV Lopressor and near her longer s he desats if she still confused from the Ativan or from something here is, Other. Absent: Nausea, Vomiting Genitourinary: Absent: Urgency, Frequency - Low sodium is going thing about up Musculoskeletal: Absent: Joint Pain, Back Pain Neurological: Present: Anxiety. Absent: Depressed Skin: Absent: Lesions, Rash Endocrine: Absent: Intolerance to Cold, Intolerance to Heat Misc: All systems neg except as marked Immunizations: IMMUNIZATION HX Immunizations Up to Date Yes Immunizations Comment has had 2 Covid History of Influenza Vaccine No Hx Pneumococcal Vaccination Yes Allergies/Adverse Reactions: Allergies Allergy/AdvReac Type Severity Reaction Status Date / Time influenza virus vaccine ts AdvReac Mild Other Verified 02/27/21 18:31 2012- [From [facility]] Home Medications: HOME MEDICATIONS albuterol sulfate 90 mcg/actuation aerosol inhaler 2 puff IH Q6H PRN #18 g 12/10/19 [Last Taken Unknown] Albuterol Sulfate 2.5 mg IH DAILY 09/28/20 [Last Taken Unknown] amlodipine 10 mg tablet 10 mg PO DAILY #30 tab 11/03/20 [Last Taken Unknown] budesonide-formoterol HFA 160 mcg-4.5 mcg/actuation aerosol inhaler 2 inh IH BID 11/03/20 [Last Taken Unknown] lorazepam 0.5 mg tablet 0.5 mg PO BID PRN #30 tab 12/22/20 [Last Taken Unknown] Ondansetron [Zofran Odt] 4 mg PO Q8H PRN #10 tab 02/07/21 [Last Taken Unknown] losartan 50 mg tablet 50 mg PO DAILY #30 tab 02/09/21 [Last Taken Unknown] Albuterol Sulfate/Ipratropium [Duoneb 2.5-0.5MG/3ML Soln] 3 ml IH TID #150 vial 02/17/21 [Last Taken Unknown] Levofloxacin [Levaquin] 500 mg PO DAILY #7 tab 02/28/21 [Last Taken Unknown] predniSONE [Prednisone] 2 tab PO DAILY #14 tab 02/28/21 [Last Taken Unknown] Exam - Exam Vital Signs: Vital Signs - Last Taken Temp 36.7 C 02/28/21 02:47 Pulse 92 02/28/21 06:12 Resp 24 H 02/28/21 06:12 BP 143/57 02/28/21 02:47 Pulse Ox 93 02/28/21 06:02 Constitutional: Present: Alert, Oriented x3 Eye Exam: bilateral eye: normal inspection, PERRL, EOMI Neck: Present: supple. Absent: lymphadenopathy (R), lymphadenopathy (L) Respiratory: Present: decreased breath sounds, wheezing - Occasional, No rales Cardiovascular/Chest: Present: regular rate, rhythm, no JVD, no murmur Abdomen: Present: Normal bowel sounds, soft, nontender, nondistended, no rebound tenderness Extremity: Present: no calf tenderness, lower extremity edema Diagnostic Studies: Abnormal Lab Results 02/27/21 02/27/21 02/27/21 Range/Units 19:00 19:00 20:25 WBC 13.1 H (4.0-10.5) K/mm3 MCHC 30.7 L (32-36) g/dl Immature Gran % (Auto) 0.70 H (0.001-0.429) % Immature Gran # (Auto) 0.09 H (0.000-0.0310) K/mm3 Neutrophils % 76.9 H (42-75.0) % Lymphocytes % 13.5 L (20-51) % Neutrophils # 10.1 H (1.3-6.0) K/mm3 pCO2 29.2 L (32.0-45.0) mmHg pO2 115.7 H (83.0-108.0) mmHg ABG pH 7.50 H (7.35-7.45) ABG O2 Sat (Measured) 98.6 H (94.0-98.0) % Anion Gap 13.9 H (6.8-13.8) mmol/L ALT 17 L (19-67) U/L Laboratory Results WBC 13.1 K/mm3 (4.0-10.5) H 02/27/21 19:00 RBC 4.76 M/mm3 (4.2-5.4) 02/27/21 19:00 Hgb 13.8 gm/dL (12.5-16.0) 02/27/21 19:00 Hct 44.9 % (37.0-47.0) 02/27/21 19: MCV 94.3 fl (78-100) 02/27/21 19: MCH 29.0 pg (27-31) 02/27/21 19: MCHC 30.7 g/dl (32-36) L 02/27/21 19:00 RDW 13.5 % (11.5-14.0) 02/27/21 19:00 Plt Count 226 K/mm3 (150-450) 02/27/21 19:00 MPV 10.5 fl (8-12.5) 02/27/21 19:00 Immature Gran % (Auto) 0.70 % (0.001-0.429) H 02/27/21 19:00 Immature Gran # (Auto) 0.09 K/mm3 (0.000-0.0310) H 02/27/21 19:00 Neutrophils % 76.9 % (42-75.0) H 02/27/21 19:00 Lymphocytes % 13.5 % (20-51) L 02/27/21 19:00 Monocytes % 6.3 % (0.0-9) 02/27/21 19:00 Eosinophils % 2.1 % (0.0-3.0) 02/27/21 19:00 Basophils % 0.5 % (0.0-1.0) 02/27/21 19:00 Nucleated RBC % 0.0 k/mm3 (0-1) 02/27/21 19:00 Neutrophils # 10.1 K/mm3 (1.3-6.0) H 02/27/21 19:00 Lymphocytes # 1.77 k/mm3 (1.5-3.5) 02/27/21 19:00 Monocytes # 0.8 k/mm3 (0.0-1.0) 02/27/21 19:00 Eosinophils # 0.3 k/mm3 (0.0-0.7) 02/27/21 19:00 Absolute Basophils 0.1 k/mm3 (0.0-0.1) 02/27/21 19:00 D-Dimer 0.40 ugFEU/mL (0.19-0.49) D 02/27/21 19:00 pCO2 29.2 mmHg (32.0-45.0) L 02/27/21 20:25 pO2 115.7 mmHg (83.0-108.0) H 02/27/21 20:25 HCO3 22.2 mmol/L (21.0-28.0) 02/27/21 20:25 Total CO2 23.1 mmol/L (19.0-24.0) 02/27/21 20:25 Base Excess -0.5 mmol/L (-2.0-3.0) 02/27/21 20:25 ABG pH 7.50 (7.35-7.45) H 02/27/21 20:25 ABG O2 Sat (Measured) 98.6 % (94.0-98.0) H 02/27/21 20:25 Sodium 139 mmol/L (132-142) 02/27/21 19:00 Plasma Sodium 139 mmol/L (130-142) 02/27/21 19:00 Potassium 4.4 mmol/L (3.4-4.6) 02/27/21 19:00 Chloride 99 mmol/L (97-106) 02/27/21 19:00 Carbon Dioxide 30.5 mmol/L (24-32.6) 02/27/21 19:00 Anion Gap 13.9 mmol/L (6.8-13.8) H 02/27/21 19:00 BUN 12 mg/dL (3-23) 02/27/21 19:00 Creatinine 0.64 mg/dL (0.4-1.4) 02/27/21 19:00 Est GFR (Non-Af Amer) 96 mL/min (60-130) D 02/27/21 19:00 BUN/Creatinine Ratio 18.8 (9.0-21.6) 02/27/21 19:00 Random Glucose 108 mg/dL (70-110) 02/27/21 19:00 Calcium 9.7 mg/dL (7.9-10.9) 02/27/21 19:00 Calcium Adj for Albumin 9.4 mg/dL (8.4-10.2) 02/27/21 19:00 Magnesium 1.6 mg/dL (1.2-2.8) 02/27/21 19:00 Total Bilirubin 0.5 mg/dL (0.0-1.1) 02/27/21 19:00 AST 13 U/L (0-48) 02/27/21 19:00 ALT 17 U/L (19-67) L 02/27/21 19:00 Alkaline Phosphatase 91 U/L (50-170) 02/27/21 19:00 Troponin I Less than 0.017 ng/mL (0.00-0.10) 02/27/21 19:00 Total Protein 8.1 gm/dL (6.2-8.2) 02/27/21 19:00 Albumin 4.0 gm/dl (3.4-5.0) 02/27/21 19:00 SARS-CoV-2 (PCR) Not detected (NotDetected) 02/27/21 20:30 Assessment/Plan - Narrative Narrative: Demi Maddox is a 75-year-old white female who was admitted for shortness of breath due to COPD exacerbation. She uses home oxygen on 2 to 3 L. Her oxygen saturation in the emergency room was 90%. She was given nebulizer treatment and IV Solu-Medrol and admitted for observation. She has had recent repeated visits to the emergency room for same problem. She says that her main problem is when she eats she has difficulty of swallowing solids and get stuck in her lower chest area and stomach area and she starts getting this pain that makes her start getting short of breath with anxiety. We will continue patient on Levaquin and IV Solu-Medrol and breathing treatments. - Assessment/Plan (1) COPD exacerbation Problem: Resolved (2) Chronic respiratory failure with hypoxia Problem: Chronic (3) Generalized anxiety disorder Problem: Chronic (4) GERD (gastroesophageal reflux disease) Problem: Chronic Qualifiers: Esophagitis presence: esophagitis presence not specified Qualified Code(s): K21.9 - Gastro-esophageal reflux disease without esophagitis (5) Osteoarthritis Problem: Chronic Qualifiers: Osteoarthritis location: unspecified site Osteoarthritis type: primary Qualified Code(s): M19.91 - Primary osteoarthritis, unspecified site (6) Hypertension Problem: Chronic Qualifiers: Hypertension type: essential hypertension Qualified Code(s): I10 - Essential (primary) hypertension (7) Sliding hiatal hernia Problem: Acute (1) COPD exacerbation Problem: Resolved (2) Chronic respiratory failure with hypoxia Problem: Chronic (3) Generalized anxiety disorder Problem: Chronic (4) GERD (gastroesophageal reflux disease) Problem: Chronic Qualifiers: Esophagitis presence: esophagitis presence not specified Qualified Code(s): K21.9 - Gastro-esophageal reflux disease without esophagitis (5) Osteoarthritis Problem: Chronic Qualifiers: Osteoarthritis location: unspecified site Osteoarthritis type: primary Qualified Code(s): M19.91 - Primary osteoarthritis, unspecified site (6) Hypertension Problem: Chronic Qualifiers: Hypertension type: essential hypertension Qualified Code(s): I10 - Essential (primary) hypertension (7) Sliding hiatal hernia Problem: Chronic Date of Discharge:: 02/28/21 Hospital Course: Demi Maddox is a 75-year-old white female with past medical history significant for COPD on home oxygen, generalized anxiety disorder, gastroesophageal reflux disease, osteoarthritis who was admitted on 02/27/2021 for shortness of breath. The patient has been in and out of our emergency room and has been on outpatient antibiotics and prednisone for episodes of shortness of breath due to COPD exacerbation. Today after her lunch she had some substernal epigastric discomfort that went to her back and she started getting shortness of breath again and wheezing. She had just finished her prednisone 5 days ago. She denies any fever or chills. She has been seeing her filter worker who had taken her out of her DuoNeb recently because of nausea. She was admitted for observation as she has failed several recent episodes of exacerbations. She was continued on IV Solu-Medrol, Levaquin, and breathing treatments. She has improved clinically. Her pain and difficulty of swallowing a second [place] to her sliding hiatal hernia. She also complained that if when she uses her inhalers she feels that it does not get into her chest and just stays in her neck area. We will need to work this up as an outpatient and she may also take this up with her lung specialist. She is stable to be discharged today and she will follow-up with me in 1 week. Procedures Performed: none Results and Findings: Lab Pending Results 02/27/21 19:00: WBC 13.1 H, RBC 4.76, Hgb 13.8, Hct 44.9, MCV 94.3, MCH 29.0, MCHC 30.7 L, RDW 13.5, Plt Count 226, MPV 10.5, Immature Gran % (Auto) 0.70 H, Immature Gran # (Auto) 0.09 H, Neutrophils % 76.9 H, Lymphocytes % 13.5 L, Monocytes % 6.3, Eosinophils % 2.1, Basophils % 0.5, Nucleated RBC % 0.0, Neutrophils # 10.1 H, Lymphocytes # 1.77, Monocytes # 0.8, Eosinophils # 0.3, Absolute Basophils 0.1 02/27/21 19:00: Sodium 139, Plasma Sodium 139, Potassium 4.4, Chloride 99, Carbon Dioxide 30.5, Anion Gap 13.9 H, BUN 12, Creatinine 0.64, Est GFR (Non-Af Amer) 96 D, BUN/Creatinine Ratio 18.8, Random Glucose 108, Calcium 9.7, Calcium Adj for Albumin 9.4, Magnesium 1.6, Total Bilirubin 0.5, AST 13, ALT 17 L, Alkaline Phosphatase 91, Troponin I Less than 0.017, Total Protein 8.1, Albumin 4.0 02/27/21 19:00: D-Dimer 0.40 D 02/27/21 20:25: pCO2 29.2 L, pO2 115.7 H, HCO3 22.2, Total CO2 23.1, Base Excess -0.5, ABG pH 7.50 H, ABG O2 Sat (Measured) 98.6 H 02/27/21 20:30: SARS-CoV-2 (PCR) Not detected Discharge Location: Home Disposition: Home self-care Condition: Stable Discharge Activity: Activity as tolerated Discharge Diet: Low salt Referrals: Pau Haywood MD [Primary Care Provider] - Additional Patient Instructions (free text): Follow-up with me in 1 week. Prescriptions (Any new or edited meds): Levofloxacin [Levaquin] 500 mg PO DAILY #7 tab Transmission Status: Pending to [facility] #[id number] predniSONE [Prednisone] 2 tab PO DAILY #14 tab Transmission Status: Pending to [facility] #[id number] Complete Home Medications List: Complete Home Medication List: albuterol sulfate 90 mcg/actuation aerosol inhaler 2 puff IH Q6H PRN #18 g 12/10/19 Albuterol Sulfate 2.5 mg IH DAILY 09/28/20 amlodipine 10 mg tablet 10 mg PO DAILY #30 tab 11/03/20 budesonide-formoterol HFA 160 mcg-4.5 mcg/actuation aerosol inhaler 2 inh IH BID 11/03/20 lorazepam 0.5 mg tablet 0.5 mg PO BID PRN #30 tab 12/22/20 Ondansetron [Zofran Odt] 4 mg PO Q8H PRN #10 tab 02/07/21 losartan 50 mg tablet 50 mg PO DAILY #30 tab 02/09/21 Albuterol Sulfate/Ipratropium [Duoneb 2.5-0.5MG/3ML Soln] 3 ml IH TID #150 vial 02/17/21 Levofloxacin [Levaquin] 500 mg PO DAILY #7 tab 02/28/21 predniSONE [Prednisone] 2 tab PO DAILY #14 tab 02/28/21 Forms: Patient Portal Registration
[2021-02-28] MEDS ORDERED: amLODIPine BESYLATE 10 MG TABLET PO SCH (09:00)
[2021-02-28] MEDS ORDERED: LOSARTAN POTASSIUM 50 MG TABLET PO SCH (09:00)
[2021-02-28 14:54] VITALS: BP 132/76
== END 2021-02-28 14:30 | disposition home or self-care (01) ==
LOC: MS 18:11 → ER 18:11 → MS 22:00
PROVIDERS: ADMIT Internal Medicine; ATTEND Internal Medicine